=== PATIENT | female | born 1945 | race Caucasian/White ===

== ENCOUNTER 2019-12-23 09:06 | Emergency (ER) | payer MEDICARE, SELFPAY ==
[2019-12-23 09:16] VITALS: BP 122/87; PULSE 83; RESP 18; TEMP 36.4; O2SAT 100
--- NOTE | 2019-12-23 09:22 | ED.FEMALEGU ---
HPI - Female Genitourinary General Chief complaint: Urogenital-Female Stated complaint: Pos UTI Time Seen by Provider: 12/23/19 09:26 Source: patient and RN notes reviewed Mode of arrival: ambulatory Limitations: no limitations History of Present Illness HPI Narrative: 74-year-old female presents with concern for urinary tract infection. Reports suprapubic pressure for the last several days, today she noticed hematuria and dysuria. Reports history of urinary tract infections. She denies flank pain, abdominal pain, abnormal vaginal discharge or bleeding. MD elicited complaint: UTI Related Data Home Medications Medication Instructions Recorded Confirmed atorvastatin 20 mg tablet 20 mg PO DAILY 10/16/19 12/23/19 calcium carbonate 600 mg (1,500 1 tablet PO DAILY 10/16/19 12/23/19 mg)-vitamin D3 200 unit tablet cholecalciferol (vitamin D3) 50 2,000 unit PO DAILY 10/16/19 12/23/19 mcg (2,000 unit) tablet magnesium 30 mg tablet 60 mg PO DAILY tablet 10/16/19 12/23/19 multivitamin 1 tablet PO DAILY 10/16/19 12/23/19 omega-3 fatty acids 1,000 mg 1,000 mg PO DAILY 10/16/19 12/23/19 capsule Allergies Allergy/AdvReac Type Severity Reaction Status Date / Time No Known Allergies Allergy Unknown Verified 12/23/19 09:20 Review of Systems Review of Systems: Narrative: CONSTITUTIONAL: Denies malaise, chills, sweats, or fever. CARDIOVASCULAR: Denies chest pain, palpitations RESPIRATORY: Denies dyspnea. GASTROINTESTINAL: Denies abdominal pain, nausea, vomiting, diarrhea, bloody, or mucous stools. GENITOURINARY: Reports dysuria, suprapubic pressure, hematuria. MUSCULOSKELETAL: Denies back pain All systems reviewed & are unremarkable except as noted in HPI and below PMFSH Past Medical History Medical History (Updated 12/23/19 @ 09:34 by Francie Simmons NP) Allergies Eczema Hip pain Hyperlipidemia Osteoporosis Postherpetic neuralgia Surgical History Surgical History (Updated 10/16/19 @ 06:44 by Wen Matt CMA) H/O tubal ligation 1977 History of appendectomy 1961 Family History Family History (Updated 10/13/19 @ 12:40 by Wen Matt CMA) Daughter Heart valve disorder Mother Brain aneurysm Sibling Aortic dissection Social History Social History (Updated 10/16/19 @ 08:00 by Wen Matt [facility]) Smoking status: Former smoker Alcohol intake: current Comments At time of signature, agree with nursing past medical, surgical, social and family history. There is no relevant family history pertinent to the presenting complaint Exam Narrative: Exam Narrative: GENERAL: Well-appearing, well-nourished, and in no acute distress. HEAD: Normocephalic. EYES: PERRLA, conjunctivae clear. NECK: Supple. No lymphadenopathy CHEST: Clear to auscultation. No respiratory distress. HEART: Regular rate and rhythm. No murmur heard. Normal peripheral pulses. ABDOMEN: Soft, nontender upon palpation, nondistended, no palpable or pulsatile masses, no guarding. No CVA tenderness SKIN: Warm, dry, no rash. NEURO: Alert and oriented x3. PSYCH: Normal mood and affect Course Course Emergency Course: Patient is aware of diagnosis, understands and agrees to treatment plan. Anticipatory guidance given. Patient agrees to follow-up as directed and is aware of reasons to seek care at the emergency department. Portions of this record may have been created with voice recognition software Vital Signs Vital signs: Vital Signs Temperature 97.5 F L 12/23/19 09:16 Pulse Rate 83 12/23/19 09:16 Respiratory Rate 18 12/23/19 09:16 Blood Pressure 122/87 12/23/19 09:16 Pulse Oximetry 100 12/23/19 09:16 Temperature 97.5 F L 12/23/19 09:16 Pulse Rate 83 12/23/19 09:16 Respiratory Rate 18 12/23/19 09:16 Blood Pressure 122/87 12/23/19 09:16 Pulse Oximetry 100 12/23/19 09:16 Reviewed. Patient has been instructed to follow up with her primary care provider within the next week regarding
== END 2019-12-23 09:41 | disposition home or self-care (01) ==
PROVIDERS: Emergency Provider Nurse Practitioner; PCP Internal Medicine
DX: R30.0 Dysuria (principal); R31.9 Hematuria, unspecified; R10.30 Lower abdominal pain, unspecified; Z87.891 Personal history of nicotine dependence; E78.5 Hyperlipidemia, unspecified; M81.0 Age-related osteoporosis without current pathological fracture
CPT/HCPCS: 81003; 87077; 87086; 87088; 87186; 99213; G0463

== ENCOUNTER 2020-03-28 12:04 | Outpatient (CLI) | payer MEDICARE, SELFPAY ==
--- NOTE | ~2020-03-28 | XR_ITS ---
EXAMINATION: XR chest 2V DATE: 03/28/2020 12:17 INDICATION: Cough. TECHNIQUE: Frontal and lateral views of the chest were obtained. COMPARISON: None. FINDINGS: There is mild scarring at the lung apices. No pleural effusion or pneumothorax. The heart s ize is normal. IMPRESSION: 1. Mild scarring at the lung apices. Reviewed, dictated and finalized at location A.
== END 2020-03-28 12:05 | disposition home or self-care (01) ==
PROVIDERS: PCP Internal Medicine; Visit Provider Clinical Nurse Specialist
DX: R05 Cough (principal)
CPT/HCPCS: 71046

== ENCOUNTER 2020-06-08 09:18 | Emergency (ER) | payer MEDICARE, SELFPAY ==
--- NOTE | 2020-06-08 09:31 | ED.GENADULT ---
HPI - General Adult General Chief complaint: Urogenital-Female Stated complaint: Blood in urine Time Seen by Provider: 06/08/20 09:46 Source: patient Mode of arrival: ambulatory Limitations: no limitations History of Present Illness HPI narrative: 74-year-old female patient presents to the [facility] with complaints of blood in her urine that she noticed this morning. Patient states she does get UTIs frequently. Patient states she has had a little bit of discomfort to the left flank area. Denies any fevers, body aches or chills. Denies any nausea, vomiting or diarrhea. Related Data Home Medications Medication Instructions Recorded Confirmed atorvastatin 20 mg tablet 20 mg PO DAILY 10/16/19 06/08/20 calcium carbonate 600 mg (1,500 1 tablet PO DAILY 10/16/19 06/08/20 mg)-vitamin D3 200 unit tablet cholecalciferol (vitamin D3) 50 2,000 unit PO DAILY 10/16/19 06/08/20 mcg (2,000 unit) tablet multivitamin 1 tablet PO DAILY 10/16/19 06/08/20 omega-3 fatty acids 1,000 mg 1,000 mg PO DAILY 10/16/19 06/08/20 capsule teriparatide [Forteo] mcg SUBCUT 06/08/20 Allergies Allergy/AdvReac Type Severity Reaction Status Date / Time No Known Allergies Allergy Unknown Verified 06/08/20 09:36 Review of Systems Review of Systems: Narrative: CONSTITUTIONAL: Denies fever, chills, or sweats. EYES: Denies visual changes, redness, or discharge. ENT: Denies rhinorrhea, congestion, sore throat, or otalgia. CARDIOVASCULAR: Denies chest pain, palpitations, or edema. RESPIRATORY: Denies cough or dyspnea. GASTROINTESTINAL: Denies abdominal pain, nausea, vomiting, or diarrhea. GENITOURINARY: Denies dysuria, positive hematuria. SKIN: Denies rash or itching. MUSCULOSKELETAL: Denies back pain, joint pain, or myalgia. NEUROLOGIC: Denies headache, numbness, or weakness. PSYCHIATRIC: Denies anxiety or depression. [facility] Past Medical History Medical History Allergies Eczema Hip pain Hyperlipidemia Osteoporosis Postherpetic neuralgia Surgical History Surgical History H/O tubal ligation 1977 History of appendectomy 1961 Family History Family History Daughter Heart valve disorder Mother Brain aneurysm Sibling Aortic dissection Social History Social History Smoking status: Former smoker Alcohol intake: current Comments At the time of my signature I agree with nursing past medical history, surgical, social, and family history. There is no relevant family history pertinent to the presenting complaint. Exam Narrative: Exam Narrative: GENERAL: Well-appearing, well-nourished, and in no acute distress. HEAD: Normocephalic, atraumatic. EYES: PERRLA and EOMI. ENT: Nares clear, no rhinorrhea or epistaxis. Mucous membranes moist. NECK: Supple. No lymphadenopathy CHEST: Clear to auscultation. No respiratory distress. HEART: Regular rate and rhythm. No murmur heard. Normal peripheral pulses. ABDOMEN: Soft, nontender, nondistended, normal active bowel sounds. No CVA tenderness on percussion. Patient does have a little bit of tenderness to the suprapubic area on palpation. EXTREMITIES: Normal range of motion. No edema. SKIN: Warm, dry, no rash. NEURO: No focal deficits. Alert and oriented x3. Course Vital Signs Vital signs: Vital Signs Temperature 36.5 C 06/08/20 09:36 Pulse Rate 75 06/08/20 09:36 Respiratory Rate 12 06/08/20 09:36 Blood Pressure 130/63 06/08/20 09:36 Pulse Oximetry 97 06/08/20 09:36 Temperature 36.5 C 06/08/20 09:36 Pulse Rate 75 06/08/20 09:36 Respiratory Rate 12 06/08/20 09:36 Blood Pressure 130/63 06/08/20 09:36 Pulse Oximetry 97 06/08/20 09:36 Vital signs reviewed. Medical Decision Making Differential Diagnosis Differential Diagnosis: Di
[2020-06-08 09:36] VITALS: BP 130/63; PULSE 75; RESP 12; TEMP 36.5; O2SAT 97
== END 2020-06-08 10:00 | disposition home or self-care (01) ==
PROVIDERS: Emergency Provider Nurse Practitioner Family; PCP Internal Medicine
DX: N30.01 Acute cystitis with hematuria (principal); Z87.891 Personal history of nicotine dependence; E78.5 Hyperlipidemia, unspecified; M81.0 Age-related osteoporosis without current pathological fracture; B02.29 Other postherpetic nervous system involvement
CPT/HCPCS: 81003; 87077; 87086; 87088; 87186; 99213; G0463

== ENCOUNTER 2020-07-02 08:07 | Outpatient (CLI) | payer MEDICARE, SELFPAY ==
--- NOTE | ~2020-07-02 | MM_ITS ---
EXAMINATION: MM screening [facility] HISTORY: Screening mammogram TECHNIQUE: Craniocaudal and mediolateral oblique 3-D tomosynthesis images were obtained and synthetic 2-D images were generated. CAD analysis was submitted and interpreted. COMPARISON: 06/09/2019, 05/23/2018, 02/04/2017 bilateral digital screening mammogram examinations BREAST PARENCHYMAL COMPOSITION: There are scattered areas of fibroglandular density. FINDINGS: There is stable fibroglandular asymmetry. There is no evidence of suspicious mass, calcific ation, or architectural distortion to suggest malignancy in either breast. There has been no suspicio us interval change. IMPRESSION: 1. No mammographic evidence of malignancy. 2. Recommend routine screening mammography in one year. BI-RADS Category 2: Benign finding(s). Reviewed, dictated and finalized at location A.
== END 2020-07-02 08:08 | disposition home or self-care (01) ==
PROVIDERS: PCP Internal Medicine; Visit Provider Internal Medicine
DX: Z12.31 Encounter for screening mammogram for malignant neoplasm of breast (principal)
CPT/HCPCS: 77063; 77067

== ENCOUNTER 2021-04-10 09:12 | Outpatient (CLI) | payer MEDICARE, SELFPAY ==
--- NOTE | ~2021-04-10 | DEXA_ITS ---
Bone Density Report Name: Sarita Lieberman Age: 75 Sex: Female Ethnicity: White Date of : 1945 Indication: postmenopausal osteoporosis; monitoring treatment; height loss; Referring Provider: Sushil, Crystal Freire Study: Bone densitometry was performed. Exam Date: April 10, 2021 Accession number: [id number] Bone Density: Region BMD T-score Z-score Classification AP Spine (L1-L4) 0.684 -3.3 -0.9 Osteoporosis Femoral Neck (Left) 0.554 -2.7 -0.6 Osteoporosis Total Hip (Left) 0.717 -1.8 -0.1 Osteopenia World Health Organization criteria for BMD impression classify patients as: Normal (T-score at or above -1.0), Osteopenia (T-score between -1.0 and -2.5), or Osteoporosis (T-score at or below -2.5). 10-year Fracture Risk: FRAX not reported because: Some T-score for Spine Total or Hip Total or Femoral Neck at or below -2.5 Treated for osteoporosis Previous Exams: Region Exam Age BMD T-score BMD Change BMD Change Date g/cm2 vs Baseline vs Previous AP Spine(L1-L4) 04/10/2021 75 0.684 -3.3 0.032(5.0%)* 0.032(5.0%)* 09/15/2018 72 0.652 -3.6 Total Hip(Left) 04/10/2021 75 0.717 -1.8 -0.012(-1.7%) -0.012(-1.7%) 09/15/2018 72 0.729 -1.7 *Denotes significance at 95% confidence level, LSC for AP Spine = 0.022 g/cm2, LSC for Total Hip = 0.027 g/cm2 Clinical Information Provided by Patient: Is being treated for osteoporosis Has used the following medications: Forteo (i.e. parathyroid hormone), Vitamin D, Calcium Patient maximum height was 65 Menopause Age: 46 Drinks caffeinated beverages Onset of menses at age 14 Number of children 2 Impression: The patient has osteoporosis, based on the Total Spine T-score. No significant bone loss was observed. Discussion: PATIENT UNDER TREATMENT WITH NO SIGNIFICANT BMD LOSS SINCE LAST EXAM. In an untreated patient, BMD typically declines with age. A lack of decline or gain is usually a sign that treatment is efficacious and fracture risk is reduced. It is important to ask patients whether they are taking their medications and to encourage continued and appropriate compliance with their osteoporosis therapies to reduce fracture risk. It is also important to review their risk factors and encourage appropriate calcium and vitamin D intakes, exercise, fall prevention and other lifestyle measures. Follow-Up: Consider a repeat BMD and Vertebral Fracture Assessment (VFA) exam in 2 years or sooner if medically necessary, to reassess this patient's status. Reported by: JORGE LUIS on 04/10/2021 9:36:00 A
== END 2021-04-10 09:13 | disposition home or self-care (01) ==
PROVIDERS: PCP Internal Medicine; Visit Provider Internal Medicine Endocrinology, Diabetes & Metabolism
DX: M81.0 Age-related osteoporosis without current pathological fracture (principal); M85.88 Other specified disorders of bone density and structure, other site
CPT/HCPCS: 77080

== ENCOUNTER 2021-07-08 08:57 | Outpatient (CLI) | payer MEDICARE, SELFPAY ==
--- NOTE | ~2021-07-08 | MM_ITS ---
EXAMINATION: MM screening [facility] HISTORY: Screening TECHNIQUE: Craniocaudal and mediolateral oblique 3-D tomosynthesis images were obtained and synthetic 2-D images were generated. CAD analysis was submitted and interpreted. COMPARISON: Comparison to multiple prior studies sequentially, with oldest reviewed study dated 11/26. BREAST PARENCHYMAL COMPOSITION: Breast composed of scattered areas of fibroglandular density. FINDINGS: There is no evidence of suspicious mass, calcification, or architectural distortion to sugg est malignancy in either breast. There has been no suspicious interval change. IMPRESSION: 1. No mammographic evidence of malignancy. 2. Recommend routine screening mammography in one year. BI-RADS Category 1: Negative Reviewed, dictated and finalized at location A.
== END 2021-07-08 08:58 | disposition home or self-care (01) ==
PROVIDERS: PCP Internal Medicine; Visit Provider Obstetrics & Gynecology
DX: Z12.31 Encounter for screening mammogram for malignant neoplasm of breast (principal)
CPT/HCPCS: 77063; 77067

== ENCOUNTER → 2021-11-03 09:49 | Outpatient (CLI) | payer MEDICARE, SELFPAY ==
--- NOTE | ~2021-11-03 | CT_ITS ---
EXAMINATION: CT cervical spine wo con DATE: 11/03/2021 10:03 INDICATION: Spondylolisthesis, cervical region. TECHNIQUE: Computed tomography (CT) of the cervical spine was performed without intravenous contrast. Automated exposure control and iterative reconstruction technique were employed. The dose-length pro duct was 122.20 mGy-cm. COMPARISON: None FINDINGS: There is mild scarring at the lung apices. There is 4 degrees dextrocurvature of cervical s pine. There is 3 mm anterolisthesis of C4 on C5 and 2 mm retrolisthesis of C5 on C6. Vertebral body h eights are normal. There is moderately decreased disc height at C4-C5, severely decreased disc height at C5-C6, and mildly decreased disc height at C6-C7. The following disc levels are specifically disc ussed: C2-C3: There is no uncovertebral joint osteoarthritis. There is moderate right and severe left facet joint osteoarthritis. There is no neural foraminal stenosis. There is no central canal stenosis. C3-C4: There is no uncovertebral joint osteoarthritis. There is severe bilateral facet joint osteoart hritis. There is no neural foraminal stenosis. There is no central canal stenosis. C4-C5: There is moderate right and mild left uncovertebral joint osteoarthritis. There is severe bila teral facet joint osteoarthritis. There is no neural foraminal stenosis. There is mild central canal stenosis. C5-C6: There is severe bilateral uncovertebral joint osteoarthritis. There is mild bilateral facet tarik int osteoarthritis. There is mild bilateral neural foraminal stenosis. There is mild central canal st enosis. C6-C7: There is mild right and moderate left uncovertebral joint osteoarthritis. There is mild bilate ral facet joint osteoarthritis. There is mild left neural foraminal stenosis. There is mild central c anal stenosis. C7-T1: There is no uncovertebral joint osteoarthritis. There is severe bilateral facet joint osteoart hritis. There is no neural foraminal stenosis. There is no central canal stenosis. IMPRESSION: 1. Severe cervical spondylosis. Reviewed, dictated and finalized at location A. R LATCHER
== END ==
PROVIDERS: PCP Family Medicine; Visit Provider Family Medicine
DX: M43.12 Spondylolisthesis, cervical region (principal)
CPT/HCPCS: 72125

== ENCOUNTER 2022-09-18 08:22 | Outpatient (CLI) | payer MEDICARE, SELFPAY ==
--- NOTE | ~2022-09-18 | MM_ITS ---
EXAMINATION: MM screening [facility] HISTORY: Screening mammogram TECHNIQUE: Craniocaudal and mediolateral oblique 3-D tomosynthesis images were obtained and synthetic 2-D images were generated. CAD analysis was submitted and interpreted. COMPARISON: 06/30/2021, 07/02/2020, 06/09/2019 BREAST PARENCHYMAL COMPOSITION: There are scattered areas of fibroglandular density. FINDINGS: No suspicious mass, calcification, or architectural distortion are identified in either collin ast to suggest malignancy. There has been no suspicious interval change. IMPRESSION: 1. No mammographic evidence of malignancy. 2. Recommend routine screening mammography in one year. BI-RADS Category 1: Negative Reviewed, dictated and finalized at location A. THESIOLOGY MEDICAL DOCTOR
== END 2022-09-18 08:23 | disposition home or self-care (01) ==
PROVIDERS: PCP Nurse Practitioner Family; Visit Provider Family Medicine
DX: Z12.31 Encounter for screening mammogram for malignant neoplasm of breast (principal)
CPT/HCPCS: 77063; 77067

== ENCOUNTER 2023-05-17 08:18 | Emergency (ER) | payer MEDICARE, SELFPAY ==
--- NOTE | 2023-05-17 08:26 | ED.FEMALEGU ---
HPI - Female Genitourinary General Chief complaint: Urogenital-Female Stated complaint: UTI symtoms Time Seen by Provider: 05/17/23 08:27 Source: patient Mode of arrival: ambulatory Limitations: no limitations History of Present Illness HPI Narrative: Sarita is a 77-year-old female patient presenting to the clinic today with complaints of possible UTI. She reports she developed symptoms yesterday with burning, frequency, urgency, and blood in her urine with blood clots. States she is having some lower abdominal bladder pain. Denies any fever, chills, nausea, vomiting, diarrhea, or flank pain. States she gets urinary tract infections approximately 1 time per year. Related Data Home Medications Medication Instructions Recorded Confirmed multivitamin 1 tablet PO DAILY 10/16/19 05/17/23 omega-3 fatty acids-fish oil 300 1 cap PO DAILY 10/10/20 05/17/23 mg-500 mg capsule (Fish Oil) cholecalciferol (vitamin D3) 125 125 mcg PO DAILY 07/15/21 05/17/23 mcg (5,000 unit) capsule atorvastatin 40 mg tablet 40 mg PO DAILY 11/06/21 05/17/23 ezetimibe 10 mg tablet (Zetia) 10 mg PO DAILY 05/06/22 05/17/23 Allergies Allergy/AdvReac Type Severity Reaction Status Date / Time No Known Allergies Allergy Unknown Verified 05/17/23 08:30 Review of Systems Review of Systems: Pertinent positives per HPI. Patient denies any fever, chills, rash, headache, visual changes, dizziness, cough, runny nose, sore throat, shortness of breath, chest pain, palpitations, nausea, vomiting, diarrhea, constipation. [facility] Past Medical History Medical History Abscess (~05/24/22) infected sebaceous cyst right lower abdomen Allergies Anterolisthesis of cervical spine (~10/23/21) grade 2 anterolisthesis of C4 on C5, unstable with slippage on flexion and extension films on 10/23/2021 by chiropractor . Severe cervical spondylosis on CT of the cervical spine on 11/03/2021 Anxiety B12 deficiency BMI 22.0-22.9, adult BMI 23.0-23.9, adult Breast cancer screening by mammogram mammogram normal 09/18/2022. Chronic neck pain Eczema Elevated serum creatinine Encounter to establish care Family history of cerebral aneurysm mother at age 57 of a cerebral aneurysm Family history of dissection of thoracic aorta sister of a dissecting thoracic aortic aneurysm. 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 Hip pain Hyperlipidemia Osteoporosis Overactive bladder Postherpetic neuralgia Surgical History Surgical History H/O tubal ligation 1977 History of appendectomy 1961 History of hip replacement Right hip 11/14/2018 Family History Family History Daughter Heart valve disorder Mother Brain aneurysm Heart disease Sibling Aortic dissection Heart disease Social History Social History Smoking status: Former smoker Alcohol intake: current Alcohol use details: Pt drinks occasionally. Substance use: never Substance use type: does not use Comments At the time of my signature, I reviewed and agree with the nursing past medical, surgical, social, and family history. There is no relevant family history pertinent to the patient complaint. Exam Narrative: General: Well-developed, well nourished, in no apparent distress. Head: Normocephalic, atraumatic. Cardio: Regular rate and rhythm, s1 and s2 normal, no murmur appreciated. Resp: Clear to auscultation bilaterally, no rhonchi, rales, wheezing or rubs. Abdomen: Soft, pliable, bowel sounds present in all quadrants, tender to palpation over the suprapubic area, no organomegly, no CVAT tenderness. Course Course Emergency Course: Portions of this record may have been created with voice recognition software. Level
[2023-05-17 08:35] VITALS: BP 153/86; PULSE 78; RESP 16; TEMP 36.8; O2SAT 99
--- NOTE | 2023-05-17 08:56 | PC.NURSE ---
0848- went in to discharge pt, and explained medications, and pt states that she thinks bactrim is the one abx that made her really sick, and i asked what sick she had, and states that she couldnt recall but just knew that she was ill. i informed provider and he is going in to talk with her.
== END 2023-05-17 09:00 | disposition home or self-care (01) ==
PROVIDERS: Emergency Provider Nurse Practitioner Family; PCP Family Medicine
DX: N30.01 Acute cystitis with hematuria (principal); Z87.891 Personal history of nicotine dependence; E78.5 Hyperlipidemia, unspecified; M81.0 Age-related osteoporosis without current pathological fracture; Z96.641 Presence of right artificial hip joint
CPT/HCPCS: 81003; 87077; 87086; 87186; 99213; G0463

== ENCOUNTER 2024-01-31 07:07 | Outpatient (CLI) | payer MEDICARE, SELFPAY ==
--- NOTE | ~2024-01-31 | MM_ITS ---
EXAMINATION: MM screening [facility] HISTORY: Screening mammogram TECHNIQUE: Craniocaudal and mediolateral oblique 3-D tomosynthesis images were obtained and synthetic 2-D images were generated. CAD analysis was submitted and interpreted. COMPARISON: 09/18/2022, 07/08/2021 bilateral screening mammogram examinations BREAST PARENCHYMAL COMPOSITION: There are scattered areas of fibroglandular density. FINDINGS: There is no evidence of suspicious mass, calcification, or architectural distortion to sugg est malignancy in either breast. There has been no suspicious interval change. IMPRESSION: 1. No mammographic evidence of malignancy. 2. Recommend routine screening mammography in one year. BI-RADS Category 1: Negative Reviewed, dictated and finalized at location A.
== END 2024-01-31 07:08 | disposition home or self-care (01) ==
LOC: ANHIMG 07:13
PROVIDERS: PCP Family Medicine; Visit Provider Obstetrics & Gynecology
DX: Z12.31 Encounter for screening mammogram for malignant neoplasm of breast (principal)
CPT/HCPCS: 77063; 77067

== ENCOUNTER 2024-02-03 05:52 | Day surgery (SDC) | payer MEDICARE, SELFPAY ==
[2023-11-16 10:45] VITALS: BMI 22.6
--- NOTE | 2024-02-02 11:24 | WPDANESEPPF ---
Anes - Initial Pre Proc Eval Procedure: Operation Date: 02/03/24 07:30 Proposed Procedures p Screening Colonoscopy - Yair Kebede MD Date/Time: 02/02/24 11:24 Surgeon: Yair Kebede MD Pre Op Diagnosis: Neoplasm Screening Patient Data Age: 78 Gender: F Height: 1.63 m Weight: 61.5 kg Allergies Allergy/AdvReac Type Severity Reaction Status Date / Time No Known Allergies Allergy Unknown Verified 02/03/24 06:30 Home Medications Medication Instructions Recorded Confirmed Type multivitamin 1 tablet PO DAILY 10/16/19 12/23/23 History omega-3 fatty acids-fish oil 300 1 cap PO DAILY 10/10/20 12/23/23 History mg-500 mg capsule (Fish Oil) atorvastatin 40 mg tablet 40 mg PO DAILY 11/06/21 02/03/24 History ezetimibe 10 mg tablet (Zetia) 10 mg PO DAILY 05/06/22 12/23/23 History cholecalciferol (vitamin D3) 25 25 mcg PO DAILY 11/15/23 12/23/23 History mcg (1,000 unit) capsule trimethoprim 100 mg tablet 100 mg PO QHS 11/15/23 12/23/23 History sodium,potassium,mag sulfates 17.5 See Rx Instructions PO .COMPLEX 11/16/23 02/03/24 Rx gram-3.13 gram-1.6 gram oral soln #354 mL (Suprep Bowel Prep Kit) Patient hx anesthesia problems: none Family hx anesthesia problems: none Results Review: All pre-operative results and documents have been reviewed as part of the pre-operative evaluation. [facility] Past Medical History Medical History (Updated 01/31/24 @ 19:16 by Nestor Estrella MD) Abscess (~05/24/22) infected sebaceous cyst right lower abdomen Allergies Anterolisthesis of cervical spine (~10/23/21) grade 2 anterolisthesis of C4 on C5, unstable with slippage on flexion and extension films on 10/23/2021 by chiropractor . Severe cervical spondylosis on CT of the cervical spine on 11/03/2021 Anxiety B12 deficiency BMI 22.0-22.9, adult BMI 23.0-23.9, adult Breast cancer screening by mammogram mammogram normal 09/18/2022. Normal mammogram 01/31/2024. Chronic neck pain Colon cancer screening Dysuria Eczema Elevated liver enzymes Elevated serum creatinine Encounter to establish care Family history of cerebral aneurysm mother at age 57 of a cerebral aneurysm Family history of dissection of thoracic aorta sister of a dissecting thoracic aortic aneurysm. 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 Hip pain Hyperlipidemia Osteoporosis Overactive bladder Postherpetic neuralgia UTI (urinary tract infection) Surgical History Surgical History H/O tubal ligation 1977 History of appendectomy 1961 History of hip replacement Right hip 11/14/2018 Family History Family History Daughter Heart valve disorder Mother Brain aneurysm Heart disease Sibling Aortic dissection Heart disease Social History Social History Smoking status: Never smoker Alcohol intake: current Drinks per week: 2 Alcohol use details: Pt drinks occasionally. Substance use: never Substance use type: does not use Living arrangements: with family Anes - Eval Final PreProcedure Day of Procedure 02/02/24 11:24 Patient weight: normal Heart: regular rate and rhythm Lungs: clear to auscultation and normal air movement Airway: Mallampati scale class II Neurological: alert and oriented Last oral intake: >/= 8 hours ASA classification: II Emergent: no Anesthetic plan: proceed Anesthesia type and monitoring: general GIVS and standard monitoring Results Review: All pre-operative results and documents have been reviewed as part of the pre-operative evaluation. Informed Consent: The patient's anesthetic plan and its attendant risks and benefits were discussed with the patient/family/POA. Questions were solicited and answers provided to the satisfaction of the patient/family/POA.
[2024-02-03 06:46] VITALS: BP 130/83; PULSE 82; RESP 16; TEMP 36.9; O2SAT 100; BMI 22.6
[2024-02-03] MEDS: LACTATED RINGERS 1,000 ML 150 ML IV CONT (06:56)
--- NOTE | 2024-02-03 07:17 | PM.HPGS ---
History of Present Illness History of Present Illness Consent: Risks, benefits, and alternatives have been discussed and questions answered. Patient agrees to proceed with procedure. Chief complaint: Neoplasm Screening Narrative: Sarita Lieberman is a 78 year old female presents for screening colonoscopy. Patient's current weight appetite and bowel movements are normal. Patient is abdominal pain. She has had no bleeding. Family history is noncontributory. Review of Systems Review of Systems: All systems reviewed & are unremarkable except as noted in HPI and below PMFSH Past Medical History Medical History (Updated 01/31/24 @ 19:16 by Nestor Estrella MD) Abscess (~05/24/22) infected sebaceous cyst right lower abdomen Allergies Anterolisthesis of cervical spine (~10/23/21) grade 2 anterolisthesis of C4 on C5, unstable with slippage on flexion and extension films on 10/23/2021 by chiropractor . Severe cervical spondylosis on CT of the cervical spine on 11/03/2021 Anxiety B12 deficiency BMI 22.0-22.9, adult BMI 23.0-23.9, adult Breast cancer screening by mammogram mammogram normal 09/18/2022. Normal mammogram 01/31/2024. Chronic neck pain Colon cancer screening Dysuria Eczema Elevated liver enzymes Elevated serum creatinine Encounter to establish care Family history of cerebral aneurysm mother at age 57 of a cerebral aneurysm Family history of dissection of thoracic aorta sister of a dissecting thoracic aortic aneurysm. 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 Hip pain Hyperlipidemia Osteoporosis Overactive bladder Postherpetic neuralgia UTI (urinary tract infection) Surgical History Surgical History H/O tubal ligation 1977 History of appendectomy 1961 History of hip replacement Right hip 11/14/2018 Family History Family History Daughter Heart valve disorder Mother Brain aneurysm Heart disease Sibling Aortic dissection Heart disease Social History Social History Smoking status: Never smoker Alcohol intake: current Drinks per week: 2 Alcohol use details: Pt drinks occasionally. Substance use: never Substance use type: does not use Living arrangements: with family Meds Home Medications and Allergies Home Medications Medication Instructions Recorded Confirmed Type multivitamin 1 tablet PO DAILY 10/16/19 12/23/23 History omega-3 fatty acids-fish oil 300 1 cap PO DAILY 10/10/20 12/23/23 History mg-500 mg capsule (Fish Oil) atorvastatin 40 mg tablet 40 mg PO DAILY 11/06/21 02/03/24 History ezetimibe 10 mg tablet (Zetia) 10 mg PO DAILY 05/06/22 12/23/23 History cholecalciferol (vitamin D3) 25 25 mcg PO DAILY 11/15/23 12/23/23 History mcg (1,000 unit) capsule trimethoprim 100 mg tablet 100 mg PO QHS 11/15/23 12/23/23 History sodium,potassium,mag sulfates 17.5 See Rx Instructions PO .COMPLEX 11/16/23 02/03/24 Rx gram-3.13 gram-1.6 gram oral soln #354 mL (Suprep Bowel Prep Kit) Allergies Allergy/AdvReac Type Severity Reaction Status Date / Time No Known Allergies Allergy Unknown Verified 02/03/24 06:30 Vital Signs Vital Signs - 24 hr 02/03/24 06:46 Temperature 98.4 F Pulse Rate 82 Respiratory Rate 16 Blood Pressure 130/83 Pulse Oximetry 100 Oxygen Delivery Room Air Exam Narrative: Physical exam reveals patient to be alert. Vital signs stable. HEENT exam is unremarkable. Patient is anicteric. Lungs are clear to auscultation and percussion. Heart is without murmur or extra sounds. Abdomen bowel sounds are present soft nontender with we. Digital external rectal exam is normal. Assessment and Plan Assessment and plan (1) Colon cancer screening: Code(s): Z12.11 - Encounter for screening for malignant neoplasm of colon Status
[2024-02-03 07:45] VITALS: BP 111/62; PULSE 83; RESP 18; O2SAT 98
[2024-02-03 07:55] VITALS: BP 114/77; PULSE 71; RESP 14; O2SAT 99
[2024-02-03 08:05] VITALS: BP 117/96; PULSE 66; RESP 16; O2SAT 100
--- NOTE | 2024-02-03 11:25 | WPDANESPN ---
Anes - Prog Note Post-Op Date/Time: 02/03/24 11:25 Cardiovascular status: normal Respiratory status: normal Airway patency: baseline Mental status: baseline Post-Op hydration status: normal Vital Signs: Last Vital Signs Temp 36.9 C 02/03/24 06:46 Pulse 66 02/03/24 08:05 Resp 16 02/03/24 08:05 BP 117/96 H 02/03/24 08:05 Pulse Ox 100 02/03/24 08:05 O2 Del Method Room Air 02/03/24 08:05 Pain Score (VAS): 0 I/O: Intake & Output 02/02/24 02/03/24 02/03/24 23:59 07:59 15:59 Intake Total 300 300 Balance 300 300 Post-procedural complaints: none Patient Feedback: Patient satisfied with anesthetic care. Other Findings: Patient vital signs back to baseline. Patient denies nausea and vomiting. Patient's pain under control. Patient OK for discharge.
== END 2024-02-03 08:14 | disposition home or self-care (01) ==
PROVIDERS: PCP Family Medicine; Visit Provider Internal Medicine Gastroenterology
PROC: 0DJD8ZZ Inspection of Lower Intestinal Tract, Via Natural or Artificial Opening Endoscopic (ICD-10-PCS; CPT 45378; principal; 2024-02-03 07:30)
DX: Z12.11 Encounter for screening for malignant neoplasm of colon (principal); K57.30 Diverticulosis of large intestine without perforation or abscess without bleeding; K64.8 Other hemorrhoids
CPT/HCPCS: 45378

== ENCOUNTER 2025-03-28 13:03 | Emergency (ER) | payer MEDICARE, SELFPAY ==
--- NOTE | ~2025-03-28 | CT_ITS ---
CLINICAL INDICATION: Left flank pain COMPARISON: None. TECHNIQUE: Multiple contiguous axial images of the abdomen and pelvis were performed following the ad ministration of with 100 mL Omnipaque-350 intravenous contrast The dose-length product (DLP) was 293.81 mGy-cm. Automated exposure control and iterative reconstruction technique were employed. FINDINGS/OBSERVATIONS: Visualized lower thorax: The bilateral lung bases are clear. The heart is of normal size, without pericardial effusion. Liver: The liver demonstrates homogeneous enhancement and is enlarged measuring 19 cm in longitudinal dimens ion. Gallbladder and biliary system: The gallbladder is distended, with layering sludge.. Pancreas: The pancreas enhances homogeneously without ductal dilatation. Spleen: The spleen enhances homogeneously and is not enlarged. Kidneys: Global enlargement of the left kidney with surrounding inflammatory change. Left-sided hydronephrosis is also suspected. No obstructing stone is identified. The right kidney is unremarkable, as is the right ureter. Adrenal glands: Unremarkable. Gastrointestinal tract: Colonic diverticulosis without surrounding inflammatory change. Fecal stasis within the colon. Appendix: The appendix is not definitively visualized. However, no pericecal inflammatory change is identified suggest the presence of acute appendicitis. Vasculature: Unremarkable. Lymph nodes: Limited evaluation without intravenous contrast. Pelvic structures: The bladder is distended, and otherwise unremarkable. The uterus is not visualized, presumably surgically absent. Body wall and musculoskeletal: Small fat-containing umbilical hernia. Age-appropriate degenerative disease within the lumbosacral spine. IMPRESSION: Global enlargement of the left kidney with lower and midpole hydronephrosis. Limited evaluation beyond this characterization for which contrast enhanced imaging is suggested (if the patient is clinically able). Reviewed, dictated and finalized at location A. IMPRESSION: Global enlargement of the left kidney with lower and midpole hydronephrosis. Limited evaluation beyond this characterization for which contrast enhanced vladimir ging is suggested (if the patient is clinically able).
[2025-03-28 13:16] VITALS: BP 111/64; PULSE 113; RESP 20; TEMP 36.8; O2SAT 94
[2025-03-28 14:17] LABS: Add Urine Microscopic? YES; Appearance Urine Turbid (Clear); Bacteria Urine 4+ /hpf; Bilirubin Urine Negative (Negative); Blood Urine 2+ (Negative); Color Urine Yellow (Yellow); Glucose Urine UA Negative (Negative); Ketones Urine Trace mg/dL (Negative); Leukocyte Esterase Ur 3+ LEU/UL (Negative); Nitrate Urine Positive (Negative); Protein Urine 2+ mg/dL (Negative); Specific Grav Ur 1.019 (1.001-1.035); Squamous Epithelial Cell Urine Few /hpf (Few); Urobilinogen Urine 0.2 mg/dL (<2.0); WBC Urine >100 /hpf (0-3); pH Urine 5.5 (5.0-9.0)
--- OUTSIDE RECORDS SUMMARY | 2025-03-28 14:30 | XMS_ITS | Encounter Summary ---
Author Organization [facility] Healthcare Address [address] [place] [address] Care Team Providers Care Tie Tape Machine Operator Name Role Phone Nestor Estrella MD Primary Care Provider [phone] Reason for Referral * Diagnostic Imaging (Routine) - Closed Specialty Diagnoses / Procedures Referred By Conttavon cali Referred To Contact Diagnoses Family history of aneurysm Procedures US Abdominal Aortic Aneurysm Screening Stephan Bai MD [address] [address] Phone: tel: fax: [facility] Medical [facility] Referral ID Status Reason Start Date Expiration Date Visits Re quested Visits Authorized [id number] Closed 03/19/2025 04/18/2026 1 1 Reason for Visit * Diagnostic Imaging (Routine) - Closed Specialty Diagnoses / Procedures Referred By Alisha cali Referred To Contact Diagnoses Family history of aneurysm Procedures US Abdominal Aortic Aneurysm Screening Stephan Bai MD [address] [facility] [address] [address] Phone: tel: fax: [facility] Referral ID Status Reason Start Date Expiration Date Visits Re quested Visits Authorized [id number] Closed 03/19/2025 04/18/2026 1 1 Encounter Details Date Type Department Care Team (Latest Contact Info) Description 03/26/2025 8:20 AM CDT - 03/26/2025 11:59 PM CDT Hospital Encounter [facility] - Imaging [address] [place] [address] Family history of aneurysm Discharge Disposition: Discharge to home or self care Social History Tobacco Use Types Packs/Day Years Used Date Smoking Tobacco: Former Cigarettes Q uit: 1987 Smokeless Tobacco: Never Comments:Smoking History Pac ks/day: 1 Packs Alcohol Use Standard Drinks/Week Comments Yes 0 (1 standard drink = 0.6 oz pur e alcohol) Comments Unknown Sex and Gender Information Value Date Recorded Sex Assigned at Not on file Legal Sex Female 2:47 AM [employer] Gender Identity Female 06/09/2021 2:32 PM CDT Sexual Orientation Straight 06/09/2021 2: 32 PM CDT documented as of this encounter Medications at Time of Discharge aspirin 81 mg enteric coated tablet Take 1 tablet (81 mg total) by mouth daily calcium carbonate-vitami n D3 1,500 mg (600mg elemental) -800 unit per tablet Take 1 tablet by mouth daily cholecalciferol (VITAMIN D-3) 2,000 unit capsule Take 1 capsule (2,000 Units total) by mouth daily estradioL (ESTRACE) 0.01 % (0.1 mg/gram) vaginal cream INSERT 1 GRAM (FINGERTIP AMOUNT) VAGINALLY 2 NIGHTS PER WEEK 11/29/2023 ezetimibe (ZETIA) 10 mg tablet TAKE 1 TABLET BY MOUTH DAILY 100 tablet 3 11/20/2024 ibuprofen (ADVIL,MOTRIN) 800 mg tablet Take by mouth every 8 (eight) hours as needed 12/13/2023 magnesium oxide 500 mg capsule Take 1 Caplet by mouth daily MULTIVIT-MINERAL S/FERROUS FUM (MULTI VITAMIN ORAL) Take 2 tablet/chew tab by mouth daily omega-3 fatty acids 1,000 mg capsule Take 1 tablet by mouth daily. rosuvastatin (CRESTOR) 40 mg tablet Take 1 tablet (40 mg total) by mouth daily 30 tablet 11 01/30/2025 trimethoprim (TRIMPEX) 100 mg tablet Take 1 tablet (100 mg total) by mouth nightly 10/26/2023 ubidecarenone (coenzyme Q10) 100 mg tablet Take by mouth cash applications coordinator before breakfast documented as of this encounter Discharge Disposition Disposition Code Departure Means Destination Discharge to home or self care documented in this encounter Plan of Treatment Not on file documented as of this encounter Procedures Procedure Name Priority Date/Time Associated Diagnosis Comments US ABDOMINAL AORTIC ANEURYSM SCREENING Schedule Routine, Read Routine (OP Routine) 03/26/2025 8:37 AM CDT Family history of aneurysm documented in this encounter Results * US Abdominal Aortic Aneurysm Screening (03/26/2025 8:37 AM CDT) Anatomical Region Laterality Modality Abdomen Ultrasound 03/26/2025 8:44 AM CDT Impressions 03/26/2025 8:44 AM CDT Abdominal aortic atherosclerosis without evidence of aneurysm. Electronically signed by: Andrew Velez M.D. Narrative 03/26/2025 8:44 AM CDT EXAM: US ABDOMINAL AORTIC ANEURYSM SCREENING CLINICAL HISTORY: Screening for abdominal aortic aneurysm. COMPARISON: None available. FINDINGS: There is abdominal aortic atherosclerosis. The proximal abdominal aorta measures 2.0 x 1.9 cm. The mid abdominal aorta measures 1.6 x 1.5 cm. The distal abdominal aorta measures 1.6 x 1.4 cm. Both common iliac arteries are of normal caliber. No periaortic mass or fluid collection is identified. Procedure Note Andrew Velez MD - 03/26/2025 EXAM: US ABDOMINAL AORTIC ANEURYSM SCREENING CLINICAL HISTORY: Screening for abdominal aortic aneurysm. COMPARISON: None available. FINDINGS: There is abdominal aortic atherosclerosis. The proximal abdominal aorta measures 2.0 x 1.9 cm. The mid abdominal aorta measures 1.6 x 1.5 cm. The distal abdominal aorta measures 1.6 x 1.4 cm. Both common iliac arteries are of normal caliber. No periaortic mass or fluid collection is identified. IMPRESSION: Abdominal aortic atherosclerosis without evidence of aneurysm. Electronically signed by: Andrew Velez M.D. Stephan Bai MD IMG PROCEDURES Final Result documented in this encounter Visit Diagnoses Diagnosis Family history of aneurysm Family history of other condition documented in this encounter Care Teams Tie Tape Machine Operator Relationship Specialty Start Date End Date Nestor Estrella MD [address] [address] PCP - General Family Medicine 06/18/21 documented as of this encounter
--- OUTSIDE RECORDS SUMMARY | 2025-03-28 14:30 | XMS_ITS | Clinical Summary ---
[facility] Address [address] [place] [id number] Care Team Providers Care Speed Belt Sander Tender Name Role Phone Nestor Estrella MD Primary Care Provider [phone] Allergies No known active allergies Medications calcium carbonate-vitam in D3 1,500 mg (600mg elemental) -800 unit per tablet Take 1 tablet by mouth daily Active MULTIVIT-MINERA LS/FERROUS FUM (MULTI VITAMIN ORAL) Take 2 tablet/chew tab by mouth daily Active omega-3 fatty acids 1,000 mg capsule Take 1 tablet by mouth daily. Active cholecalciferol (VITAMIN D-3) 2,000 unit capsule Take 1 capsule (2,000 Units total) by mouth daily Active magnesium oxide 500 mg capsule Take 1 Caplet by mouth daily Active estradioL (ESTRACE) 0.01 % (0.1 mg/gram) vaginal cream INSERT 1 GRAM (FINGERTIP AMOUNT) VAGINALLY 2 NIGHTS PER WEEK 4 Active trimethoprim (TRIMPEX) 100 mg tablet Take 1 tablet (100 mg total) by mouth nightly 4 Active ibuprofen (ADVIL,MOTRIN) 800 mg tablet Take by mouth every 8 (eight) hours as needed 4 Active aspirin 81 mg enteric coated tablet Take 1 tablet (81 mg total) by mouth daily Active ubidecarenone (coenzyme Q10) 100 mg tablet Take by mouth car clerk pullman before breakfast Active ezetimibe (ZETIA) 10 mg tablet TAKE 1 TABLET BY MOUTH DAILY 100 tablet 3 5 Active rosuvastatin (CRESTOR) 40 mg tablet Take 1 tablet (40 mg total) by mouth daily 30 tablet 11 5 01/31/20 26 Active Active Problems Problem Noted Date Diagnosed Date COVID-19 virus infection 12/09/2022 Coronary artery calcification seen on CT scan Assessment & Plan (03/19/2025 11:37 AM CDT): Doing well without angina. The patient is aware of the need for Primary prevention through aggressive CV risk factor modifications to include: blood pressure control, LDL control, and daily exercise (per guidelines), etc. Assessment & Plan (01/14/2024 12:21 PM CDT): Doing well without angina. She did have a single short lived episode months ago without recurrence. Low threshold for repeating stress test, but she would like to defer for now. The patient is aware of the need for Primary prevention through aggressive CV risk factor modifications to include: blood pressure control, LDL control, and daily exercise (per guidelines), etc. Assessment & Plan (12/09/2022 10:19 AM ELECTRONICS ENGINEERING TECHNICIAN): Although she has coronary calcification, indicating coronary atherosclerosis, she is not had any symptomatic disease. She remains active without angina. The patient is aware of the need for Primary prevention through aggressive CV risk factor modifications to include: blood pressure control, LDL control and daily exercise (per guidelines), etc. Hyperlipidemia LDL goal <70 2020 Assessment & Plan (03/19/2025 11:39 AM CDT): The LDL is well controlled on current pharmacotherapy which will be continued. Assessment & Plan (01/14/2024 12:20 PM CDT): The LDL is borderline controlled on current pharmacotherapy which will be continued. Will recheck FLP in 6 mos, may need to switch to Crestor or PCSK9 inhibitor. Assessment & Plan (12/09/2022 10:19 AM ELECTRONICS ENGINEERING TECHNICIAN): Unfortunately, she can muscle cramps on high-dose Lipitor but they have resolved with lower dose Lipitor with the addition of Zetia. Her last LDL was at or near goal so she will continue current medications. Atypical chest pain 2020 Pain of left arm 2020 Sebaceous cyst 12/02/2016 Melanocytic nevus of trunk 12/01/2016 [place] 12/01/2016 Family history of aneurysm 12/20/2012 Overview (01/15/2017): Family history of aneurysm Assessment & Plan (03/19/2025 11:38 AM CDT): No Sx at present. Will check abdominal USN to R/O AAA. Assessment & Plan (01/14/2024 12:19 PM CDT): No Sx at present. Assessment & Plan (12/09/2022 10:18 AM ELECTRONICS ENGINEERING TECHNICIAN): No symptoms of vascular aneurysm. Prior screening unremarkable. Hyperlipidemia 12/02/2012 Overview (01/15/2017): HYPERLIPIDEMIA NEC/NOS Encounters Date Type Department Care Team Description 03/26/2025 8:20 AM CDT - 03/26/2025 11:59 PM CDT Hospital Encounter [facility] - Imaging [address] [place] [id number] Family history of aneurysm Discharge Disposition: Discharge to home or self care 03/26/2025 Telephone [facility] [address] [place] [address] Stephan Bai MD Heart Concern 03/19/2025 11:00 AM CDT Office Visit [facility] [address] [place] [address] Stephan Bai MD Coronary artery calcification seen on CT scan (Primary Dx); Hyperlipidemia LDL goal <70; Family history of aneurysm 01/16/2025 Results Follow-Up [facility] Cardiology [address] [place] [address] Annabelle Jaramillo RN Lipid panel, AST 01/01/2025 Orders Only [facility] Cardiology [address] [place] [address] Stephan Bai MD from Last 3 Months Surgical History Surgery Date Site/Laterality Comments APPENDECTOMY 10/11/1961 - 10/10/1962 TOTAL HIP ARTHROPLASTY 11/14/2019 Right JOINT REPLACEMENT 10/11/2019 - 10/10/2020 Medical History Medical History Date Comments Hyperlipidemia Hyperlipidemia Osteoporosis Family History Medical History Relation Name Comments Early Daughter Dalia Stroke Daughter Dalia Brain Aneurysm Mother Aortic dissection Sister Terryl Heart disease Sister Terryl Relation Name Status Comments Daughter Dalia Father Mother Sister Terryl Social History Tobacco Use Types Packs/Day Years Used Date Smoking Tobacco: Former Cigarettes Q uit: 1987 Smokeless Tobacco: Never Comments:Smoking History Pac ks/day: 1 Packs Alcohol Use Standard Drinks/Week Comments Yes 0 (1 standard drink = 0.6 oz pur e alcohol) Comments Unknown Sex and Gender Information Value Date Recorded Sex Assigned at Not on file Legal Sex Female 2:47 AM ELECTRONICS ENGINEERING TECHNICIAN Gender Identity Female 06/09/2021 2:32 PM CDT Sexual Orientation Straight 06/09/2021 2: 32 PM CDT Obstetrics History Last Filed Vital Signs Vital Sign Reading Time Taken Comments Blood Pressure 118/78 03/19/2025 11:16 AM CDT Pulse 78 03/19/2025 11:16 AM CDT Temperature - - Respiratory Rate 16 06/10/2021 12:26 PM CDT Oxygen Saturation 96% 03/19/2025 11:16 AM CDT Inhaled Oxygen Concentration - - Weight 63.8 kg (140 lb 9.6 oz) 03/19/2025 11:16 AM CDT Height 160 cm (5' 3) 03/19/2025 11:16 AM CDT Body Mass Index 24.91 03/19/2025 11:16 AM CDT Plan of Treatment Health Maintenance Due Date Last Done Comments Depression Screening 1945 Fall Risk Assessment 1945 Hepatitis C Screening 1945 DTaP/Tdap/Td Vaccine (1 - Tdap) 1957 Hepatitis B Screening 1964 Zoster Vaccine (1 of 2) 1996 Well Visit 65+ 2011 Pneumococcal vaccine 65+ (2 of 2 - PPSV23) 07/31/2020 07/31/2019 Osteoporosis Screening-Bone Density Scan 05/07/2024 05/07/2022, 04/11/2021 Influenza Vaccine (Season Ended) 2025 Procedures Procedure Name Priority Date/Time Associated Diagnosis Comments US ABDOMINAL AORTIC ANEURYSM SCREENING Schedule Routine, Read Routine (OP Routine) 03/26/2025 8:37 AM CDT Family history of aneurysm AST Routine 03/12/2025 8:56 AM CDT Encounter for long-term (current) use of medications LIPID PANEL Routine 03/12/2025 8:56 AM CDT Hyperlipidemia, unspecified hyperlipidemia type AST Routine 01/01/2025 9:17 AM CDT LIPID PANEL Routine 01/01/2025 9:17 AM CDT from Last 3 Months Results * US Abdominal Aortic Aneurysm Screening [...] by: Andrew Velez M.D. Stephan Bai MD IM US PROCEDURES Final Result * (ABNORMAL) AST (03/12/2025 8:56 AM CDT) Pathologist [facility] AST 39(H) 10 - 35 U/L [facility] Blood 03/12/2025 8:56 AM CDT 03/12/2025 8:57 AM CDT Narrative [facility] - 03/12/2025 5:06 PM CDT FASTING:YES FASTING: YES Stephan Bai MD LAB BLOOD ORDERABLES Fin al Result [facility] [address] [place] [address] * Lipid panel (03/12/2025 8:56 AM CDT) Cholesterol 143 <200 mg/dL [facility] HDL 75 > OR = 50 mg/dL [facility] Triglycerides 59 <150 mg/dL [facility] LDL 54 mg/dL (calc) [facility] Comment: Reference range: <100 Desirable range <100 mg/dL for primary prevention; <70 mg/dL for patients with CHD or diabetic patients with > or = 2 CHD risk factors. LDL-C is now calculated using the Chester-Sahni calculation, which is a validated novel method providing better accuracy than the Friedewald equation in the estimation of LDL-C. Chester SS et al. SERGIO. 2013;310(19): 7911-3288 (http://education.[employer]/faq/CHI343) Chol/HDL ratio 1.9 <5.0 (calc) [facility] Non-HDL, (LDL+VLDL) 68 <130 mg/dL (calc) [facility] Comment: For patients with diabetes plus 1 major ASCVD risk factor, treating to a non-HDL-C goal of <100 mg/dL (LDL-C of <70 mg/dL) is considered a therapeutic option. Blood 03/12/2025 8:56 AM CDT 03/12/2025 8:57 AM CDT Narrative [facility] - 03/12/2025 5:06 PM CDT FASTING:YES FASTING: YES Stephan Bai MD LAB BLOOD ORDERABLES Fin al Result Performing Organization Address City/[facility]/ZIP Co de Phone Number [facility] [address] [place] [address] * (ABNORMAL) AST (01/01/2025 9:17 AM CDT) AST 38(H) 10 - 35 U/L [facility] 01/01/2025 9:17 AM CDT 01/01/2025 9:18 AM CDT Narrative [facility] - 01/02/2025 5:28 AM CDT FASTING:YES FASTING: YES Stephan Bai MD LAB BLOOD ORDERABLES Fin al Result [facility] [address] [place] [address] * Lipid panel (01/01/2025 9:17 AM CDT) Cholesterol 174 <200 mg/dL [facility] HDL 78 > OR = 50 mg/dL [facility] Triglycerides 66 <150 mg/dL [facility] LDL 81 mg/dL (calc) [facility] Comment: Reference range: <100 Desirable range <100 mg/dL for primary prevention; <70 mg/dL for patients with CHD or diabetic patients with > or = 2 CHD risk factors. LDL-C is now calculated using the Emeli calculation, which is a validated novel method providing better accuracy than the Friedewald equation in the estimation of LDL-C. Chester FIGUEROA et al. SERGIO. 2013;310(19): 9694-3444 (http://education.[employer]/faq/OOL402) Chol/HDL ratio 2.2 <5.0 (calc) [facility] Non-HDL, (LDL+VLDL) 96 <130 mg/dL (calc) [facility] Comment: For patients with diabetes plus 1 major ASCVD risk factor, treating to a non-HDL-C goal of <100 mg/dL (LDL-C of <70 mg/dL) is considered a therapeutic option. 01/01/2025 9:17 AM CDT 01/01/2025 9:18 AM CDT Narrative [facility] - 01/02/2025 5:28 AM CDT FASTING:YES FASTING: YES Stephan Bai MD LAB BLOOD ORDERABLES Fin al Result [facility] [address] [place] [address] from Last 3 Months Insurance [facility] MED[facility] ADVANTAGE [facility] MDCR HMO REF Care Teams Speed Belt Sander Tender Relationship Specialty Start Date End Date Nestor Estrella MD [address] [place] [address] PCP - General Family Medicine 06/18/21
--- OUTSIDE RECORDS SUMMARY | 2025-03-28 14:30 | XMS_ITS | Data Portability ---
Author Organization [facility], Main Office Address [address] [place] [address] Care Team Providers Care Panel Lay Up Worker Name Role Phone LAWRENCE LORENZ Primary Care Provider LAWRENCE LORENZ Referring Provider [phone] Assessment No assessment recorded. Plan of Treatment Reminders Order Date Submit Date Provider Last Modified By Organization Details Last Modified Time Details Appointments None record ed. Lab None record ed. Referral None record ed. Procedures None record ed. Surgeries None record ed. Imaging None record ed. Medication Orders None record ed. Patient TargetsNo targets recorded. Patient InstructionsNo instructions recorded. Reason for Referral None Reported. Results Created Date Observation Date Name Description Value Unit Range Abnormal Flag Note LastModifiedBy Organization Detail LastModifiedTime 12/08/19 22 12/09/2021 VITAM IN D,25- OH,TO TRA,I A vitamin D,25-oh,tota l,ia 103 NG/mL 30-100 high Vitam in D Statu s 25-OH Vitam in D: Defic iency : <20 ng/mL Insuf ficie ncy: 20 - 29 ng/mL Optim al: > or = 30 ng/mL For 25-OH Vitam in D testi ng on patie nts on D2-hinojosa pplem entat ion and patie nts for whom quant itati on of D2 and D3 fract ions is requi red, the Quest Assur eD(TM ) 25-OH VIT D, (D2,D 3), LC/MS /MS is recom chidi d: order code 95710 (radha ents >2yrs ). See Note 1 Note 1 For addit ional infor dc dozier refer to http: //edu catio n.Que stDia gnost ics.c om/fa q/FAQ 199 (This link is being provi ded for infor matio nal/ educa kendall l purpo ses only. ) Not Available [address], [address], 12/09/2021 10:40:01 12/08/19 22 12/09/2021 TSH TSH 3.05 mIU/L 0.40-4 .50 normal Not Available [address], [address], 12/09/2021 10:40:00 12/08/19 22 12/09/2021 T4, FREE T4, free 1.1 NG/dL 0.8-1. 8 normal Not Available [address], [address], 12/09/2021 10:39:59 12/08/19 22 12/09/2021 COMPR EHENS [place] METAB OLIC PANEL eGFR non-afr. faroese 64 mL/mi n/1.7 3m2 > or = 60 normal Not Available [address], [address], 12/09/2021 10:39:59 12/08/19 22 12/09/2021 COMPR EHENS [place] METAB OLIC PANEL glucose 93 mg/dL 65-99 normal Fasti ng refer ence inter ag Not Available [address], [address], 12/09/2021 10:39:59 12/08/19 22 12/09/2021 COMPR EHENS [place] METAB OLIC PANEL urea nitrogen (BUN) 14 mg/dL 7-25 normal Not Available [address], [address], 12/09/2021 10:39:59 12/08/19 22 12/09/2021 COMPR EHENS [place] METAB OLIC PANEL creatinine 0.88 mg/dL 0.60-0 .93 normal For patie nts >49 years of age, the refer ence limit for Creat inine is appro ximat jannette 13% highe r for peopl e ident ified as Afric an-Am marta n. Not Available [address] [address] [place], [address], 12/09/2021 10:39:59 12/08/19 22 12/09/2021 COMPR EHENS [place] METAB OLIC PANEL eGFR 74 mL/mi n/1.7 3m2 > or = 60 normal Not Available [facility] [address], [address], 12/09/2021 10:39:59 12/08/19 22 12/09/2021 COMPR EHENS [place] METAB OLIC PANEL BUN/creatini ne ratio not applic able (calc ) 6-22 Not Available [address], [address], 12/09/2021 10:39:59 12/08/19 22 12/09/2021 COMPR EHENS [place] METAB OLIC PANEL sodium 137 mmol/ L 135-14 6 normal Not Available [address], [address], 12/09/2021 10:39:59 12/08/19 22 12/09/2021 COMPR EHENS [place] METAB OLIC PANEL potassium 3.7 mmol/ L 3.5-5. 3 normal Not Available [address], [address], 12/09/2021 10:39:59 12/08/19 22 12/09/2021 COMPR EHENS [place] METAB OLIC PANEL chloride 100 mmol/ L 98-110 normal Not Available [address], [address], 12/09/2021 10:39:59 12/08/19 22 12/09/2021 COMPR EHENS [place] METAB OLIC PANEL carbon dioxide 25 mmol/ L 20-32 normal Not Available [address], [address], 12/09/2021 10:39:59 12/08/19 22 12/09/2021 COMPR EHENS [place] METAB OLIC PANEL calcium 10.4 mg/dL 8.6-10 .4 normal Not Available [address], [address], 12/09/2021 10:39:59 12/08/19 22 12/09/2021 COMPR EHENS [place] METAB OLIC PANEL protein, total 7.4 g/dL 6.1-8. 1 normal Not Available [address], [place], [address], 12/09/2021 10:39:59 12/08/19 22 12/09/2021 COMPR EHENS [place] METAB OLIC PANEL albumin 5.0 g/dL 3.6-5. 1 normal Not Available [address], [address], 12/09/2021 10:39:59 12/08/19 22 12/09/2021 COMPR EHENS [place] METAB OLIC PANEL globulin 2.4 g/dL_ (calc ) 1.9-3. 7 normal Not Available [address], [address], 12/09/2021 10:39:59 12/08/19 22 12/09/2021 COMPR EHENS [place] METAB OLIC PANEL albumin/glob ulin ratio 2.1 (calc ) 1.0-2. 5 normal Not Available [address], [address], 12/09/2021 10:39:59 12/08/19 22 12/09/2021 COMPR EHENS [place] METAB OLIC PANEL bilirubin, total 0.6 mg/dL 0.2-1. 2 normal Not Available [address], [place], [address], 12/09/2021 10:39:59 12/08/19 22 12/09/2021 COMPR EHENS [place] METAB OLIC PANEL alkaline phosphatase 67 U/L 37-153 normal Not Available [facility] [address] [address] [place], [address], 12/09/2021 10:39:59 12/08/19 22 12/09/2021 COMPR EHENS [place] METAB OLIC PANEL AST 35 U/L 10-35 normal Not Available [address], [address], 12/09/2021 10:39:59 12/08/19 22 12/09/2021 COMPR EHENS [place] METAB OLIC PANEL ALT 23 U/L 6-29 normal Not Available [address] [address] [place], [address], 12/09/2021 10:39:59 12/08/19 22 12/09/2021 PHOSP HATE ( PHOSP HORUS ) phosphate ( phosphorus) 3.5 mg/dL 2.1-4. 3 normal Not Available [address], [address], 12/09/2021 10:39:57 06/01/20 22 06/02/2022 VITAM IN D,25- OH,TO TRA,I A vitamin D,25-oh,tota l,ia 61 NG/mL 30-100 normal Vitam in D Statu s 25-OH Vitam in D: Defic iency : <20 ng/mL Insuf ficie ncy: 20 - 29 ng/mL Optim al: > or = 30 ng/mL For 25-OH Vitam in D testi ng on patie nts on D2-hinojosa pplem entat ion and patie nts for whom quant itati on of D2 and D3 fract ions is requi red, the Quest Assur eD(TM ) 25-OH VIT D, (D2,D 3), LC/MS /MS is recom chidi d: order code 59504 (radha ents >2yrs ). See Note 1 Note 1 For addit ional infor dc dozier refer to http: //nain conti ics.c om/fa q/FAQ 199 (This link is being provi ded for infor monique wilson/ rvai khan purpo ses only. ) Not Available [address], [address], 06/02/2022 05:44:35 06/01/20 22 06/02/2022 TSH TSH 2.87 mIU/L 0.40-4 .50 normal Not Available [address], [address], 06/02/2022 05:44:35 06/01/2006/02/2022 T4, FREE T4, free 1.0 NG/dL 0.8-1. 8 normal Not Available [address], [address], 06/02/2022 05:44:35 06/01/20 22 06/02/2022 COMPR EHENS [place] METAB OLIC PANEL creatinine 1.16 mg/dL 0.60-1 .00 high Not Available [address], [address], 06/02/2022 05:44:34 06/01/20 22 06/02/2022 COMPR EHENS [place] METAB OLIC PANEL glucose 71 mg/dL 65-99 normal Fasti ng refer ence inter ag Not Available [address], [address], 06/02/2022 05:44:34 06/01/20 22 06/02/2022 COMPR EHENS [place] METAB OLIC PANEL urea nitrogen (BUN) 15 mg/dL 7-25 normal Not Available [address], [address], 06/02/2022 05:44:34 06/01/20 22 06/02/2022 COMPR EHENS [place] METAB OLIC PANEL eGFR 49 mL/mi n/1.7 3m2 > or = 60 low The eGFR is based on the CKD-E PI 2020 equat ion. To calcu late the new eGFR from a previ ous Creat inine or Cysta tin C resul t, go to https ://rigoberto frank.angie kimbrough.kelvin gottlieb/abigail wesleyal s/ kdoqi /gfr% 5Fcal culat or Not Available [address] [place], [address], 06/02/2022 05:44:34 06/01/20 22 06/02/2022 COMPR EHENS [place] METAB OLIC PANEL BUN/creatini ne ratio 13 (calc ) 6-22 normal Not Available [address], [address], 06/02/2022 05:44:34 06/01/20 22 06/02/2022 COMPR EHENS [place] METAB OLIC PANEL sodium 139 mmol/ L 135-14 6 normal Not Available [address], [address], 06/02/2022 05:44:34 06/01/20 22 06/02/2022 COMPR EHENS [place] METAB OLIC PANEL potassium 4.1 mmol/ L 3.5-5. 3 normal Not Available [address], [address], 06/02/2022 05:44:34 06/01/20 22 06/02/2022 COMPR EHENS [place] METAB OLIC PANEL chloride 103 mmol/ L 98-110 normal Not Available [address], [address], 06/02/2022 05:44:34 06/01/20 22 06/02/2022 COMPR EHENS [place] METAB OLIC PANEL carbon dioxide 24 mmol/ L 20-32 normal Not Available [facility] [address] [address], [place], [address], 06/02/2022 05:44:34 06/01/20 22 06/02/2022 COMPR EHENS [place] METAB OLIC PANEL globulin 2.4 g/dL_ (calc ) 1.9-3. 7 normal Not Available [address], [address], 06/02/2022 05:44:34 06/01/20 22 06/02/2022 COMPR EHENS [place] METAB OLIC PANEL calcium 9.9 mg/dL 8.6-10 .4 normal Not Available [address], [address], 06/02/2022 05:44:34 06/01/20 22 06/02/2022 COMPR EHENS [place] METAB OLIC PANEL protein, total 7.2 g/dL 6.1-8. 1 normal Not Available [address], [address], 06/02/2022 05:44:34 06/01/20 22 06/02/2022 COMPR EHENS [place] METAB OLIC PANEL albumin 4.8 g/dL 3.6-5. 1 normal Not Available [address], [address], 06/02/2022 05:44:34 06/01/20 22 06/02/2022 COMPR EHENS [place] METAB OLIC PANEL albumin/glob ulin ratio 2.0 (calc ) 1.0-2. 5 normal Not Available [address], [address], 06/02/2022 05:44:34 06/01/20 22 06/02/2022 COMPR EHENS [place] METAB OLIC PANEL bilirubin, total 0.4 mg/dL 0.2-1. 2 normal Not Available [address], [address], 06/02/2022 05:44:34 06/01/20 22 06/02/2022 COMPR EHENS [place] METAB OLIC PANEL alkaline phosphatase 50 U/L 37-153 normal Not Available [facility] [address], [address], 06/02/2022 05:44:34 06/01/20 22 06/02/2022 COMPR EHENS [place] METAB OLIC PANEL AST 38 U/L 10-35 high Not Available [address], [address], 06/02/2022 05:44:34 06/01/2006/02/2022 COMPR EHENS [place] METAB OLIC PANEL ALT 21 U/L 6-29 normal Not Available [address], [address], 06/02/2022 05:44:34 06/01/2006/02/2022 PTH, INTAC T AND CALCI UM parathyroid hormone, intact 45 pg/mL 16-77 normal Inter preti ve Guide Intac t PTH Calci um ----- ----- ----- --- ----- ----- ----- -- Anayeli l Parat hyroi d Anayeli l Anayeli l Hypop angelica yroid ism Low or Low Anayeli l Low Hyper parat hyroi dism Prima ry Anayeli l or High High Secon dasha High Anayeli l or Low Terti tarik High High Non-P angelica yroid Hyper calce garcía Low or Low Anayeli l High Not Available [employer] [address], [address], 06/02/2022 05:44:33 06/01/2006/02/2022 PTH, INTAC T AND CALCI UM calcium 9.9 mg/dL 8.6-10 .4 normal Not Available [employer] [address], [address], 06/02/2022 05:44:33 07/23/20 22 07/25/2022 CULTU RE, URINE , ROUTI NE culture, urine, routine see note abnormal CULTU RE, URINE , ROUTI NE Micro Numbe r: [id number] Test Statu s: Final Speci men Sourc e: Urine Speci men Quali ty: Adequ ate Resul t: 10,00 0-49, 000 CFU/m L of Esche fidel a coli COMME NT: Addit ional non-p redom inati ng organ ism(s ) isola osorio. These organ isms, commo nly found on exter nal and inter nal genit jose, are consi dered colon izers . No furth er testi ng perfo rmed. E.col i ----- ----- ----- - INT AMRITA AMOX/ CLAVU LANAT E S <=2 AMPIC ILLIN S 4 AMP/S ULBAC HULL S <=2 CEFAZ DAVID NR <=4 2 CEFEP MEGHA S <=1 CEFTA ZIDIM E S <=1 CEFTR IAXON E S <=1 CIPRO FLOXA DARRIAN S <=0.2 5 GENTA MICIN S <=1 IMIPE NEM S <=0.2 5 LEVOF LOXAC IN S <=0.1 2 NITRO FURAN TOIN S <=16 PIP/T AZOBA CTAM S <=4 TOBRA MYCIN S <=1 TRIME THOPR IM/HINOJOSA LFA S <=20 S=Sandi cepti ble I=Int ermed iate R=Res istan t * = Not Teste d NR = Not Repor osorio NN = See Thera py Comme nts THERA PY COMME NTS Note 1: For infec tions other than uncom plica osorio UTI cause d by E. coli, K. pneum oniae or P. mirab ilis: Cefaz david is resis tant if AMRITA > or = 8 mcg/m L. (Dist ingui shing susce ptibl e versu s inter media te for isola adriana with AMRITA < or = 4 mcg/m L requi res addit ional testi ng.) Note 2: For uncom plica osorio UTI cause d by E. coli, K. pneum oniae or P. mirab ilis: Cefaz david is susce ptibl e if AMRITA <32 mcg/m L and predi cts susce ptibl e to the oral agent s cefac luis manuel, cefdi grace, cefpo doxim e, cefpr ozil, cefur oxime , cepha lexin and lorac arbef . Not Available [address] [place], [address], 07/25/2022 08:47:59 07/23/2007/24/2022 REFLE XIVE URINE CULTU RE reflexive urine culture CULTU RE INDIC ATED - RESUL TS TO FOLLO W Not Available [address], [address], 07/24/2022 17:13:42 07/23/2007/24/2022 URINA LYSIS , COMPL ETE W/REF ISMA TO CULTU RE bilirubin negati ve negati ve normal Not Available [address] [address] [place], [address], 07/24/2022 17:13:41 07/23/2007/24/2022 URINA LYSIS , COMPL ETE W/REF ISAM TO CULTU RE color yellow yellow normal Not Available [address], [address], 07/24/2022 17:13:41 07/23/2007/24/2022 URINA LYSIS , COMPL ETE W/REF ISMA TO CULTU RE appearance clear clear normal Not Available [address] [address] [place], [address], 07/24/2022 17:13:41 07/23/2007/24/2022 URINA LYSIS , COMPL ETE W/REF ISMA TO CULTU RE specific gravity 1.003 1.001- 1.035 normal Not Available [address], [address], 07/24/2022 17:13:41 07/23/20 22 07/24/2022 URINA LYSIS , COMPL ETE W/REF ISMA TO CULTU RE pH 6.0 5.0-8. 0 normal Not Available [address], [address], 07/24/2022 17:13:41 07/23/2007/24/2022 URINA LYSIS , COMPL ETE W/REF ISMA TO CULTU RE glucose negati ve negati ve normal Not Available [address], [address], 07/24/2022 17:13:41 07/23/2007/24/2022 URINA LYSIS , COMPL ETE W/REF ISMA TO CULTU RE ketones negati ve negati ve normal Not Available [address], [address], 07/24/2022 17:13:41 07/23/2007/24/2022 URINA LYSIS , COMPL ETE W/REF ISMA TO CULTU RE occult blood 2+ negati ve abnormal Not Available [address], [address], 07/24/2022 17:13:41 07/23/2007/24/2022 URINA LYSIS , COMPL ETE W/REF ISMA TO CULTU RE protein negati ve negati ve normal Not Available [address], [address], 07/24/2022 17:13:41 07/23/2007/24/2022 URINA LYSIS , COMPL ETE W/REF ISMA TO CULTU RE nitrite negati ve negati ve normal Not Available [address], [address], 07/24/2022 17:13:41 07/23/2007/24/2022 URINA LYSIS , COMPL ETE W/REF ISMA TO CULTU RE leukocyte esterase 2+ negati ve abnormal Not Available [address], [address], 07/24/2022 17:13:41 07/23/2007/24/2022 URINA LYSIS , COMPL ETE W/REF ISMA TO CULTU RE WBC 10-20 /hpf < or = 5 abnormal Not Available [address], [address], 07/24/2022 17:13:41 07/23/2007/24/2022 URINA LYSIS , COMPL ETE W/REF ISMA TO CULTU RE RBC 0-2 /hpf < or = 2 normal Not Available [address], [address], 07/24/2022 17:13:41 07/23/2007/24/2022 URINA LYSIS , COMPL ETE W/REF ISMA TO CULTU RE squamous epithelial cells none seen /hpf < or = 5 normal Not Available [address], [address], 07/24/2022 17:13:41 07/23/2007/24/2022 URINA LYSIS , COMPL ETE W/REF ISMA TO CULTU RE bacteria none seen /hpf none seen normal Not Available [address], [address], 07/24/2022 17:13:41 07/23/2007/24/2022 URINA LYSIS , COMPL ETE W/REF ISMA TO CULTU RE hyaline cast none seen /lpf none seen normal Not Available [address], [address], 07/24/2022 17:13:41 04/05/20 23 04/06/2023 PTH, INTAC T AND CALCI UM parathyroid hormone, intact 62 pg/mL 16-77 normal Inter preti ve Guide Intac t PTH Calci um ----- ----- ----- --- ----- ----- ----- -- Anayeli l Parat hyroi d Anayeli l Anayeli l Hypop angelica yroid ism Low or Low Anayeli l Low Hyper parat hyroi dism Prima ry Anayeli l or High High Secon dasha High Anayeli l or Low Terti tarik High High Non-P angelica yroid Hyper calce garcía Low or Low Anayeli l High Not Available [address], [address], 04/06/2023 07:45:43 04/05/20 23 04/06/2023 PTH, INTAC T AND CALCI UM calcium 9.5 mg/dL 8.6-10 .4 normal Not Available [address], [address], 04/06/2023 07:45:43 04/05/20 23 04/06/2023 COMPR EHENS [place] METAB OLIC PANEL glucose 90 mg/dL 65-99 normal Fasti ng refer ence inter ag Not Available [address], [address], 04/06/2023 07:45:44 04/05/20 23 04/06/2023 COMPR EHENS [place] METAB OLIC PANEL urea nitrogen (BUN) 16 mg/dL 7-25 normal Not Available [address], [address], 04/06/2023 07:45:44 04/05/20 23 04/06/2023 COMPR EHENS [place] METAB OLIC PANEL creatinine 0.89 mg/dL 0.60-1 .00 normal Not Available [address], [address], 04/06/2023 07:45:44 04/05/20 23 04/06/2023 COMPR EHENS [place] METAB OLIC PANEL eGFR 67 mL/mi n/1.7 3m2 > or = 60 normal The eGFR is based on the CKD-E PI 2020 equat ion. To calcu late the new eGFR from a previ ous Creat inine or Cysta vickie C resul t, go to https ://rigoberto kimbrough.kelvin gottlieb/abigail swain s/ kdoqi /gfr% 5Fcal culat or Not Available [address], [address], 04/06/2023 07:45:44 04/05/20 23 04/06/2023 COMPR EHENS [place] METAB OLIC PANEL BUN/creatini ne ratio NOT APPLIC ABLE (calc ) 6-22 Not Available [address], [address], 04/06/2023 07:45:44 04/05/20 23 04/06/2023 COMPR EHENS [place] METAB OLIC PANEL sodium 140 mmol/ L 135-14 6 normal Not Available [address] [address] [place], [address], 04/06/2023 07:45:44 04/05/20 23 04/06/2023 COMPR EHENS [place] METAB OLIC PANEL potassium 4.2 mmol/ L 3.5-5. 3 normal Not Available [address], [address], 04/06/2023 07:45:44 04/05/20 23 04/06/2023 COMPR EHENS [place] METAB OLIC PANEL chloride 107 mmol/ L 98-110 normal Not Available [address], [address], 04/06/2023 07:45:44 04/05/20 23 04/06/2023 COMPR EHENS [place] METAB OLIC PANEL carbon dioxide 26 mmol/ L 20-32 normal Not Available [address], [address], 04/06/2023 07:45:44 04/05/20 23 04/06/2023 COMPR EHENS [place] METAB OLIC PANEL calcium 9.5 mg/dL 8.6-10 .4 normal Not Available [address], [address], 04/06/2023 07:45:44 04/05/20 23 04/06/2023 COMPR EHENS [place] METAB OLIC PANEL protein, total 6.9 g/dL 6.1-8. 1 normal Not Available [address], [address], 04/06/2023 07:45:44 04/05/20 23 04/06/2023 COMPR EHENS [place] METAB OLIC PANEL albumin 4.5 g/dL 3.6-5. 1 normal Not Available [address], [address], 04/06/2023 07:45:44 04/05/20 23 04/06/2023 COMPR EHENS [place] METAB OLIC PANEL globulin 2.4 g/dL_ (calc ) 1.9-3. 7 normal Not Available [address], [address], 04/06/2023 07:45:44 04/05/20 23 04/06/2023 COMPR EHENS [place] METAB OLIC PANEL albumin/glob ulin ratio 1.9 (calc ) 1.0-2. 5 normal Not Available [address], [address], 04/06/2023 07:45:44 04/05/20 23 04/06/2023 COMPR EHENS [place] METAB OLIC PANEL bilirubin, total 0.5 mg/dL 0.2-1. 2 normal Not Available [address], [address], 04/06/2023 07:45:44 04/05/20 23 04/06/2023 COMPR EHENS [place] METAB OLIC PANEL alkaline phosphatase 47 U/L 37-153 normal Not Available [facility] [address] [address] [place], [address], 04/06/2023 07:45:44 04/05/20 23 04/06/2023 COMPR EHENS [place] METAB OLIC PANEL AST 34 U/L 10-35 normal Not Available [address], [address], 04/06/2023 07:45:44 04/05/20 23 04/06/2023 COMPR EHENS [place] METAB OLIC PANEL ALT 25 U/L 6-29 normal Not Available [address], [address], 04/06/2023 07:45:44 04/05/20 23 04/06/2023 T4, FREE T4, free 0.9 NG/dL 0.8-1. 8 normal Not Available [address], [address], 04/06/2023 07:45:44 04/05/20 23 04/06/2023 TSH TSH 2.24 mIU/L 0.40-4 .50 normal Not Available [address], [address], 04/06/2023 07:45:44 04/05/20 23 04/06/2023 VITAM IN D,25- OH,TO TRA,I A vitamin D,25-oh,tota l,ia 47 NG/mL 30-100 normal Vitam in D Statu s 25-OH Vitam in D: Defic iency : <20 ng/mL Insuf ficie ncy: 20 - 29 ng/mL Optim al: > or = 30 ng/mL For 25-OH Vitam in D testi ng on patie nts on D2-hinojosa pplem entat ion and patie nts for whom quant itati on of D2 and D3 fract ions is requi red, the Quest Assur eD(TM ) 25-OH VIT D, (D2,D 3), LC/MS /MS is recom chidi d: order code 42144 (radha ents >2yrs ). See Note 1 Note 1 For addit ional infor dc dozier refer to http: //nain Simmons stDia gnost ics.c om/fa q/FAQ 199 (This link is being provi ded for infor monique wilson/ educa kendall l purpo ses only. ) Not Available [facility] [address] [place], [address], 04/06/2023 07:45:45 04/11/20 21 04/10/2021 DEXA, axial skele ton No observ ation record ed. [id number] [facility] ([facility]) [address] [place] [address] [place] [address], [id number], 12/09/2022 06:09:49 07/08/20 21 07/08/2021 MAMMO , scree leila, digit al, bilat eral No observ ation record ed. [id number], [address], 12/09/2022 06:09:49 05/07/20 22 05/07/2022 bone densi ty No observ ation record ed. [id number] [facility] [address] [place], [address], 12/09/2022 06:09:49 05/07/20 22 05/07/2022 DEXA, axial skele ton [facility] [place] [address] [place] [address] [phone] Patien t Name: NURA LIEBERMAN Access ion #: [id number] Sex: F : 1945 10 Locati on: RAD Attend ing Physic itz: GEN COWAN Orderi ng Physic itz: GEN COWAN Exam Date: 022 8:10 AM Exam Name: XR DEXA-H IPS PELVIS SPINE Admitt ing Diagno sis(es ): RADIOL OGY REPORT - FINAL EXAM: XR DEXA-H IPS PELVIS SPINE HISTOR Y: AGE RELATE D OSTEOP OROSIS COMPAR YELENA: None. TECHNI QUE: TECHNI QUE: Dual energy x-ray of absorp tion examin ation of the left hip and lumbar spine in AP projec tion was perfor med. FINDIN GS: Lumbar Spine (L1-L4 ): The mean bone minera l densit y is 0.830 g/cm2 hydrox yapati te, correl ating with a T-scor e of -2.9. Left hip the mean bone minera l densit y is 0.777 g/cm2 calciu m hydrox yapati te, correl ating with a T-scor e of -1.8 Page 1 of 2 [facility] Patien t Name: NURA LIEBERMAN Access ion #: [id number] Sex: F : 1945 10 Exam Date: 8:10 AM Exam Name: XR DEXA-H IPS PELVIS SPINE Admitt ing Diagno sis(es ): IMPRES KIRA: 1. The patien t's lumbar spine T-scor e is consis tent with osteop orosis . 2. The patien t's left hip T-scor e is consis tent with osteop enia. Accord ing to the World Health Organi zation , T-scor e values greate r than -1.0 are normal , values betwee n -1.0 and -2.5 are catego rized as osteop enia, T-scor e of -2.5 or more are catego rized as osteop orosis . Create d and electr onical ly signed by: Aftab ch MD Signed Date: 8:28 AM (CT) Dictat ed by: Aftab ch MD DD: 8:28 AM (CT) DT: 8:28 AM (CT) Page 2 of 2 [id number] [facility] (Imaging) [address] [place], [address], 12/09/2022 06:09:49 Result Notes Documentation Provider Name and Address Organization Details Recorded Time Dexa, Axial Skeleton : [facility] [address] [place] [address] Patient Name: SARITA LIEBERMAN Sex: F : 1945 Location: [facility] Attending Physician: GEN COWAN Ordering Physician: GEN COWAN Exam Date: 05/07/2022 8:10 AM Exam Name: XR DEXA-HIPS PELVIS SPINE Admitting Diagnosis(es): RADIOLOGY REPORT - FINAL EXAM: XR DEXA-HIPS PELVIS SPINE HISTORY: AGE RELATED OSTEOPOROSIS COMPARISON: None. TECHNIQUE: TECHNIQUE: Dual energy x-ray of absorption examination of the left hip and lumbar spine in AP projection was performed. FINDINGS: Lumbar Spine (L1-L4): The mean bone mineral density is 0.830 g/cm2 hydroxyapatite, correlating with a T-score of -2.9. Left hip the mean bone mineral density is 0.777 g/cm2 calcium hydroxyapatite, correlating with a T-score of -1.8 Page 1 of 2 [facility] Patient Name: SARITA LIEBERMAN Sex: F : 1945 Exam Date: 05/07/2022 8:10 AM Exam Name: XR DEXA-HIPS PELVIS SPINE Admitting Diagnosis(es): IMPRESSION: 1. The patient's lumbar spine T-score is consistent with osteoporosis. 2. The patient's left hip T-score is consistent with osteopenia. According to the World Health Organization, T-score values greater than -1.0 are normal, values between -1.0 and -2.5 are categorized as osteopenia, T-score of -2.5 or more are categorized as osteoporosis. Created and electronically signed by: Aftab Hansen MD Signed Date: 05/07/2022 8:28 AM (CT) Dictated by: Aftab Hansen MD (CT) (CT) Page 2 of 2 Not Available [facility] 12/09/2022 06:09:51 Problems Name Problem SNOMED Code Status Onset Date Resolution Date Notes Provider Name and Address Organization Details Recorded Time Postmenopausa l osteoporosis [id number] Active 2021 Not Available [facility] 3 06:02:38 Dysuria 20352536 Active 2021 Not Available [facility] 3 06:02:38 Hyperlipidemi a 44237480 Active 2019 Not Available [facility] 3 06:02:38 Osteoporosis 10061106 Active 2019 Not Available [facility] 3 06:02:38 Problem Notes None recorded. Procedures Surgical History Date Name Laterality Status Provider Name and Address Organization Details Recorded Time 07/08/20 21 Most Recent Mammogram completed Not Available [facility] 12/09/2022 05:56:28 11/14/19 20 total replacement of hip completed Not Available [facility] 12/09/2022 05:56:33 06/08/20 18 Date of Last Pap Smear completed Not Available [facility] 12/09/2022 05:56:28 Appendectomy completed Not Available [facility] 12/09/2022 05:56:33 Imaging Results None recorded. Procedure Notes None recorded. Medical Equipment None Reported. Medications Name Sig Start Date Stop Date Status Note LastModified by Organization Details LastModified Time amoxicill in 500 mg capsule TK FOUR CS PO 1 HOUR B DAPP 04/24 completed Not Available Not Available Not Available atorvasta tin 40 mg tablet Take 1 tablet every day by oral route as directed for 100 days. active Not Available Not Available No t Available atorvasta tin 80 mg tablet 12/10 completed Not Available Not Available Not Available doxycycli ne hyclate 100 mg capsule active Not Available Not Available Not Available atorvasta tin 20 mg tablet 07/14 completed Not Available Not Available Not Available clindamyc in HCl 300 mg capsule TAKE 1 CAPSULE BY MOUTH EVERY 6 HOURS 07/23 completed Not Available Not Available Not Available ibuprofen 800 mg tablet 06/08 completed Not Available Not Available Not Available ofloxacin 0.3 % eye drops 04/24 completed Not Available Not Available Not Available alendrona te 70 mg tablet 12/13 completed Not Available Not Available Not Available lovastati n 40 mg tablet 06/26 completed Not Available Not Available Not Available ciproflox acin 250 mg tablet TK 1 T PO Q 12 H FOR 5 DAYS active Not Available Not Available No t Available ciproflox acin 500 mg tablet 06/26 completed Not Available Not Available Not Available sulfameth oxazole 800 mg-trimet hoprim 160 mg tablet TAKE 1 TABLET BY MOUTH EVERY 12 HOURS 07/23 completed Not Available Not Available Not Available tramadol 50 mg tablet TK 1 T PO Q 12 H PRN 06/26 completed Not Available Not Available Not Available ketorolac 0.5 % eye drops 04/24 completed Not Available Not Available Not Available amoxicill in 875 mg tablet TAKE 1 TABLET BY MOUTH TWICE DAILY UNTIL ALL TABS ARE TAKEN 07/14 completed Not Available Not Available Not Available prednisol one acetate 1 % eye drops,sandi pension 04/24 completed Not Available Not Available Not Available clindamyc in 1 % topical gel active Not Available Not Available Not Available dexametha sone 1 mg tablet Take 1 tablet as needed by oral route at bedtime for 1 day. active take dexa tablet at 10 pm night before 8 am cortisol level drawn Not Available Not Available Not Available benzonata te 100 mg capsule TK 1 C PO TID PRF COUGH 04/25 completed Not Available Not Available Not Available neomycin- polymyxin -dexameth 3.5 mg/mL-10, 000 unit/mL-0 .1% eye drops 06/08 completed Not Available Not Available Not Available buspirone 7.5 mg tablet TAKE 1 TABLET BY MOUTH TWICE A DAY 12/10 completed Not Available Not Available Not Available estradiol 0.5 mg tablet one tablet daily active Not Available Not Available No t Available ibuprofen 600 mg tablet active Not Available Not Available Not Available lovastati n 20 mg tablet 06/26 completed Not Available Not Available Not Available Vitamin D2 1,250 mcg (50,000 unit) capsule 06/26 completed Not Available Not Available Not Available celecoxib 100 mg capsule 04/25 completed Not Available Not Available Not Available fluticaso ne propionat e 50 mcg/actua tion nasal spray,sandi pension 04/25 completed Not Available Not Available Not Available amoxicill in 500 mg-potass ium clavulana te 125 mg tablet TAKE 1 TABLET BY MOUTH EVERY 12 HOURS BEFORE MEALS FOR 7 DAYS. 04/30 completed Not Available Not Available Not Available buspirone 15 mg tablet 12/10 completed Not Available Not Available Not Available oxycodone 5 mg tablet TAKE 1/2 TABLET PO Q 4HR PRN active Not Available Not Available No t Available ezetimibe 10 mg tablet Take 1 tablet every day by oral route as directed for 100 days. active Not Available Not Available No t Available DOK Plus 8.6 mg-50 mg tablet 12/13 completed Not Available Not Available Not Available Prempro 0.3 mg-1.5 mg tablet Take 1 tablet every day by oral route in the morning for 30 days. active Not Available Not Available No t Available nitrofura ntoin monohydra te/macroc rystals 100 mg capsule 04/30 completed Not Available Not Available Not Available chlorhexi dine gluconate 0.12 % mouthwash active Not Available Not Available No t Available hydrocodo ne 5 mg-acetam inophen 300 mg tablet active Not Available Not Available Not Available ProAir HFA 90 mcg/actua tion aerosol inhaler active Not Available Not Available Not Available tramadol ER 100 mg tablet,ex tended release 24 hr active Not Available Not Available Not Available Forteo 20 mcg/dose (560 mcg/2.24 mL) subcutane ous pen injector INJECT 20 MCG UNDER THE SKIN EVERY DAY IN THE MORNING FOR 90 DAYS 07/23 completed Not Available Not Available Not Available Prevnar 13 (PF) 0.5 mL intramusc ular syringe active Not Available Not Available Not Available Myrbetriq 25 mg tablet,ex tended release TAKE 1 TABLET BY MOUTH EVERY DAY 04/30 completed Not Available Not Available Not Available Eliquis 2.5 mg tablet 04/25 completed Not Available Not Available Not Available Tymlos 80 mcg/dose (3,120 mcg/1.56 mL) subcutane ous pen injector Inject 80 microgra ms every day by subcutan eous route in the evening for 30 days. 07/11 completed Not Available Not Available Not Available Vitals Date Recorded Body mass index (BMI) Body height Oxygen saturation Oxygen saturation in Arterial blood by Pulse oximetry Heart rate Body temperature Body weight Systolic blood pressure Diastolic blood pressure Provider Name and Address Organization Details Last Updated DateTime 2 24.4 kg/m2 160.02 cm 99 % 99 % 91 /min 97.7 [degF] 11789.7 5 g 120 mm[Hg] 80 mm[Hg] Not Available [facility] 3 05:57:14 Date Recorded Body mass index (BMI) Body height Oxygen saturation Oxygen saturation in Arterial blood by Pulse oximetry Heart rate Body temperature Body weight Systolic blood pressure Diastolic blood pressure Provider Name and Address Organization Details Last Updated DateTime 1 24.1 kg/m2 160.02 cm 94 % 94 % 83 /min 98.5 [degF] 05068.5 6 g 116 mm[Hg] 70 mm[Hg] Not Available [facility] 3 05:57:14 Date Recorded Body height Body mass index (BMI) Body weight Body temperature Heart rate Systolic blood pressure Diastolic blood pressure Provider Name and Address Organization Details Last Updated DateTime 3 160.02 cm 33 kg/m2 21699.6 2 g 97.8 [degF] 70 /min 100 mm[Hg] 67 mm[Hg] ANTHONY Reynaga [place] - [place] [employer] [facility] 3 11:09:03 Date Recorded Body mass index (BMI) Body height Body temperature Body weight Systolic blood pressure Diastolic blood pressure Provider Name and Address Organization Details Last Updated DateTime 1 24.1 kg/m2 160.02 cm 97.6 [degF] 49053.5 6 g 114 mm[Hg] 62 mm[Hg] Not Available [facility] 3 05:57:14 Date Recorded Body mass index (BMI) Body height Oxygen saturation Oxygen saturation in Arterial blood by Pulse oximetry Heart rate Body temperature Body weight Systolic blood pressure Diastolic blood pressure Provider Name and Address Organization Details Last Updated DateTime 2 24.8 kg/m2 160.02 cm 95 % 95 % 79 /min 97.6 [degF] 20656.2 1 g 105 mm[Hg] 78 mm[Hg] Not Available [facility] 3 05:57:14 Social History Question Answer Notes LastModified by [employer] Details LastModified Time Tobacco Smoking Status Former Smoker Not Available [facility] 12/09/2022 05:53:55 What Is Your Level Of Caffeine Consumption? Moderate [id number] Information not available 12/09/2022 In The 14 Days Before Symptom Onset, Have You Had Close Contact With A Laboratory-confirm ed COVID-19 While That Case Was Ill? No [id number] Information not available 12/09/2022 In The 14 Days Before Symptom Onset, Have You Had Close Contact With A Person Who Is Under Investigation For COVID-19 While That Person Was Ill? No [id number] Information not available 12/09/2022 Which Illicit Or Recreational Drugs Have You Used? None [id number] Information not available 12/09/2022 What Is Your Relationship Status? [id number] Information not available 12/09/2022 Do You Use Your Seat Belt Or Car Seat Routinely? Yes [id number] Information not available 12/09/2022 Have You Recently Traveled Abroad? No [id number] Information not available 12/09/2022 Sex: Female Functional Status Question Answer Note LastModified by [employer] Details LastModified Time Do you use any illicit or recreational drugs? No [id number] Information not available 12/09/2022 What is your level of alcohol consumption? Occasional [id number] Information not available 12/09/2022 What is your occupation? retired [id number] Information not available 12/09/2022 Do you or have you ever used e-cigarettes or vape? Never used electronic cigarettes [id number] Information not available 12/09/2022 What is your exercise level? Occasional [id number] Information not available 12/09/2022 Mental Status None recorded. Family History Relationship Description Onset Age of this Age Resolved Age Notes LastModified by Organization Details LastModified Time Mother Heart disease [id number] Not available 12/09/2022 05:56:34 Mother Aortic aneurysm [id number] Not available 12/09/2022 05:56:34 Sister Heart disease [id number] Not available 12/09/2022 05:56:34 Daughter Heart disease [id number] Not available 12/09/2022 05:56:34 Medical History Condition Response HIGH CHOLESTEROL / HYPERLIPIDEMIA Y OSTEOPOROSIS Y ARTHRITIS Y Gynecological History Statement/Question Response Abnormal Pap N Date of Last Pap Smear 06/08/2018 Current Control Method Menopause Age at Menarche 14 Most Recent Mammogram 07/08/2021 Obstetrics History GPAL:G 2 P 2 0 0 2 Type Value Full Term 2 Living 2 Total 2 Past Encounters Encounter ID Performer Location Encounter Start Date Encounter Closed Date Diagnosis/Indication Diagnosis SNOMED-CT Code Diagnosis ICD10 Code Diagnosis Note [id number] Gen Cowan MD [facility]_ DEFAULT_1 _1 , 04/24/2021 00:00:00 04/24/2021 10:59:41 [id number] [facility]_ DEFAULT_1 _1 , 07/14/2021 00:00:00 07/14/2021 11:45:00 [id number] Gen Cowan MD [facility]_ DEFAULT_1 _1 , 12/11/2021 00:00:00 12/11/2021 10:06:04 [id number] [facility] [address] [place] [address] 07/23/2022 00:00:00 07/23/2022 16:01:10 [id number] Gen Cowan MD [facility] [address] [place] [address] 05/03/2023 10:58:19 05/03/2023 11:39:07 Postmenopausal osteoporosis 024547207 M81.0 Patient bone density from 05/01 revealed marked improvemen t from her initial BMD- she completed full 2 year treatment with forteo and tolerated well. Her calcium/re nal and vitamin D levels in ideal range from March labwork. Continue on calcium 1200 mg daily along with vitamin D 3 800 IU daily along with collagen therapy for bones. She would like to hold off further pharmacoth erapy for now as prolia was recommende d at last visit- recommende d she repeat her bone density in summer 2023 to assess for stability and improvemen t of her scores and if any evidence of relapse to consider either prolia or evenity. Spent up to 16 minutes preparing to see the patient (eg, review of tests), obtaining and/or reviewing separately obtained history, performing a medically appropriat e examinatio n and evaluation , counseling and educating the patient, ordering medication s, tests, along with documentin g clinical informatio n in the electronic health record, independen tly interpreti ng results and communicat ing results to the patient. Patient can be followed by PCP - she/he is aware of my resignatio n and last day of July 23. If needed his/her PCP can refer patient to another endocrinol ogist in the area. All questions /concerns answered and refills necessary at visit today. Health Concerns Section Related Observation LastModified by Organization Detai ls LastModified Time None Recorded Concern Status LastModified by Organization Details LastModified Time None Recorded Advance Directives Directive None Recorded Payers Insurance Date Sequence Insurance Name Policy Number Policy Rick Covered Member ID Rick Member ID Guarantor Name 04/30/2023 1 [facility] (MEDICARE REPLACEMENT/A DVANTAGE - HMO) [id number] Sarita Lieberman [id number] Sarita Lieberman Notes Date Note Type Note Provider Name and Address Organization Details Recorded Time 05/03/2023 text/html 77 yo female com es in for follow up in management of postmenopausal osteoporosis. last seen in 08/01 at that time BMD showed improvement. She completed 2 year course of forteo/ended April 2022. 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 labs from 04/02:vit D 47 ng/mLTSH of 2.24 uIU/mlFT4 of 0.9 ng/dLglucose 90 mg/dLcr normalLFT normalcalcium 9.5 mg/dLPTH 62 pg/ML Gen Cowan MD [address] [facility], [facility] [address], [place], [address], [place] [facility] 05/03/2023 11:56:48 OBGyn Episode No OBEpisode recorded.
--- OUTSIDE RECORDS SUMMARY | 2025-03-28 14:30 | XMS_ITS | Continuity of Care Document ---
Author Organization [facility] Address [address] [place] [address] Phone Care Team Providers Care Filler In Name Role Phone Dale BROWN, Toy Unavailable Unavailable Procedures Procedure Date MRI OF NECK, SPINE W/O CONTRAST 022 Advance Directives Directive Yes / No Effective Date File Name No Information Encounters Encounter Description Practice Location Reason(s) For Visit Diagnoses Date Provider Providers Copied on Encounter [facility], [address], [place], [place], [id number], [place] tel:[phone] [facility] No Information Dale Yeager. [address] , [place], [place], [id number], [place]. tel:[phone] Referring Provider: Scotty Harmon DO, [address], [place], [address]. tel:[phone] Family History Family Member Type Diagnosis Age At Onset No Information Payers Payer name Insurance type Covered constitution party ID Authorjacka tikathleen(s) [facility] ADV[facility] PPO [id number] Social History Type Description Quantity Date Captured [...]
--- OUTSIDE RECORDS SUMMARY | 2025-03-28 14:30 | XMS_ITS | Encounter Summary ---
Author Organization [facility] Address [address] [place] [address] Care Team Providers Care Graduate Teaching Assistant Name Role Phone Nestor Estrella MD Primary Care Provider [phone] Reason for Visit * Reason Onset Date Comments Heart Concern 03/26/2025 Encounter Details Date Type Department Care Team (Late st Contact Info) Description 03/26/2025 Telephone [facility] Cardiology [address] [facility] [address], [place] [address] Stephan Bai MD [address] [facility] [address] [place] [address] Heart Concern Social History Tobacco Use Types Packs/Day Years Used Date Smoking Tobacco: Former Cigarettes Q uit: 1987 Smokeless Tobacco: Never Comments:Smoking History Pac ks/day: 1 Packs Alcohol Use Standard Drinks/Week Comments Yes 0 (1 standard drink = 0.6 oz pur e alcohol) Comments Unknown Sex and Gender Information Value Date Recorded Sex Assigned at Not on file Legal Sex Female 2:47 AM [employer] Gender Identity Female 06/09/2021 2:32 PM CDT Sexual Orientation Straight 06/09/2021 2: 32 PM CDT documented as of this encounter Miscellaneous Notes * Telephone Encounter - Maria Guadalupe Mayers - 03/26/2025 9:42 AM CDT Patient called in today concerned about her Test results from 2020 Echo. During her ECHO this am [facility] told her that in 2020 a 3.1 cm aneurysm. She wants to know if that was true. They also told her that she didn't have an aneurysm this time. Please advise on Echo results from 03/26/2025 echo. documented in this encounter Plan of Treatment Not on file documented as of this encounter Visit Diagnoses Not on filedocumented in this encounter Care Teams Graduate Teaching Assistant Relationship Specialty Start Date End Date Nestor Estrella MD [address] [address] PCP - General Family Medicine 06/18/21 documented as of this encounter
--- OUTSIDE RECORDS SUMMARY | 2025-03-28 14:30 | XMS_ITS | Referral Summary ---
Author Organization [facility] D Address [address] [place] [address] Care Team Providers Care Interior Assemblies Developer Prover Name Role Phone Nestor Estrella MD Primary Care Provider [phone] Encounters Date Type Department Care Team Description 03/26/2025 Telephone [facility] [address] [address] Stephan Bai MD Heart Concern 03/26/2025 8:20 AM CDT - 03/26/2025 11:59 PM CDT Hospital Encounter [facility] - Imaging [address] [place] [address] Family history of aneurysm Discharge Disposition: Discharge to home or self care 03/19/2025 11:00 AM CDT Office Visit [facility] Cardiology [address] [facility] [address], [place] [address] Stephan Bai MD Coronary artery calcification seen on CT scan (Primary Dx); Hyperlipidemia LDL goal <70; Family history of aneurysm 01/16/2025 Results Follow-Up [facility] Cardiology [address] [place] [address] [address], [place] [address] Annabelle Jaramillo RN Lipid panel, AST 01/01/2025 Orders Only [facility] Cardiology [address] [facility] [address] [place] [address] Stephan Bai MD from Last 3 Months Allergies No known active allergies Medications calcium [...] Q10) 100 mg tablet 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 Assessment & Plan (12/09/2022 10:19 AM SOCIETY REPORTER): Although she has coronary calcification, indicating coronary [...] inhibitor. Assessment & Plan (12/09/2022 10:19 AM SOCIETY REPORTER): Unfortunately, she can muscle cramps on high-dose Lipitor but they have resolved with lower dose Lipitor with the addition of Zetia. Her last LDL was at or near goal so she will continue current medications. Atypical chest pain 2020 Pain of left arm 2020 Sebaceous cyst 12/02/2016 Melanocytic nevus of trunk 12/01/2016 Merkel 12/01/2016 Family history of aneurysm 12/20/2012 Overview (01/15/2017): Family history of aneurysm Assessment & Plan (03/19/2025 11:38 AM CDT): No Sx at present. Will check abdominal USN to R/O AAA. Assessment & Plan (01/14/2024 12:19 PM CDT): No Sx at present. Assessment & Plan (12/09/2022 10:18 AM SOCIETY REPORTER): No symptoms of vascular aneurysm. Prior screening unremarkable. Hyperlipidemia 12/02/2012 Overview (01/15/2017): HYPERLIPIDEMIA NEC/NOS Social History Tobacco Use Types Packs/Day Years Used Date Smoking Tobacco: Former Cigarettes Q uit: 1987 Smokeless Tobacco: Never Comments:Smoking History Pac ks/day: 1 Packs Alcohol Use Standard Drinks/Week Comments Yes 0 (1 standard drink = 0.6 oz pur e alcohol) Comments Unknown Sex and Gender Information Value Date Recorded Sex Assigned at Not on file Legal Sex Female 2:47 AM SOCIETY REPORTER Gender Identity Female 06/09/2021 2:32 PM CDT Sexual Orientation Straight 06/09/2021 2: 32 PM CDT Last Filed Vital Signs Vital Sign Reading [...] 03/19/2025 11:16 AM CDT Plan of Treatment Not on file Procedures Procedure Name Priority Date/Time Associated Diagnosis [...] by: Andrew Velez M.D. Stephan Bai MD [facility] US PROCEDURES Final Result * (ABNORMAL) AST (03/12/2025 8:56 AM CDT) AST 39(H) 10 - 35 U/L [facility] Blood 03/12/2025 8:56 AM CDT 03/12/2025 8:57 AM CDT Narrative [facility] - 03/12/2025 5:06 PM CDT FASTING:YES FASTING: YES Stephan Bai MD LAB BLOOD ORDERABLES Fin al Result Performing Organization Address [facility] Co de Phone Number [facility] [address] [place] [address] * Lipid panel (03/12/2025 8:56 AM CDT) [facility] Cholesterol 143 <200 mg/dL [facility] HDL 75 > OR = 50 mg/dL [facility] Triglycerides 59 <150 mg/dL [facility] LDL 54 mg/dL (calc) [facility] Comment: Reference range: <100 Desirable range <100 mg/dL for primary prevention; <70 mg/dL for patients with CHD or diabetic patients with > or = 2 CHD risk factors. LDL-C is now calculated using the Chester-Bora calculation, which is a validated novel method providing better accuracy than the Friedewald equation in the estimation of LDL-C. Chester SS et al. SERGIO. 2013;310(19): 1701-6920 (http://education.[employer]/faq/JFG132) Chol/HDL ratio 1.9 <5.0 (calc) [facility] Non-HDL, (LDL+VLDL) 68 <130 mg/dL (calc) [facility] Comment: For patients with diabetes plus 1 major ASCVD risk factor, treating to a non-HDL-C goal of <100 mg/dL (LDL-C of <70 mg/dL) is considered a therapeutic option. Blood 03/12/2025 8:56 AM CDT 03/12/2025 8:57 AM CDT Narrative [facility] - 03/12/2025 5:06 PM CDT FASTING:YES FASTING: YES Result [facility] Stephan Bai MD LAB BLOOD ORDERABLES Fin al Result Performing Organization Address [facility] Co de Phone Number [facility] [address] [place] [address] * (ABNORMAL) AST (01/01/2025 9:17 AM CDT) AST 38(H) 10 - 35 U/L [facility] 01/01/2025 9:17 AM CDT 01/01/2025 9:18 AM CDT Narrative [facility] - 01/02/2025 5:28 AM CDT FASTING:YES FASTING: YES us Stephan Bai MD LAB BLOOD ORDERABLES Fin al Result [facility] [address] [facility] [place] [address] * Lipid panel (01/01/2025 9:17 AM CDT) [...] factors. LDL-C is now calculated using the Chester-Bora calculation, which is a validated novel method providing better accuracy than the Friedewald equation in the estimation of LDL-C. Chester SS et al. SERGIO. 2013;310(19): 6440-9229 (http://education.[employer]/faq/DQL464) Chol/HDL ratio 2.2 <5.0 (calc) [facility] Non-HDL, (LDL+VLDL) 96 <130 mg/dL (calc) [facility] Comment: For patients with diabetes plus 1 major ASCVD risk factor, treating to a non-HDL-C goal of <100 mg/dL (LDL-C of <70 mg/dL) is considered a therapeutic option. 01/01/2025 9:17 AM CDT 01/01/2025 9:18 AM CDT Narrative [facility] - 01/02/2025 5:28 AM CDT FASTING:YES FASTING: YES Stephan Bai MD LAB BLOOD ORDERABLES Fin al Result [facility] [address] [place] [address] from Last 3 Months Insurance Member Subscriber Plan / Payer (Ef fective 2022-Present) Name:Sarita Lieberman Relation to Subscriber:Self Name:Sarita Lieberman Payer ID:[id number] (NAIC) Type:[facility] MED[facility] Address: [place] [id number] [place] [id number] MDCR HMO REF [facility] MEDICARE ADVANTAGE Care Teams Interior Assemblies Developer Prover Relationship Specialty Start Date End Date Nestor Estrella MD [address] [id number] PCP - General Family Medicine 06/18/21
--- OUTSIDE RECORDS SUMMARY | 2025-03-28 14:30 | XMS_ITS | CONTINUITY OF CARE DOCUMENT ---
Author Name earl elliott Address Unknown Organization [facility] Address [address] [place] [address] Phone [phone] Care Team Providers Care Event Staff Member Name Role Phone earl elliott Unavailable Unavailable INSURANCE PROVIDERS Payer name Policy type / Coverage type Pyatt red republican ID BRAD [facility] [id number]
--- OUTSIDE RECORDS SUMMARY | 2025-03-28 14:30 | XMS_ITS | Continuity of Care Document ---
Author Organization [facility] Address [address] [place] [address] Phone Care Team Providers Care Flosser Name Role Phone Barrera OD, Yair Unavailable [...] Diagnoses Date Provider Providers Copied on Encounter [facility], [address] [place] [address] [address], [place], [place], [address], [place] tel:[phone] [facility] No Information 7-201 0 Barrera OD Yair. [address] [facility] [place] , [address], [place], [address], [place]. tel:[phone] [facility], [address] [place] [address] [address], [place], [place], [address], [place] tel:[phone] [facility] No Information 8-201 0 Barrera OD Yair. [address] [facility] [address] , [address], [place], [address], [place]. tel:[phone] [facility], [address], [place], [place], [address], [place] tel:[phone] [facility] [place] No Information Tera-0 2-201 0 Barrera OD Yair. [facility] , [address], [place], [address], [place]. tel:[phone] [facility], [address] [place] [address] [address], [place], [place], [address], tel:[phone] [facility] No Information May-2 6-201 0 Barrera OD Yair. [address] [facility] [address] , [address], [place], [place], [facility], [place]. tel:[phone] [facility], [address] [place] [address] [address], [place], [place], [address], tel:[phone] SEC [facility] No Information May-2 0-201 0 Barrera OD Yair. [facility] , [address], [place], [place], [facility], [place]. tel:[phone] [facility], [address] [place] [address] [address], [place], [place], [address], tel:[phone] [facility] No Information Dec-2 9-200 9 Barrera OD Yair. [address] [place], [place] [address]ate [address] , [address], [place], [address], . tel:[phone] Family History Family Member Type Diagnosis Age At Onset No Information Payers Payer name Insurance type Covered constitution party ID Authoriza tion(s) No Information Social History [...]
--- NOTE | 2025-03-28 15:28 | ED.FEMALEGU ---
HPI - Female Genitourinary General Chief complaint: Urogenital-Female <Radha Blancas PA-C - Last Filed: 03/28/25 16:06> Stated complaint: Poss kidney infect-flank pain <Radha Blancas PA-C - Last Filed: 03/28/25 16:06> Time Seen by Provider: 03/28/25 15:29 <Radha Blancas PA-C - Last Filed: 03/28/25 16:06> Focused HPI: Patient is a 79-year-old female who presents the ED with report of left flank pain/ UTI. Patient reports history of frequent UTI infections. She has a stand by order for amoxicillin that she takes whenever she develops urinary symptoms. She began having dysuria, cloudy urine approximately 1 week ago. She has been on amoxicillin for the past 1 week, but denies improvement. Began having pain in her L flank region over the past couple days. Also reports fever of 101F yesterday and today. Denies abdominal pain. Denies hematuria, N/V. GENERAL: Well-appearing, well-nourished, and in no acute distress. HEAD: Normocephalic, atraumatic. CHEST: Clear to auscultation. ?No respiratory distress. HEART: Regular rate and rhythm.? ABD: No significant tenderness. +L CVA tenderness NEURO: ?Alert and oriented x3. Patient screened in triage and initial orders placed.? ?Additional care and disposition to be based upon?diagnostic testing and treatment. <Radha Blancas PA-C - Last Filed: 03/28/25 16:06> Source: patient <Radha Blancas PA-C - Last Filed: 03/28/25 16:06> Mode of arrival: ambulatory <ANITHA Burnett Last Filed: 03/28/25 16:06> Limitations: no limitations <Radha Blancas PA-C - Last Filed: 03/28/25 16:06> History of Present Illness HPI Narrative: Agree with HPI <Rian Woodard MD - Last Filed: 03/28/25 18:37> Related Data Home medications: Home Medications ?Medication ?Instructions ?Recorded ?Confirmed ?Last Taken ?Type multivitamin 1 tablet PO DAILY 10/16/19 01/01/25 02/01/24 History omega-3 fatty acids-fish oil 300 1 cap PO DAILY 10/10/20 01/01/25 02/01/24 History mg-500 mg capsule (Fish Oil) atorvastatin 40 mg tablet 40 mg PO DAILY 11/06/21 01/01/25 02/01/24 History ezetimibe 10 mg tablet (Zetia) 10 mg PO DAILY 05/06/22 01/01/25 02/01/24 History cholecalciferol (vitamin D3) 25 25 mcg PO DAILY 11/15/23 01/01/25 02/01/24 History mcg (1,000 unit) capsule <Radha Blancas PA-C - Last Filed: 03/28/25 16:06> Allergies/Adverse reactions: Allergies Allergy/AdvReac Type Severity Reaction Status Date / Time No Known Allergies Allergy Unknown Verified 03/28/25 13:04 <Radha Blancas PA-C - Last Filed: 03/28/25 16:06> Review of Systems Review of Systems: All systems reviewed & are unremarkable except as noted in HPI and below <Rian Woodard MD - Last Filed: 03/28/25 18:37> Constitutional: Constitutional: Reports as per HPI <Rian Woodard MD - Last Filed: 03/28/25 18:37> ENT: Reports system reviewed and no additional complaints, except as documented <Rian Woodard MD - Last Filed: 03/28/25 18:37> Gastrointestinal: Gastrointestinal: Reports no additional gastrointestinal complaints <Rian Woodard MD - Last Filed: 03/28/25 18:37> Genitourinary: Genitourinary: Reports no additional female genitourinary complaints <Rian Woodard MD - Last Filed: 03/28/25 18:37> [facility] Past Medical History Medical History: Medical History Osteopenia Milia Bumps on skin Colon cancer screening Normal colonoscopy 02/04/2024 with no further testing needed. Elevated liver enzymes Dysuria UTI (urinary tract infection) Breast cancer screening by mammogram mammogram normal 09/18/2022. Normal mammogram 01/31/2024. Abscess (~05/24/22) infected sebaceous cyst right lower abdomen BMI 22.0-22.9, adult Elevated serum creatinine BMI 23.0-23.9, adult Family history of dissection of thoracic aorta sister of a dissecting thoracic aortic aneurysm. 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 Family history of cerebral aneurysm mother at age 57 of a cerebral aneurysm Chronic neck pain Anterolisthesis of cervical spine (~10/23/21) grade 2 anterolisthesis of C4 on C5, unstable with slippage on flexion and extension films on 10/23/2021 by chiropractor . Severe cervical spondylosis on CT of the cervical spine on 11/03/2021 B12 deficiency Anxiety Overactive bladder Encounter to establish care Eczema Hyperlipidemia Allergies Osteoporosis Hip pain Postherpetic neuralgia <ANITHA Burnett Last Filed: 03/28/25 16:06> Surgical History Surgical History: Surgical History History of hip replacement Right hip 11/14/2018 H/O tubal ligation 1977 History of appendectomy 1961 <ANITHA Burnett Last Filed: 03/28/25 16:06> Family History Family History: Family History Daughter Heart valve disorder Mother Brain aneurysm Heart disease Sibling Aortic dissection Heart disease <ANITHA Burnett Last Filed: 03/28/25 16:06> Social History Social History: Social History Smoking status: Never smoker Alcohol intake: current Drinks per week: 2 Alcohol use details: Pt drinks occasionally. Substance use: never Substance use type: does not use Living arrangements: with family <ANITHA Burnett Last Filed: 03/28/25 16:06> Exam Narrative: GENERAL: Well-appearing, well-nourished, and in no acute distress. HEAD: Normocephalic, atraumatic. ENT: Mucous membranes moist. CHEST: Clear to auscultation. No respiratory distress. HEART: Regular rate and rhythm. Normal peripheral pulses. ABDOMEN: Soft, nontender, nondistended, left CVA tenderness. EXTREMITIES: Normal range of motion. No edema. SKIN: Warm, dry, no rash. NEURO: Alert and oriented x3. PSYCH: Normal mood and affect. <Rian Woodard MD - Last Filed: 03/28/25 18:37> Course Course Emergency Course: Patient received IV ceftriaxone, 1 L fluid, and some Tylenol. Appropriate for discharge home and will treat with Bactrim DS. Also discussed large kidney that is felt to be related to infection. Should address this with her PCP/urologist. <Rian Woodard MD - Last Filed: 03/28/25 18:37> Vital Signs Vital signs: Vital Signs Temperature 98.2 F 03/28/25 13:16 Pulse Rate 113 H 03/28/25 13:16 Respiratory Rate 20 03/28/25 13:16 Blood Pressure 111/64 03/28/25 13:16 Pulse Oximetry 94 03/28/25 13:16 Oxygen Delivery Room Air 03/28/25 13:16 Temperature 100.1 F H 03/28/25 17:10 Pulse Rate 80 03/28/25 17:10 Respiratory Rate 16 03/28/25 17:10 Blood Pressure 130/70 03/28/25 17:10 Pulse Oximetry 96 03/28/25 17:10 Oxygen Delivery Room Air 03/28/25 17:10 <Radha Blancas PA-C - Last Filed: 03/28/25 16:06> Vital Signs Temperature 98.2 F 03/28/25 13:16 Pulse Rate 113 H 03/28/25 13:16 Respiratory Rate 20 03/28/25 13:16 Blood Pressure 111/64 03/28/25 13:16 Pulse Oximetry 94 03/28/25 13:16 Oxygen Delivery Room Air 03/28/25 13:16 Temperature 100.1 F H 03/28/25 17:10 Pulse Rate 80 03/28/25 17:10 Respiratory Rate 16 03/28/25 17:10 Blood Pressure 130/70 03/28/25 17:10 Pulse Oximetry 96 03/28/25 17:10 Oxygen Delivery Room Air 03/28/25 17:10 <Rian Woodard MD - Last Filed: 03/28/25 18:37> MDM - Female Genitourinary Lab Data Result diagrams: 03/28/25 17:15 03/28/25 17:15 <Radha Blancas PA-C - Last Filed: 03/28/25 16:06> Labs: Lab Results 03/28/25 03/28/25 Range/Units 14:04 17:15 WBC 14.7 H (4.5-10.0) K/mm3 RBC 4.33 (4.2-5.4) M/mm3 Hgb 13.5 (12.0-15.0) g/dL Hct 40.8 (37.0-47.0) % MCV 94.2 (80-100) fl MCH 31.2 (26-34) pg MCHC 33.1 (32-36) g/dl RDW 14.4 (11.5-14.5) % Plt Count 178 (150-375) k/mm3 MPV 10.1 (7.4-10.4) fl Immature Gran % (Auto) 0.6 H (0-0.5) % Neut % (Auto) 84.8 H (45.5-73.1) % Lymph % (Auto) 8.4 L (18.3-44.2) % Morgan % (Auto) 5.8 (2.6-8.5) % Eos % (Auto) 0.1 (0-4.4) % Baso % (Auto) 0.3 (0.2-1.2) % Lymph # (Auto) 1.24 (0.9-3.2) K/mm3 Morgan # (Auto) 0.9 H (0.1-0.6) K/mm3 Eos # (Auto) 0.0 (0-0.3) K/mm3 Baso # (Auto) 0.0 (0.0-0.1) K/mm3 Abs Immat Gran (auto) 0.09 H (0.00-0.031) K/mm3 Absolute Neuts (auto) 12.5 H (1.3-6.7) K/mm3 Absolute Nucleated RBC 0.000 (0.0-0.012) K/mm3 Nucleated RBC % 0.0 (0.0-0.2) % Sodium 135 L (137-145) mmol/L Potassium 3.5 (3.4-5.0) mmol/L Chloride 103 (98-107) mmol/L Carbon Dioxide 22 (22-30) mmol/L Anion Gap 10 (4-12) mmol/L BUN 21 H (7-17) mg/dL Creatinine 1.11 H (0.7-1.0) mg/dL Estim Creat Clear Calc 31 ml/min Estimated GFR 48 L (59 - ) Glucose 92 (65-110) mg/dL Lactic Acid 1.0 (0.7-2.0) mmol/L Calcium 9.5 (8.4-10.2) mg/dL Total Bilirubin 0.7 (0.2-1.3) mg/dL AST 72 H (14-36) U/L ALT 44 H (6-35) U/L Alkaline Phosphatase 66 (38-126) U/L Total Protein 7.8 (6.3-8.2) g/dL Albumin 4.4 (3.5-5.1) g/dL Urine Color Yellow (Yellow) Urine Appearance Turbid H (Clear) Urine pH 5.5 (5.0-9.0) Ur Specific [place] 1.019 (1.001-1.035) Urine Protein 2+ H (Negative) mg/dL Urine Glucose (UA) Negative (Negative) mg/dL Urine Ketones Trace H (Negative) mg/dL Ur Blood (Man) 2+ H (Negative) Urine Nitrate Positive H (Negative) Urine Bilirubin Negative (Negative) Urine Urobilinogen 0.2 (<2.0) mg/dL Leukocyte Esterase Rfl 3+ H (Negative) JORGE/UL Urine RBC 11-20 H (0-2) /hpf Urine WBC >100 H (0-3) /hpf Ur Squamous Epith Cells Few (Few) /hpf Urine Bacteria 4+ H /hpf Urine Casts 3-5 <Radha Blancas PA-C - Last Filed: 03/28/25 16:06> Lab Results 03/28/25 03/28/25 Range/Units 14:04 17:15 WBC 14.7 H (4.5-10.0) K/mm3 RBC 4.33 (4.2-5.4) M/mm3 Hgb 13.5 (12.0-15.0) g/dL Hct 40.8 (37.0-47.0) % MCV 94.2 (80-100) fl MCH 31.2 (26-34) pg MCHC 33.1 (32-36) g/dl RDW 14.4 (11.5-14.5) % Plt Count 178 (150-375) k/mm3 MPV 10.1 (7.4-10.4) fl Immature Gran % (Auto) 0.6 H (0-0.5) % Neut % (Auto) 84.8 H (45.5-73.1) % Lymph % (Auto) 8.4 L (18.3-44.2) % Morgan % (Auto) 5.8 (2.6-8.5) % Eos % (Auto) 0.1 (0-4.4) % Baso % (Auto) 0.3 (0.2-1.2) % Lymph # (Auto) 1.24 (0.9-3.2) K/mm3 Morgan # (Auto) 0.9 H (0.1-0.6) K/mm3 Eos # (Auto) 0.0 (0-0.3) K/mm3 Baso # (Auto) 0.0 (0.0-0.1) K/mm3 Abs Immat Gran (auto) 0.09 H (0.00-0.031) K/mm3 Absolute Neuts (auto) 12.5 H (1.3-6.7) K/mm3 Absolute Nucleated RBC 0.000 (0.0-0.012) K/mm3 Nucleated RBC % 0.0 (0.0-0.2) % Sodium 135 L (137-145) mmol/L Potassium 3.5 (3.4-5.0) mmol/L Chloride 103 (98-107) mmol/L Carbon Dioxide 22 (22-30) mmol/L Anion Gap 10 (4-12) mmol/L BUN 21 H (7-17) mg/dL Creatinine 1.11 H (0.7-1.0) mg/dL Estim Creat Clear Calc 31 ml/min Estimated GFR 48 L (59 - ) Glucose 92 (65-110) mg/dL Lactic Acid 1.0 (0.7-2.0) mmol/L Calcium 9.5 (8.4-10.2) mg/dL Total Bilirubin 0.7 (0.2-1.3) mg/dL AST 72 H (14-36) U/L ALT 44 H (6-35) U/L Alkaline Phosphatase 66 (38-126) U/L Total Protein 7.8 (6.3-8.2) g/dL Albumin 4.4 (3.5-5.1) g/dL Urine Color Yellow (Yellow) Urine Appearance Turbid H (Clear) Urine pH 5.5 (5.0-9.0) Ur Specific [place] 1.019 (1.001-1.035) Urine Protein 2+ H (Negative) mg/dL Urine Glucose (UA) Negative (Negative) mg/dL Urine Ketones Trace H (Negative) mg/dL Ur Blood (Man) 2+ H (Negative) Urine Nitrate Positive H (Negative) Urine Bilirubin Negative (Negative) Urine Urobilinogen 0.2 (<2.0) mg/dL Leukocyte Esterase Rfl 3+ H (Negative) JORGE/UL Urine RBC 11-20 H (0-2) /hpf Urine WBC >100 H (0-3) /hpf Ur Squamous Epith Cells Few (Few) /hpf Urine Bacteria 4+ H /hpf Urine Casts 3-5 <Rian Woodard MD - Last Filed: 03/28/25 18:37> Imaging Data Radiologist's impression: ITS Impressions Abdomen/Pelvis CT 03/28/25 16:21 IMPRESSION: Global enlargement of the left kidney with lower and midpole hydronephrosis. Limited evaluation beyond this characterization for which contrast enhanced imaging is suggested (if the patient is clinically able). <Rian Woodard MD - Last Filed: 03/28/25 18:37> Discharge Plan Discharge Clinical Impression: Pyelonephritis <ANITHA Burnett Last Filed: 03/28/25 16:06> Patient Disposition: Home <ANITHA Burnett Last Filed: 03/28/25 16:06> Condition: Stable <ANITHA Burnett Last Filed: 03/28/25 16:06> Instructions: Antibiotic Form, Kidney Infection (ED) <ANITAH Burnett Last Filed: 03/28/25 16:06> Additional Instructions: Follow-up with your the urologist or primary care doctor in 2 days to ensure that your urine culture has resulted in your being treated adequately. Return the ER if you have persistent fevers, you cannot keep down food/water/medication, or you have additional concerns. <ANITHA Burnett Last Filed: 03/28/25 16:06> Patient Language: Serbian <ANITHA Burnett Last Filed: 03/28/25 16:06> Prescriptions: New sulfamethoxazole-trimethoprim [Bactrim DS] 800-160 mg tablet 1 tablet PO Q12H Qty: 20 0RF ondansetron 4 mg tablet,disintegrating 4 mg PO Q6H PRN (Reason: nausea and vomiting) Qty: 10 0RF No Action Fish Oil 300-500 mg capsule 1 cap PO DAILY atorvastatin 40 mg tablet 40 mg PO DAILY ezetimibe [Zetia] 10 mg tablet 10 mg PO DAILY cholecalciferol (vitamin D3) 25 mcg (1,000 unit) capsule 25 mcg PO DAILY multivitamin Tablet 1 tablet PO DAILY <ANITHA Burnett Last Filed: 03/28/25 16:06> Follow-up/Referrals: Joyce Crawley NP [Primary Care Provider] - 2 Days <ANITHA Burnett Last Filed: 03/28/25 16:06>
[2025-03-28 15:40] VITALS: BP 115/61; PULSE 93; RESP 18; TEMP 37.1; O2SAT 96
[2025-03-28] MEDS: SODIUM CHLORIDE 0.9% IV 1,000 ML 999 ML IV CONT (17:05)
[2025-03-28 17:10] VITALS: BP 130/70; PULSE 80; RESP 16; TEMP 37.8; O2SAT 96
[2025-03-28] MEDS: ACETAMINOPHEN 325 MG TABLET 650 MG PO (17:18)
[2025-03-28 17:22] LABS: Basophils Percent Auto 0.3 % (0.2-1.2); Eosinophils Percent Auto 0.1 % (0-4.4); Hematocrit 40.8 % (37.0-47.0); Hemoglobin 13.5 g/dL (12.0-15.0); Immature Granulocyte Absolute 0.09 K/mm3 (0.00-0.031); Immature Granulocyte Percent A 0.6 % (0-0.5); Lymphocytes Absolute Auto 1.24 K/mm3 (0.9-3.2); Lymphocytes Percent Auto 8.4 % (18.3-44.2); Mean Corpuscular HGB Conc 33.1 g/dl (32-36); Mean Corpuscular Hemoglobin 31.2 pg (26-34); Mean Corpuscular Volume 94.2 fl (80-100); Mean Platelet Volume 10.1 fl (7.4-10.4); Monocytes Absolute Auto 0.9 K/mm3 (0.1-0.6); Monocytes Percent Auto 5.8 % (2.6-8.5); Neutrophils Absolute Auto 12.5 K/mm3 (1.3-6.7); Neutrophils Percent Auto 84.8 % (45.5-73.1); Platelet Count Result 178 k/mm3 (150-375); Red Blood Count 4.33 M/mm3 (4.2-5.4); Red Cell Distribution Width 14.4 % (11.5-14.5); White Blood Count 14.7 K/mm3 (4.5-10.0)
[2025-03-28 17:33] LABS: Alanine Aminotransferase 44 U/L (6-35); Albumin Level 4.4 g/dL (3.5-5.1); Alkaline Phosphatase 66 U/L (38-126); Anion Gap 10 mmol/L (4-12); Aspartate Amino Transferase 72 U/L (14-36); Bilirubin,Total 0.7 mg/dL (0.2-1.3); Blood Urea Nitrogen 21 mg/dL (7-17); Calcium 9.5 mg/dL (8.4-10.2); Carbon Dioxide 22 mmol/L (22-30); Chloride 103 mmol/L (98-107); Estimated CRCL calculation 31 ml/min; Estimated Glomerular Filt Rate 48; Glucose 92 mg/dL (65-110); Potassium 3.5 mmol/L (3.4-5.0); Sodium 135 mmol/L (137-145); Total Protein 7.8 g/dL (6.3-8.2)
--- OUTSIDE RECORDS SUMMARY | 2025-03-28 17:47 | XMS_ITS | Encounter Summary ---
Author Organization [facility] Healthcare Address [address] [place] [address] Care Team Providers Care Platemaker Name Role Phone Nestor Estrella MD Primary Care Provider [phone] Reason for Visit * Reason Onset Date Comments Heart Concern 03/26/2025 Encounter Details Date Type Department Care Team (Late st Contact Info) Description 03/26/2025 Telephone [facility] Cardiology [address] [facility] [address] [address] Stephan Bai MD [address] [facility] [address] [place] [address] Heart Concern Social History Tobacco [...] on file 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 During her ECHO this am [facility] the [facility] told her that in 2020 a 3.1 cm aneurysm. She wants to know if that was true. They also told her that she didn't have an aneurysm this time. Please advise on Echo results from 03/26/2025 echo. documented in this encounter Plan of Treatment Not on file documented as of this encounter Visit Diagnoses Not on filedocumented in this encounter Care Teams Platemaker Relationship Specialty Start Date End Date Nestor Estrella MD [address] [address] PCP - General Family Medicine 06/18/21 documented as of this encounter
--- OUTSIDE RECORDS SUMMARY | 2025-03-28 17:47 | XMS_ITS | Continuity of Care Document ---
Author Organization [facility] Address [address] [facility] [address] [place] [address] Phone Care Team Providers Care Sales Agent Food Vending Service Name Role Phone Barrera OD, Yair Unavailable [...] Diagnoses Date Provider Providers Copied on Encounter [facility], [address] [place] [address] [address], [place], [place], [address], [place] tel:[phone] [facility] No Information 7-201 0 Barrera OD Yair. [address] [facility] [place] , [address], [place], [address], [place]. tel:[phone] [facility], [address] [place] [address] [address], [place], [place], [address], [place] tel:[phone] [facility] No Information 8-201 0 Barrera OD Yair. [address] [facility] , [address], [place], [address], [place]. tel:[phone] [facility], [address], [place], [place], [address], [place] tel:[phone] [facility] [place] No Information Tera-0 2-201 0 Barrera OD Yair. [facility] , [address], [place], [address], [place]. tel:[phone] [facility], [address] [place] [address] [address], [place], [place], [address], tel:[phone] [facility] No Information May-2 6-201 0 Barrera OD Yair. [address] [facility] , [address], [place], [place], [facility], [place]. tel:[phone] [facility], [address] [place] [address] [address], [place], [place], [address], tel:[phone] [facility] No Information May-2 0-201 0 Barrera OD Yair. [facility] , [address], [place], [place], [facility], [place]. tel:[phone] [facility], [address] [place] [address] [address], [place], [place], [address], tel:[phone] [facility] No Information Dec-2 9-200 9 Barrera OD Yair. [address] [place], [place] [address] , [address], [place], [address], . tel:[phone] Family History Family Member Type Diagnosis Age At Onset No Information Payers Payer name Insurance type Covered libertarian ID Authoriza tion(s) No Information Social History [...]
--- OUTSIDE RECORDS SUMMARY | 2025-03-28 17:47 | XMS_ITS | Encounter Summary ---
Author Organization [facility] Healthcare Address [address] [place] [address] Care Team Providers Care Associate Professor Of Communication Name Role Phone Nestor Estrella MD Primary Care Provider [phone] Reason for Referral * Diagnostic Imaging (Routine) - Closed Specialty Diagnoses / Procedures Referred By Conttavon cali Referred To Contact Diagnoses Family history of aneurysm Procedures US Abdominal Aortic Aneurysm Screening Stephan Bai MD [address] [address] Phone: tel: fax: [facility] Referral ID Status Reason Start Date Expiration Date Visits Re quested Visits Authorized [id number] Closed 03/19/2025 04/18/2026 1 1 Reason for Visit * Diagnostic Imaging (Routine) - Closed Specialty Diagnoses / Procedures Referred By Alisha cali Referred To Contact Diagnoses Family history of aneurysm Procedures US Abdominal Aortic Aneurysm Screening Stephan Bai MD [address] [facility] [address] [address] Phone: tel: fax: [facility] Referral ID Status Reason Start Date Expiration Date Visits Re quested Visits Authorized [id number] Closed 03/19/2025 04/18/2026 1 1 Encounter Details Date Type Department Care Team (Latest Contact Info) Description 03/26/2025 8:20 AM CDT - 03/26/2025 11:59 PM CDT Hospital Encounter [facility] - Imaging [address] [place] [address] Family history of aneurysm Discharge [...] on file 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
--- OUTSIDE RECORDS SUMMARY | 2025-03-28 17:48 | XMS_ITS | Clinical Summary ---
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 Assessment & Plan (12/09/2022 10:19 AM AUTO CAMP ATTENDANT): Although she has coronary calcification, indicating coronary [...] inhibitor. Assessment & Plan (12/09/2022 10:19 AM AUTO CAMP ATTENDANT): Unfortunately, she can muscle cramps on high-dose Lipitor but they have resolved with lower dose Lipitor with the addition of Zetia. Her last LDL was at or near goal so she will continue current medications. Atypical chest pain 2020 Pain of left arm 2020 Sebaceous cyst 12/02/2016 Melanocytic nevus of trunk 12/01/2016 [place] 12/01/2016 Family history of aneurysm 12/20/2012 Overview (01/15/2017): Family history of aneurysm Assessment & Plan (03/19/2025 11:38 AM CDT): No Sx at present. Will check abdominal USN to R/O AAA. Assessment & Plan (01/14/2024 12:19 PM CDT): No Sx at present. Assessment & Plan (12/09/2022 10:18 AM AUTO CAMP ATTENDANT): No symptoms of vascular aneurysm. Prior screening unremarkable. Hyperlipidemia 12/02/2012 Overview (01/15/2017): HYPERLIPIDEMIA NEC/NOS Encounters Date Type Department Care Team Description 03/26/2025 8:20 AM CDT - 03/26/2025 11:59 PM CDT Hospital Encounter [facility] - Imaging [address] [place] [address] Family history of aneurysm Discharge Disposition: Discharge to home or self care 03/26/2025 Telephone [facility] Cardiology [address] [facility] [address] [place] [address] Stephan Bai MD Heart Concern 03/19/2025 11:00 AM CDT Office Visit [facility] Cardiology [address] [facility] [address] [place] [address] Stephan Bai MD Coronary artery calcification seen on CT scan (Primary Dx); Hyperlipidemia LDL goal <70; Family history of aneurysm 01/16/2025 Results Follow-Up [facility] Cardiology [address] [facility] [address] [place] [address] Annabelle Jaramillo RN Lipid panel, AST 01/01/2025 Orders Only [facility] Cardiology [address] [facility] [address] [place] [address] Stephan Bai MD from Last [...] on file Legal Sex Female 2:47 AM AUTO CAMP ATTENDANT Gender Identity Female 06/09/2021 2:32 PM CDT [...] (ABNORMAL) AST (03/12/2025 8:56 AM CDT) Pathologist [facility] AST 39(H) 10 - 35 U/L [facility] Blood 03/12/2025 8:56 AM CDT 03/12/2025 8:57 AM CDT Narrative [facility] - 03/12/2025 5:06 PM CDT FASTING:YES FASTING: YES Stephan Bai MD LAB BLOOD ORDERABLES Fin al Result [facility] [address] [place] [address] * Lipid panel (03/12/2025 8:56 AM CDT) Cholesterol 143 <200 mg/dL [facility] HDL 75 > OR = 50 mg/dL [facility] Triglycerides 59 <150 mg/dL [facility] LDL 54 mg/dL (calc) [facility] Comment: Reference range: <100 Desirable range <100 mg/dL for primary prevention; <70 mg/dL for patients with CHD or diabetic patients with > or = 2 CHD risk factors. LDL-C is now calculated using the Chester-Sahni calculation, which is a validated novel method providing better accuracy than the Friedewald equation in the estimation of LDL-C. Chester SS et al. SERGIO. 2013;310(19): 0646-6448 (http://education.Babil Games.Lotaris/faq/TBZ395) Chol/HDL ratio 1.9 <5.0 (calc) [facility] [...] ORDERABLES Fin al Result Performing Organization Address City/[facility]/ZIP Co de Phone Number [facility] [address] [place] [address] * (ABNORMAL) AST (01/01/2025 9:17 AM CDT) AST 38(H) 10 - 35 U/L [facility] 01/01/2025 9:17 AM CDT 01/01/2025 9:18 AM CDT Narrative [facility] - 01/02/2025 5:28 AM CDT FASTING:YES FASTING: YES Stephan Bai MD LAB BLOOD ORDERABLES Fin al Result [facility] [address] [place] [address] * Lipid panel (01/01/2025 9:17 AM CDT) [...] LDL-C. Chester FIGUEROA et al. SERGIO. 2013;310(19): 3559-9073 (http://education.Tioga Energy/faq/HAG261) Chol/HDL ratio 2.2 <5.0 (calc) [facility] Non-HDL, (LDL+VLDL) 96 <130 mg/dL (calc) [facility] Comment: For patients with diabetes plus 1 major ASCVD risk factor, treating to a non-HDL-C goal of <100 mg/dL (LDL-C of <70 mg/dL) is considered a therapeutic option. 01/01/2025 9:17 AM CDT 01/01/2025 9:18 AM CDT Narrative [facility] - 01/02/2025 5:28 AM CDT FASTING:YES FASTING: YES Stephan Bai MD LAB BLOOD ORDERABLES Fin al Result [facility] [address] [place] [address] from Last 3 Months Insurance [facility] MEDICARE ADVANTAGE [address] [facility] [id number] [facility] MEDICARE ADVANTAGE [facility] MDCR HMO REF Care Teams Emd Teacher Relationship Specialty Start Date End Date Nestor Estrella MD [address] [place] [address] PCP - General Family Medicine 06/18/21
--- OUTSIDE RECORDS SUMMARY | 2025-03-28 17:48 | XMS_ITS | Referral Summary ---
Author Organization [facility] Address [address] [place] [address] Care Team Providers Care Swimming Pool Plasterer Helper Name Role Phone Nestor Estrella MD Primary Care Provider [phone] Encounters Date Type Department Care Team Description 03/26/2025 Telephone [facility] Cardiology [facility] [address] Stephan Bai MD Heart Concern 03/26/2025 8:20 AM CDT - 03/26/2025 11:59 PM CDT Hospital Encounter [facility] - Imaging [address] [place] [address] Family history of aneurysm Discharge Disposition: Discharge to home or self care 03/19/2025 11:00 AM CDT Office Visit [facility] Cardiology [address] [facility] [address] [address] Stephan Bai MD Coronary artery calcification seen on CT scan (Primary Dx); Hyperlipidemia LDL goal <70; Family history of aneurysm 01/16/2025 Results Follow-Up [facility] Cardiology [address] [place] [address] [address] Annabelle Jaramillo RN Lipid panel, AST 01/01/2025 Orders Only [facility] Cardiology [address] [facility] [address] [place] [address] Stephan Bai MD from Last [...] Q10) 100 mg tablet 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 Assessment & Plan (12/09/2022 10:19 AM ANTI TANK MISSILEMAN): Although she has coronary calcification, indicating coronary [...] inhibitor. Assessment & Plan (12/09/2022 10:19 AM ANTI TANK MISSILEMAN): Unfortunately, she can muscle cramps on high-dose Lipitor but they have resolved with lower dose Lipitor with the addition of Zetia. Her last LDL was at or near goal so she will continue current medications. Atypical chest pain 2020 Pain of left arm 2020 Sebaceous cyst 12/02/2016 Melanocytic nevus of trunk 12/01/2016 [place] 12/01/2016 Family history of aneurysm 12/20/2012 Overview (01/15/2017): Family history of aneurysm Assessment & Plan (03/19/2025 11:38 AM CDT): No Sx at present. Will check abdominal USN to R/O AAA. Assessment & Plan (01/14/2024 12:19 PM CDT): No Sx at present. Assessment & Plan (12/09/2022 10:18 AM ANTI TANK MISSILEMAN): No symptoms of vascular aneurysm. Prior screening [...] on file Legal Sex Female 2:47 AM ANTI TANK MISSILEMAN Gender Identity Female 06/09/2021 2:32 PM CDT [...] by: Andrew Velez M.D. Stephan Bai MD [facility] US PROCEDURES Final Result * (ABNORMAL) AST (03/12/2025 8:56 AM CDT) AST 39(H) 10 - 35 U/L [facility] Blood 03/12/2025 8:56 AM CDT 03/12/2025 8:57 AM CDT Narrative [facility] - 03/12/2025 5:06 PM CDT FASTING:YES FASTING: YES Stephan Bai MD LAB BLOOD ORDERABLES Fin al Result Performing Organization Address [facility] Co de Phone Number [facility] [address] [place] [address] * Lipid panel (03/12/2025 8:56 AM CDT) [facility] Cholesterol 143 <200 mg/dL [facility] [place] HDL 75 > OR = 50 mg/dL [facility] [place] Triglycerides 59 <150 mg/dL [facility] vir[facility] Rivera LDL 54 mg/dL (calc) [facility] Comment: Reference range: <100 Desirable range <100 mg/dL for primary prevention; <70 mg/dL for patients with CHD or diabetic patients with > or = 2 CHD risk factors. LDL-C is now calculated using the Chester-Bora calculation, which is a validated novel method providing better accuracy than the Friedewald equation in the estimation of LDL-C. Chester SS et al. SERGIO. 2013;310(19): 3454-6811 (http://education.Mediamind/faq/AXN216) Chol/HDL ratio 1.9 <5.0 (calc) [facility] Non-HDL, (LDL+VLDL) 68 <130 mg/dL (calc) [facility] Comment: For patients with diabetes plus 1 major ASCVD risk factor, treating to a non-HDL-C goal of <100 mg/dL (LDL-C of <70 mg/dL) is considered a therapeutic option. Blood 03/12/2025 8:56 AM CDT 03/12/2025 8:57 AM CDT Narrative [facility] - 03/12/2025 5:06 PM CDT FASTING:YES FASTING: YES Result [facility] Stephan Bai MD LAB BLOOD ORDERABLES Fin al Result Performing Organization Address [facility] Co de Phone Number [facility] [address] [place] [address] * (ABNORMAL) AST (01/01/2025 9:17 AM CDT) AST 38(H) 10 - 35 U/L [facility] 01/01/2025 9:17 AM CDT 01/01/2025 9:18 AM CDT Narrative [facility] - 01/02/2025 5:28 AM CDT FASTING:YES FASTING: YES us Stephan Bai MD LAB BLOOD ORDERABLES Fin al Result [facility] [address] [facility] [place] [address] * Lipid panel (01/01/2025 9:17 AM CDT) [...] factors. LDL-C is now calculated using the Chester-oBra calculation, which is a validated novel method providing better accuracy than the Friedewald equation in the estimation of LDL-C. Chester SS et al. SERGIO. 2013;310(19): 0180-7590 (http://education.SpectraRep.Unbounce/faq/RWS378) Chol/HDL ratio 2.2 <5.0 (calc) [facility] [...] BLOOD ORDERABLES Fin al Result [facility] [address] [place] [address] from Last 3 Months Insurance [facility] MEDIC[facility] Address: [place] [id number] [facility] MEDIC[facility] Address: [facility] [address] [place] [id number] MDCR HMO REF [facility] MEDIC[facility] Address: [address] [address] [place] [address] [facility] MEDICARE ADVANTAGE [facility] MEDIC[facility] Address: [facility] [address] [place] [address] Care Teams Swimming Pool Plasterer Helper Relationship Specialty Start Date End Date Nestor Estrella MD [address] [address] PCP - General Family Medicine 06/18/21
--- OUTSIDE RECORDS SUMMARY | 2025-03-28 17:48 | XMS_ITS | Continuity of Care Document ---
Author Organization [facility] Address [address] [place] [address] Phone Care Team Providers Care Paper Core Machine Operator Name Role Phone Dale BROWN, Toy Unavailable Unavailable Procedures Procedure Date MRI OF NECK, SPINE W/O CONTRAST 022 Advance Directives Directive Yes / No Effective Date File Name No Information Encounters Encounter Description Practice Location Reason(s) For Visit Diagnoses Date Provider Providers Copied on Encounter [facility], [address], [place], [place], [id number], [place] tel:[phone] [facility] No Information Dale Yeager. [address] , [place], [place], [address], [place]. tel:[phone] Referring Provider: Scotty Harmon DO, [address], [place], [address]. tel:[phone] Family History Family Member Type Diagnosis Age At Onset No Information Payers Payer name Insurance type Covered libertarian ID Authorjacka tikathleen(s) [facility] ADVANTAGE PPO [id number] Social History Type Description Quantity Date Captured [...]
--- OUTSIDE RECORDS SUMMARY | 2025-03-28 17:48 | XMS_ITS | CONTINUITY OF CARE DOCUMENT ---
Author Name earl elliott Address Unknown Organization [facility] Address [address] [place] [address] Phone [phone] Care Team Providers Care Solar Energy System Installer Helper Name Role Phone earl elliott Unavailable Unavailable INSURANCE PROVIDERS Payer name Policy type / Coverage type [place] red democrat ID BRAD [facility] [id number] 1
[2025-03-28 18:00] VITALS: TEMP 37.5
[2025-03-28 19:10] VITALS: BP 112/82; PULSE 84; RESP 17; TEMP 37.2; O2SAT 97
== END 2025-03-28 19:12 | disposition home or self-care (01) ==
PROVIDERS: Physician Assistant; Emergency Provider Emergency Medicine; PCP Nurse Practitioner Family
DX: N10 Acute pyelonephritis (principal); E53.8 Deficiency of other specified B group vitamins; E78.5 Hyperlipidemia, unspecified; N32.81 Overactive bladder; M85.80 Other specified disorders of bone density and structure, unspecified site; M81.0 Age-related osteoporosis without current pathological fracture; F41.9 Anxiety disorder, unspecified; Z96.641 Presence of right artificial hip joint; Z79.899 Other long term (current) drug therapy; N13.30 Unspecified hydronephrosis
CPT/HCPCS: 36415; 74176; 80053; 81001; 83605; 85025; 87077; 87086; 87186; 96365; 99284; A9270; J0696; J7030

== ENCOUNTER 2025-04-30 08:29 | Outpatient (CLI) | payer MEDICARE, SELFPAY ==
--- NOTE | ~2025-04-30 | CT_ITS ---
EXAMINATION: CT abdomen pelvis wo/w con DATE: 04/30/2025 09:14 INDICATION: Left hydronephrosis TECHNIQUE: Computed tomography (CT) of the abdomen and pelvis was performed without and with 130 cc O mnipaque 350 intravenous contrast. The dose-length product was 860.15 mGy-cm. Automated exposure cont rol and iterative reconstruction technique were employed. COMPARISON: CT dated 03/28/2025. FINDINGS: There is a 4 mm left lower lobe nodule, unchanged, likely benign. Heart size normal. No sig nificant pleural or pericardial effusion.The liver, spleen, pancreas, adrenal glands and kidneys are unremarkable. Small fat-containing umbilical hernia. Nonobstructive bowel gas pattern. There is a rig ht total hip arthroplasty. Ureters are normal in course and caliber, although the mid and distal aspe ct of the left ureter is not well opacified with contrast. No ureteral stone identified. Nonobstructi ve bowel gas pattern. Gallbladder is present. Small low-density lesions in the left kidney are too sm all to characterize, although statistically likely cysts. There is a right total hip arthroplasty. No no acute bone or joint abnormality. IMPRESSION: 1. No acute abnormality of the abdomen or pelvis. No renal/ureteral stones or hydronephrosis identifi ed. 2: 4 mm pleural-based left lower lobe nodule stable, likely benign. Consider follow-up low dose CT c hest in 12 months. Reviewed, dictated and finalized at location B. IMPRESSION: 1. No acute abnormality of the abdomen or pelvis. No renal/ureteral stones or h ydronephrosis identified. 2: 4 mm pleural-based left lower lobe nodule stable, likely benign. Consider f ollow-up low dose CT chest in 12 months.
--- OUTSIDE RECORDS SUMMARY | 2025-04-30 08:32 | XMS_ITS | Referral Summary ---
Author Organization [facility] D Address [address] [place] [address] Care Team Providers Care Chipper Name Role Phone Nestor Estrella MD Primary Care Provider [phone] Encounters Date Type Department Care Team Description 03/26/2025 Telephone [facility] Medical [facility] Cardiology [address] [place] [id number] Stephan Bai MD Heart Concern 03/26/2025 8:20 AM CDT - 03/26/2025 11:59 PM CDT Hospital Encounter [facility] - Imaging [address] [place] [address] Family history of aneurysm Discharge Disposition: Discharge to home or self care 03/19/2025 11:00 AM CDT Office Visit [facility] Medical [facility] Cardiology [address] [place] [address] [address], [place] [address] Stephan Bai MD Coronary artery calcification seen on CT scan (Primary Dx); Hyperlipidemia LDL goal <70; Family history of aneurysm from Last 3 Months Allergies No known [...] Q10) 100 mg tablet Take by mouth community health advocate before 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 Assessment & Plan (12/09/2022 10:19 AM MARKETING CONSULTANT): Although she has coronary calcification, indicating coronary [...] inhibitor. Assessment & Plan (12/09/2022 10:19 AM MARKETING CONSULTANT): Unfortunately, she can muscle cramps on high-dose Lipitor but they have resolved with lower dose Lipitor with the addition of Zetia. Her last LDL was at or near goal so she will continue current medications. Atypical chest pain 2020 Pain of left arm 2020 Sebaceous cyst 12/02/2016 Melanocytic nevus of trunk 12/01/2016 [place] 12/01/2016 Family history of aneurysm 12/20/2012 Overview (01/15/2017): Family history of aneurysm Assessment & Plan (03/19/2025 11:38 AM CDT): No Sx at present. Will check abdominal USN to R/O AAA. Assessment & Plan (01/14/2024 12:19 PM CDT): No Sx at present. Assessment & Plan (12/09/2022 10:18 AM MARKETING CONSULTANT): No symptoms of vascular aneurysm. Prior screening unremarkable. Hyperlipidemia 12/02/2012 Overview (01/15/2017): HYPERLIPIDEMIA NEC/NOS Social History Tobacco Use Types Packs/Day Years Used Date Smoking Tobacco: Former Cigarettes Q uit: 1988 Smokeless Tobacco: Never Comments:Smoking History Pac ks/day: 1 Packs Alcohol Use Standard Drinks/Week Comments Yes 0 (1 standard drink = 0.6 oz pur e alcohol) Comments Unknown Sex and Gender Information Value Date Recorded Sex Assigned at Not on file Legal Sex Female 2:47 AM MARKETING CONSULTANT Gender Identity Female 06/09/2021 2:32 PM CDT [...] 8:56 AM CDT Hyperlipidemia, unspecified hyperlipidemia type from Last 3 Months Results * US [...] by: Andrew Velez M.D. Stephan Bai MD [facility] [place]ED[place] Final Result * (ABNORMAL) AST (03/12/2025 8:56 AM CDT) Pathologist [facility] AST 39(H) 10 - 35 U/L [facility] Blood 03/12/2025 8:56 AM CDT 03/12/2025 8:57 AM CDT Narrative [facility] - 03/12/2025 5:06 PM CDT FASTING:YES FASTING: YES Stephan Bai MD LAB BLOOD ORDERABLES Fin al Result [facility] [address] [place] [address] * Lipid panel (03/12/2025 8:56 AM CDT) Pathologist [facility] Cholesterol 143 <200 mg/dL [facility] HDL 75 > OR = 50 mg/dL Source [facility] Triglycerides 59 <150 mg/dL Source [facility] LDL 54 mg/dL (calc) [facility] Comment: Reference range: <100 Desirable range <100 mg/dL for primary prevention; <70 mg/dL for patients with CHD or diabetic patients with > or = 2 CHD risk factors. LDL-C is now calculated using the Emeli calculation, which is a validated novel method providing better accuracy than the Friedewald equation in the estimation of LDL-C. Chester SS et al. SERGIO. 2013;310(19): 9469-0847 (http://education.Ohlalapps/faq/BDY882) Chol/HDL ratio 1.9 <5.0 (calc) Source [facility] Non-HDL, (LDL+VLDL) 68 <130 mg/dL (calc) [facility] Comment: For patients with diabetes plus 1 major ASCVD risk factor, treating to a non-HDL-C goal of <100 mg/dL (LDL-C of <70 mg/dL) is considered a therapeutic option. Blood 03/12/2025 8:56 AM CDT 03/12/2025 8:57 AM CDT Narrative [facility] - 03/12/2025 5:06 PM CDT FASTING:YES FASTING: YES us Stephan Bai MD LAB BLOOD ORDERABLES Fin al Result [facility] [address] [place] [address] from Last 3 Months Insurance [facility] MEDICARE [employer] [facility] Address: [address] [address] [place] [address] [address] [place] [phone] [facility] MEDICARE [employer] [facility] Address: [address] [address] [place] [address] [facility] MEDICARE [employer] [facility] Address: [address] [address] [place] [address] Care Teams Chipper Relationship Specialty Start Date End Date Nestor Estrella MD [address] [address] PCP - General Family Medicine 06/18/21
--- OUTSIDE RECORDS SUMMARY | 2025-04-30 08:32 | XMS_ITS | Data Portability ---
Author Organization [facility] [employer], Main Office Address [address] [place] [address] Care Team Providers Care Aluminum Pourer Name Role Phone LAWRENCE LORENZ Primary Care Provider LAWRENCE LORENZ Referring Provider Assessment No assessment recorded. Plan of Treatment [...] /MS is recom chidi d: order code 36140 (radha ents >2yrs ). See Note 1 Note 1 For addit ional infor dc dozier refer to http: //edu juan Napolesia gnost ics.c om/fa q/FAQ 199 (This link is being provi ded for infor monique wilson/ ravi garciao ses only. ) Not Available [address], [address], 12/09/2021 10:40:01 12/08/19 22 12/09/2021 TSH TSH 3.05 mIU/L 0.40-4 .50 normal Not Available [address], [address], 12/09/2021 10:40:00 12/08/19 22 12/09/2021 T4, FREE T4, free 1.1 NG/dL 0.8-1. 8 normal Not Available [address], [address], 12/09/2021 10:39:59 12/08/19 22 12/09/2021 COMPR EHENS [place] METAB OLIC PANEL eGFR non-afr. greek 64 mL/mi n/1.7 3m2 > or = 60 normal Not Available [address], [address], 12/09/2021 10:39:59 12/08/19 22 12/09/2021 COMPR EHENS [place] METAB OLIC PANEL glucose 93 mg/dL 65-99 normal Fasti ng refer ence inter ag Not Available [address], [address], 12/09/2021 10:39:59 12/08/19 22 12/09/2021 COMPR EHENS [place] METAB OLIC PANEL urea nitrogen (BUN) 14 mg/dL 7-25 normal Not Available [address], [address], 12/09/2021 10:39:59 12/08/19 22 12/09/2021 COMPR EHENS [place] METAB OLIC PANEL creatinine 0.88 mg/dL 0.60-0 .93 normal For patie nts >49 years of age, the refer ence limit for Creat inine is appro ximat jannette 13% highe r for peopl e ident ified as Afric an-Am marta n. Not Available [address] [address] [place], [address], 12/09/2021 10:39:59 12/08/19 22 12/09/2021 COMPR EHENS [place] METAB OLIC PANEL eGFR 74 mL/mi n/1.7 3m2 > or = 60 normal Not Available [address], [address], 12/09/2021 10:39:59 12/08/19 22 12/09/2021 COMPR EHENS [place] METAB OLIC PANEL BUN/creatini ne ratio not applic able (calc ) 6-22 Not Available [address], [address], 12/09/2021 10:39:59 12/08/19 22 12/09/2021 COMPR EHENS [place] METAB OLIC PANEL sodium 137 mmol/ L 135-14 6 normal Not Available [address], [address], 12/09/2021 10:39:59 12/08/19 22 12/09/2021 COMPR EHENS [place] METAB OLIC PANEL potassium 3.7 mmol/ L 3.5-5. 3 normal Not Available [address], [address], 12/09/2021 10:39:59 12/08/19 22 12/09/2021 COMPR EHENS [place] METAB OLIC PANEL chloride 100 mmol/ L 98-110 normal Not Available [address] [place], [address], 12/09/2021 10:39:59 12/08/19 22 12/09/2021 COMPR EHENS [place] METAB OLIC PANEL carbon dioxide 25 mmol/ L 20-32 normal Not Available [address], [address], 12/09/2021 10:39:59 12/08/19 22 12/09/2021 COMPR EHENS [place] METAB OLIC PANEL calcium 10.4 mg/dL 8.6-10 .4 normal Not Available [address], [address], 12/09/2021 10:39:59 12/08/19 22 12/09/2021 COMPR EHENS [place] METAB OLIC PANEL protein, total 7.4 g/dL 6.1-8. 1 normal Not Available [address], [address], 12/09/2021 10:39:59 12/08/19 22 12/09/2021 COMPR EHENS [place] METAB OLIC PANEL albumin 5.0 g/dL 3.6-5. 1 normal Not Available [address], [address], 12/09/2021 10:39:59 12/08/19 22 12/09/2021 COMPR EHENS [place] METAB OLIC PANEL globulin 2.4 g/dL_ (calc ) 1.9-3. 7 normal Not Available [address], [address], 12/09/2021 10:39:59 12/08/19 22 12/09/2021 COMPR EHENS [place] METAB OLIC PANEL albumin/glob ulin ratio 2.1 (calc ) 1.0-2. 5 normal Not Available [address], [address], 12/09/2021 10:39:59 12/08/19 22 12/09/2021 COMPR EHENS [place] METAB OLIC PANEL bilirubin, total 0.6 mg/dL 0.2-1. 2 normal Not Available [address] [address] [place], [address], 12/09/2021 10:39:59 12/08/19 22 12/09/2021 COMPR EHENS [place] METAB OLIC PANEL alkaline phosphatase 67 U/L 37-153 normal Not Available [facility] [address] [address] [place], [address], 12/09/2021 10:39:59 12/08/19 22 12/09/2021 COMPR EHENS [place] METAB OLIC PANEL AST 35 U/L 10-35 normal Not Available [address], [address], 12/09/2021 10:39:59 12/08/19 22 12/09/2021 COMPR EHENS [place] METAB OLIC PANEL ALT 23 U/L 6-29 normal Not Available [address], [address], 12/09/2021 10:39:59 12/08/19 22 12/09/2021 PHOSP HATE ( PHOSP HORUS ) phosphate ( phosphorus) 3.5 mg/dL 2.1-4. 3 normal Not Available [address], [address], 12/09/2021 10:39:57 06/01/20 22 06/02/2022 VITAM IN [...] /MS is recom chidi d: order code 96216 (radha ents >2yrs ). See Note 1 Note 1 For addit ional infor dc dozier refer to http: //nain conti ics.c om/fa q/FAQ 199 (This link is being provi ded for infor monique wilson/ ravi khan purpo ses only. ) Not Available [address], [address], 06/02/2022 05:44:35 06/01/20 22 06/02/2022 TSH TSH 2.87 mIU/L 0.40-4 .50 normal Not Available [address], [address], 06/02/2022 05:44:35 06/01/2006/02/2022 T4, FREE T4, free 1.0 NG/dL 0.8-1. 8 normal Not Available [address], [address], 06/02/2022 05:44:35 06/01/20 22 06/02/2022 COMPR EHENS [place] METAB OLIC PANEL creatinine 1.16 mg/dL 0.60-1 .00 high Not Available [address], [address], 06/02/2022 05:44:34 06/01/20 22 06/02/2022 COMPR EHENS [place] METAB OLIC PANEL glucose 71 mg/dL 65-99 normal Fasti ng refer ence inter ag Not Available [address], [address], 06/02/2022 05:44:34 06/01/20 22 06/02/2022 COMPR EHENS [place] METAB OLIC PANEL urea nitrogen (BUN) 15 mg/dL 7-25 normal Not Available [address], [address], 06/02/2022 05:44:34 06/01/20 22 06/02/2022 COMPR EHENS [...] kdoqi /gfr% 5Fcal culat or Not Available [address], [address], 06/02/2022 05:44:34 06/01/20 22 06/02/2022 COMPR EHENS [place] METAB OLIC PANEL BUN/creatini ne ratio 13 (calc ) 6-22 normal Not Available [address], [address], 06/02/2022 05:44:34 06/01/20 22 06/02/2022 COMPR EHENS [place] METAB OLIC PANEL sodium 139 mmol/ L 135-14 6 normal Not Available [address], [address], 06/02/2022 05:44:34 06/01/20 22 06/02/2022 COMPR EHENS [place] METAB OLIC PANEL potassium 4.1 mmol/ L 3.5-5. 3 normal Not Available [address], [address], 06/02/2022 05:44:34 06/01/20 22 06/02/2022 COMPR EHENS [place] METAB OLIC PANEL chloride 103 mmol/ L 98-110 normal Not Available [address], [address], 06/02/2022 05:44:34 06/01/20 22 06/02/2022 COMPR EHENS [place] METAB OLIC PANEL carbon dioxide 24 mmol/ L 20-32 normal Not Available [address], [address], 06/02/2022 05:44:34 06/01/20 22 06/02/2022 COMPR EHENS [place] METAB OLIC PANEL globulin 2.4 g/dL_ (calc ) 1.9-3. 7 normal Not Available [address], [address], 06/02/2022 05:44:34 06/01/20 22 06/02/2022 COMPR EHENS [place] METAB OLIC PANEL calcium 9.9 mg/dL 8.6-10 .4 normal Not Available [address], [address], 06/02/2022 05:44:34 06/01/20 22 06/02/2022 COMPR EHENS [place] METAB OLIC PANEL protein, total 7.2 g/dL 6.1-8. 1 normal Not Available [address], [address], 06/02/2022 05:44:34 06/01/20 22 06/02/2022 COMPR EHENS [place] METAB OLIC PANEL albumin 4.8 g/dL 3.6-5. 1 normal Not Available [address], [address], 06/02/2022 05:44:34 06/01/20 22 06/02/2022 COMPR EHENS [place] METAB OLIC PANEL albumin/glob ulin ratio 2.0 (calc ) 1.0-2. 5 normal Not Available [address], [address], 06/02/2022 05:44:34 06/01/20 22 06/02/2022 COMPR EHENS [place] METAB OLIC PANEL bilirubin, total 0.4 mg/dL 0.2-1. 2 normal Not Available [address] [place], [address], 06/02/2022 05:44:34 06/01/20 22 06/02/2022 COMPR EHENS [place] METAB OLIC PANEL alkaline phosphatase 50 U/L 37-153 normal Not Available [facility] [address], [address], 06/02/2022 05:44:34 06/01/20 22 06/02/2022 COMPR EHENS [place] METAB OLIC PANEL AST 38 U/L 10-35 high Not Available [facility] [address], [address], 06/02/2022 05:44:34 06/01/20 22 06/02/2022 COMPR EHENS [place] METAB OLIC PANEL ALT 21 U/L 6-29 normal Not Available [address], [address], 06/02/2022 05:44:34 06/01/2006/02/2022 PTH, INTAC T AND [...] or Low Anayeli l High Not Available [facility] [address], [address], 06/02/2022 05:44:33 06/01/2006/02/2022 PTH, INTAC T AND CALCI UM calcium 9.9 mg/dL 8.6-10 .4 normal Not Available [facility] [address], [address], 06/02/2022 05:44:33 07/23/20 22 07/25/2022 CULTU RE, URINE , ROUTI NE culture, urine, routine see note abnormal CULTU RE, URINE , ROUTI NE Micro Numbe r: [id number] Test Statu s: Final Speci men [...] lexin and lorac arbef . Not Available [address], [address], 07/25/2022 08:47:59 07/23/2007/24/2022 REFLE XIVE URINE CULTU RE reflexive urine culture CULTU RE INDIC ATED - RESUL TS TO FOLLO W Not Available [address], [address], 07/24/2022 17:13:42 07/23/2007/24/2022 URINA LYSIS , COMPL ETE W/REF ISMA TO CULTU RE bilirubin negati ve negati ve normal Not Available [address] [address] [place], [address], 07/24/2022 17:13:41 07/23/2007/24/2022 URINA LYSIS , COMPL ETE W/REF ISMA TO CULTU RE color yellow yellow normal Not Available [address], [address], 07/24/2022 17:13:41 07/23/2007/24/2022 URINA LYSIS , COMPL ETE W/REF ISMA TO CULTU RE appearance clear clear normal Not Available [address], [address], 07/24/2022 17:13:41 07/23/2007/24/2022 URINA LYSIS , COMPL ETE W/REF ISMA TO CULTU RE specific gravity 1.003 1.001- 1.035 normal Not Available [address], [address], 07/24/2022 17:13:41 07/23/2007/24/2022 URINA LYSIS , COMPL ETE W/REF ISMA TO CULTU RE pH 6.0 5.0-8. 0 normal Not Available [address], [address], 07/24/2022 17:13:41 07/23/2007/24/2022 URINA LYSIS , COMPL ETE W/REF ISMA TO CULTU RE glucose negati ve negati ve normal Not Available [address], [address], 07/24/2022 17:13:41 07/23/2007/24/2022 URINA LYSIS , COMPL ETE W/REF ISMA TO CULTU RE ketones negati ve negati ve normal Not Available [address], [address], 07/24/2022 17:13:41 07/23/2007/24/2022 URINA LYSIS , COMPL ETE W/REF ISMA TO CULTU RE occult blood 2+ negati ve abnormal Not Available [address], [place], [address], 07/24/2022 17:13:41 07/23/2007/24/2022 URINA LYSIS , COMPL ETE W/REF ISMA TO CULTU RE protein negati ve negati ve normal Not Available [address], [address], 07/24/2022 17:13:41 07/23/2007/24/2022 URINA LYSIS , COMPL ETE W/REF ISMA TO CULTU RE nitrite negati ve negati ve normal Not Available [address] [address] [place], [address], 07/24/2022 17:13:41 07/23/2007/24/2022 URINA LYSIS , COMPL ETE W/REF ISMA TO CULTU RE leukocyte esterase 2+ negati ve abnormal Not Available [address], [address], 07/24/2022 17:13:41 07/23/2007/24/2022 URINA LYSIS , COMPL ETE W/REF ISMA TO CULTU RE WBC 10-20 /hpf < or = 5 abnormal Not Available [address], [address], 07/24/2022 17:13:41 07/23/2007/24/2022 URINA LYSIS , COMPL ETE W/REF ISMA TO CULTU RE RBC 0-2 /hpf < or = 2 normal Not Available [address], [address], 07/24/2022 17:13:41 07/23/2007/24/2022 URINA LYSIS , COMPL ETE W/REF ISMA TO CULTU RE squamous epithelial cells none seen /hpf < or = 5 normal Not Available [address], [address], 07/24/2022 17:13:41 07/23/2007/24/2022 URINA LYSIS , COMPL ETE W/REF ISMA TO CULTU RE bacteria none seen /hpf none seen normal Not Available [address], [address], 07/24/2022 17:13:41 07/23/2007/24/2022 URINA LYSIS , COMPL ETE W/REF ISMA TO CULTU RE hyaline cast none seen /lpf none seen normal Not Available [address], [address], 07/24/2022 17:13:41 04/05/20 23 04/06/2023 PTH, INTAC [...] or Low Anayeli l High Not Available [address], [address], 04/06/2023 07:45:43 04/05/20 23 04/06/2023 PTH, INTAC T AND CALCI UM calcium 9.5 mg/dL 8.6-10 .4 normal Not Available [address], [address], 04/06/2023 07:45:43 04/05/20 23 04/06/2023 COMPR EHENS [place] METAB OLIC PANEL glucose 90 mg/dL 65-99 normal Fasti ng refer ence inter ag Not Available [address], [address], 04/06/2023 07:45:44 04/05/20 23 04/06/2023 COMPR EHENS [place] METAB OLIC PANEL urea nitrogen (BUN) 16 mg/dL 7-25 normal Not Available [address], [address], 04/06/2023 07:45:44 04/05/20 23 04/06/2023 COMPR EHENS [place] METAB OLIC PANEL creatinine 0.89 mg/dL 0.60-1 .00 normal Not Available [facility] [address], [address], 04/06/2023 07:45:44 04/05/20 23 04/06/2023 COMPR EHENS [place] METAB OLIC PANEL eGFR 67 mL/mi n/1.7 3m2 > or = 60 normal The eGFR is based on the CKD-E PI 2020 equat ion. To calcu late the new eGFR from a previ ous Creat inine or Cysta vickie perez t, go to https ://rigoberto kimbrough.kelvin gottlieb/abigail swain s/ kdoqi /gfr% 5Fcal culat or Not Available [address] [address] [place], [address], 04/06/2023 07:45:44 04/05/20 23 04/06/2023 COMPR EHENS [place] METAB OLIC PANEL BUN/creatini ne ratio NOT APPLIC ABLE (calc ) 6-22 Not Available [address], [address], 04/06/2023 07:45:44 04/05/20 23 04/06/2023 COMPR EHENS [place] METAB OLIC PANEL sodium 140 mmol/ L 135-14 6 normal Not Available [address], [address], 04/06/2023 07:45:44 04/05/20 23 04/06/2023 COMPR EHENS [place] METAB OLIC PANEL potassium 4.2 mmol/ L 3.5-5. 3 normal Not Available [address] [address] [place], [address], 04/06/2023 07:45:44 04/05/20 23 04/06/2023 COMPR EHENS [place] METAB OLIC PANEL chloride 107 mmol/ L 98-110 normal Not Available [address], [address], 04/06/2023 07:45:44 04/05/20 23 04/06/2023 COMPR EHENS [place] METAB OLIC PANEL carbon dioxide 26 mmol/ L 20-32 normal Not Available [address] [address] [place], [address], 04/06/2023 07:45:44 04/05/20 23 04/06/2023 COMPR EHENS [place] METAB OLIC PANEL calcium 9.5 mg/dL 8.6-10 .4 normal Not Available [address], [address], 04/06/2023 07:45:44 04/05/20 23 04/06/2023 COMPR EHENS [place] METAB OLIC PANEL protein, total 6.9 g/dL 6.1-8. 1 normal Not Available [address], [address], 04/06/2023 07:45:44 04/05/20 23 04/06/2023 COMPR EHENS [place] METAB OLIC PANEL albumin 4.5 g/dL 3.6-5. 1 normal Not Available [address], [address], 04/06/2023 07:45:44 04/05/20 23 04/06/2023 COMPR EHENS [place] METAB OLIC PANEL globulin 2.4 g/dL_ (calc ) 1.9-3. 7 normal Not Available [address], [address], 04/06/2023 07:45:44 04/05/20 23 04/06/2023 COMPR EHENS [place] METAB OLIC PANEL albumin/glob ulin ratio 1.9 (calc ) 1.0-2. 5 normal Not Available [address], [address], 04/06/2023 07:45:44 04/05/20 23 04/06/2023 COMPR EHENS [place] METAB OLIC PANEL bilirubin, total 0.5 mg/dL 0.2-1. 2 normal Not Available [address], [address], 04/06/2023 07:45:44 04/05/20 23 04/06/2023 COMPR EHENS [place] METAB OLIC PANEL alkaline phosphatase 47 U/L 37-153 normal Not Available [facility] [address], [address], 04/06/2023 07:45:44 04/05/20 23 04/06/2023 COMPR EHENS [place] METAB OLIC PANEL AST 34 U/L 10-35 normal Not Available [address], [address], 04/06/2023 07:45:44 04/05/20 23 04/06/2023 COMPR EHENS [place] METAB OLIC PANEL ALT 25 U/L 6-29 normal Not Available [address], [address], 04/06/2023 07:45:44 04/05/20 23 04/06/2023 T4, FREE T4, free 0.9 NG/dL 0.8-1. 8 normal Not Available [address], [address], 04/06/2023 07:45:44 04/05/20 23 04/06/2023 TSH TSH 2.24 mIU/L 0.40-4 .50 normal Not Available [address], [address], 04/06/2023 07:45:44 04/05/2004/06/2023 VITAM IN D,25- OH,TO TRA,I A vitamin [...] /MS is recom chidi d: order code 87963 (radha ents >2yrs ). See Note 1 Note 1 For addit ional infor dc dozier refer to http: //nain Barnes gnost ics.c om/fa q/FAQ 199 (This link is being provi ded for infor monique wilson/ educmaciej khan purpo ses only. ) Not Available [facility] [address] [place], [address], 04/06/2023 07:45:45 04/11/20 21 04/10/2021 DEXA, axial skele ton No observ ation record ed. [id number] [facility] ([facility]) [address] [place] [address] [place] [address], [address], 12/09/2022 06:09:49 07/08/20 21 07/08/2021 MAMMO , scree leila, digit al, bilat eral No observ ation record ed. [id number] [address] [address], [place], [address], 12/09/2022 06:09:49 05/07/20 22 05/07/2022 bone densi ty No observ ation record ed. [id number] [facility] [address] [place], [address], 12/09/2022 06:09:49 05/07/20 22 05/07/2022 DEXA, axial skele ton [facility] [address] [place] [address] [phone] Patien t Name: NURA LIEBERMAN Access ion #: [id number] Sex: F : 1945 9 Locati on: RAD Attend ing Physic itz: GEN COWAN Orderi ng Physic itz: GEN COWAN Exam Date: 7/28/2 022 8:10 AM Exam Name: XR DEXA-H [...] e of -1.8 Page 1 of 2 [facility] Patien t Name: NURA LIEBERMAN Access ion #: [id number] Sex: F : 1945 9 Exam [...] 8:28 AM (CT) Page 2 of 2 [id number] [facility] (Imaging) [address] [place], [address], 12/09/2022 06:09:49 Result Notes Documentation Provider Name and Address Organization Details Recorded Time Dexa, Axial Skeleton : [facility] [address] [place] [address] Patient Name: SARITA LIEBERMAN Sex: F : 1945 Location: [facility] Attending Physician: GEN COWAN Ordering Physician: GEN [...] T-score of -1.8 Page 1 of 2 [facility] Patient Name: SARITA LIEBERMAN Sex: F : [...] (CT) Page 2 of 2 Not Available [facility] 12/09/2022 06:09:51 Problems Name Problem SNOMED Code Status Onset Date Resolution Date Notes Provider Name and Address Organization Details Recorded Time Hyperlipidemi a 31498135 Active 2019 Not Available [facility] 3 06:02:38 Osteoporosis 48932856 Active 2019 Not Available [facility] 3 06:02:38 Postmenopausa l osteoporosis 469045045 Active 2021 Not Available [facility] 3 06:02:38 Dysuria 52219358 Active 2021 Not Available [facility] 3 06:02:38 Problem Notes None recorded. Procedures Surgical History Date Name Laterality Status Provider Name and Address Organization Details Recorded Time 07/08/20 21 Most Recent Mammogram completed Not Available [facility] 12/09/2022 05:56:28 11/14/19 20 total replacement of hip completed Not Available [facility] 12/09/2022 05:56:33 06/08/20 18 Date of Last Pap Smear completed Not Available [facility] 12/09/2022 05:56:28 Appendectomy completed Not Available [facility] 12/09/2022 05:56:33 Imaging Results None recorded. Procedure [...] Heart rate Body temperature Body weight Systolic And Diastolic Provider Name and Address Organization Details Last Updated DateTime 2 24.4 kg/m2 160.02 cm 99 % 99 % 91 /min 97.7 [degF] 42107.7 5 g 120/80 mm[Hg] Not Available [facility] 3 05:57:14 Date Recorded Body mass index (BMI) Body height Oxygen saturation Oxygen saturation in Arterial blood by Pulse oximetry Heart rate Body temperature Body weight Systolic And Diastolic Provider Name and Address Organization Details Last Updated DateTime 1 24.1 kg/m2 160.02 cm 94 % 94 % 83 /min 98.5 [degF] 65399.5 6 g 116/70 mm[Hg] Not Available [facility] 3 05:57:14 Date Recorded Body height Body mass index (BMI) Body weight Body temperature Heart rate Systolic And Diastolic Provider Name and Address Organization Details Last Updated DateTime 3 160.02 cm 33 kg/m2 15746.6 2 g 97.8 [degF] 70 /min 100/67 mm[Hg] ANTHONY Reynaga [facility] 3 11:09:03 Date Recorded Body mass index (BMI) Body height Body temperature Body weight Systolic And Diastolic Provider Name and Address Organization Details Last Updated DateTime 07/14/2021 24.1 kg/m2 160.02 cm 97.6 [degF] 65915.5 6 g 114/62 mm[Hg] Not Available [facility] 3 05:57:14 Date Recorded Body mass index (BMI) Body height Oxygen saturation Oxygen saturation in Arterial blood by Pulse oximetry Heart rate Body temperature Body weight Systolic And Diastolic Provider Name and Address Organization Details Last Updated DateTime 2 24.8 kg/m2 160.02 cm 95 % 95 % 79 /min 97.6 [degF] 90295.2 1 g 105/78 mm[Hg] Not Available [facility] 3 05:57:14 Social History Question Answer Notes LastModified by Organizat ion Details LastModified Time Tobacco Smoking Status Former Smoker Not Available [facility] 12/09/2022 05:53:55 What Is Your Level Of Caffeine Consumption? Moderate [id number] Information not available 12/09/2022 In The 14 Days Before Symptom Onset, Have You Had Close Contact With A Laboratory-confirm ed COVID-19 While That Case Was Ill? No [id number] Information not available 12/09/2022 In The 14 Days Before Symptom Onset, Have You Had Close Contact With A Person Who Is Under Investigation For COVID-19 While That Person Was Ill? No [id number] Information not available 12/09/2022 Which Illicit Or Recreational Drugs Have You Used? None [id number] Information not available 12/09/2022 What Is Your Relationship Status? [id number] Information not available 12/09/2022 Do You Use Your Seat Belt Or Car Seat Routinely? Yes [id number] Information not available 12/09/2022 Have You Recently Traveled Abroad? No [id number] Information not available 12/09/2022 Sex: Female Functional Status Question Answer Note LastModified by Organizat ion Details LastModified Time Do you use any illicit or recreational drugs? No [id number] Information not available 12/09/2022 What is your level of alcohol consumption? Occasional [id number] Information not available 12/09/2022 What is your occupation? retired [id number] Information not available 12/09/2022 Do you or have you ever used e-cigarettes or vape? Never used electronic cigarettes [id number] Information not available 12/09/2022 What is your exercise level? Occasional [id number] Information not available 12/09/2022 Mental Status None recorded. Family History Relationship Description Onset Age of this Age Resolved Age Notes LastModified by Organization Details LastModified Time Mother Heart disease [id number] Not available 12/09/2022 05:56:34 Mother Aortic aneurysm [id number] Not available 12/09/2022 05:56:34 Sister Heart disease [id number] Not available 12/09/2022 05:56:34 Daughter Heart disease [id number] Not available 12/09/2022 05:56:34 Medical History Condition Response ARTHRITIS Y OSTEOPOROSIS Y HIGH CHOLESTEROL / HYPERLIPIDEMIA Y Gynecological History Statement/Question Response Abnormal Pap [...] SNOMED-CT Code Diagnosis ICD10 Code Diagnosis Note [id number] Gen Cowan MD _HARRIETT IGRATION_ DEFAULT_1 _1 , 04/24/2021 00:00:00 04/24/2021 10:59:41 [id number] S_Histor ic_[facility] _ATHENA_M IGRATION_ DEFAULT_1 _1 , 07/14/2021 00:00:00 07/14/2021 11:45:00 [id number] MD KELLY Umaña IGRATION_ DEFAULT_1 _1 , 12/11/2021 00:00:00 12/11/2021 10:06:04 [id number] S_Histor ic[facility] [address] [place] [address] 07/23/2022 00:00:00 07/23/2022 16:01:10 [id number] Gen Cowan MD S_[facility] [address] [place] [address] 05/03/2023 10:58:19 05/03/2023 11:39:07 Postmenopausal osteoporosis 245776199 M81.0 Patient bone density from 05/01 revealed [...] Rick Member ID Guarantor Name 04/30/2023 1 [facility] (MEDICARE REPLACEMENT/A DVANTAGE - HMO) [id number] Sarita Lieberman [id number] Sarita Lieberman Notes Date Note Type Note [...] siliciplant maximum strength collagen production She follows meal attendant for aneurysm surveillance due to strong family hx. labs from 04/02:vit D 47 ng/mLTSH of 2.24 uIU/mlFT4 of 0.9 ng/dLglucose 90 mg/dLcr normalLFT normalcalcium 9.5 mg/dLPTH 62 pg/ML Gen Cowan MD [address], [facility] [address], [place], [address], [place] - S [employer] 05/03/2023 11:56:48 OBGyn Episode No OBEpisode recorded.
--- OUTSIDE RECORDS SUMMARY | 2025-04-30 08:32 | XMS_ITS | Clinical Summary ---
Author Organization [facility] D Address [address] [place] [address] Care Team Providers Care Engraving Press Operator Name Role Phone Nestor Estrella MD Primary Care Provider +1 [phone] Allergies No known active allergies Medications calcium [...] Q10) 100 mg tablet Take by mouth radiological defense officer before 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 Assessment & Plan (12/09/2022 10:19 AM CROSSBAR FRAME WIRER): Although she has coronary calcification, indicating coronary [...] inhibitor. Assessment & Plan (12/09/2022 10:19 AM CROSSBAR FRAME WIRER): Unfortunately, she can muscle cramps on high-dose Lipitor but they have resolved with lower dose Lipitor with the addition of Zetia. Her last LDL was at or near goal so she will continue current medications. Atypical chest pain 2020 Pain of left arm 2020 Sebaceous cyst 12/02/2016 Melanocytic nevus of trunk 12/01/2016 [place] 12/01/2016 Family history of aneurysm 12/20/2012 Overview (01/15/2017): Family history of aneurysm Assessment & Plan (03/19/2025 11:38 AM CDT): No Sx at present. Will check abdominal USN to R/O AAA. Assessment & Plan (01/14/2024 12:19 PM CDT): No Sx at present. Assessment & Plan (12/09/2022 10:18 AM CROSSBAR FRAME WIRER): No symptoms of vascular aneurysm. Prior screening unremarkable. Hyperlipidemia 12/02/2012 Overview (01/15/2017): HYPERLIPIDEMIA NEC/NOS Encounters Date Type Department Care Team Description 03/26/2025 8:20 AM CDT - 03/26/2025 11:59 PM CDT Hospital Encounter [facility] - [facility] [address] [place] [id number] Family history of aneurysm Discharge Disposition: Discharge to home or self care 03/26/2025 Telephone [facility]iology [address] [place] [address] Stephan Bai MD Heart Concern 03/19/2025 11:00 AM CDT Office Visit [facility]iology [address] [place] [address] Stephan Bai MD Coronary artery calcification seen on CT scan (Primary Dx); Hyperlipidemia LDL goal <70; Family history of aneurysm from Last 3 Months Surgical History Surgery Date Site/Laterality Comments APPENDECTOMY 10/11/1961 - 10/10/1962 TOTAL HIP ARTHROPLASTY 11/14/2019 Right JOINT REPLACEMENT 10/11/2019 - 10/10/2020 Medical History Medical History Date Comments Hyperlipidemia Hyperlipidemia Osteoporosis Family History Medical History Relation Name Comments Early Daughter Dalia Stroke Daughter Dalia Brain Aneurysm Mother Aortic dissection Sister Shiela Heart disease Sister Shiela Relation Name Status Comments Daughter Dalia Father Mother Sister Shiela Social History Tobacco Use Types Packs/Day Years Used Date Smoking Tobacco: Former Cigarettes Q uit: 1987 Smokeless Tobacco: Never Comments:Smoking History Pac ks/day: 1 Packs Alcohol Use Standard Drinks/Week Comments Yes 0 (1 standard drink = 0.6 oz pur e alcohol) Comments Unknown Sex and Gender Information Value Date Recorded Sex Assigned at Not on file Legal Sex Female 2:47 AM CROSSBAR FRAME WIRER Gender Identity Female 06/09/2021 2:32 PM CDT [...] Density Scan 05/07/2024 05/07/2022, 04/11/2021 Influenza Vaccine (#1) 2025 Procedures Procedure Name Priority Date/Time Associated [...] Andrew Velez M.D. Stephan Bai MD IMG US PROCEDURES Final Result * (ABNORMAL) AST (03/12/2025 8:56 AM CDT) AST 39(H) 10 - 35 U/L [facility] Blood 03/12/2025 8:56 AM CDT 03/12/2025 8:57 AM CDT Narrative [facility] - 03/12/2025 5:06 PM CDT FASTING:YES FASTING: YES Stephan Bai MD LAB BLOOD ORDERABLES Fin al Result [facility] [address] [place] [address] * Lipid panel (03/12/2025 8:56 AM CDT) Cholesterol 143 <200 mg/dL [facility] HDL 75 > OR = 50 mg/dL [facility] Triglycerides 59 <150 mg/dL [facility] LDL 54 mg/dL (calc) [facility] Comment: Reference range: <100 Desirable range <100 mg/dL for primary prevention; <70 mg/dL for patients with CHD or diabetic patients with > or = 2 CHD risk factors. LDL-C is now calculated using the Chester-Bora calculation, which is a validated novel method providing better accuracy than the Friedewald equation in the estimation of LDL-C. Chester FIGUEROA et al. SERGIO. 2013;310(19): 4925-9106 (http://education.[facility]/faq/FDK846) Chol/HDL ratio 1.9 <5.0 (calc) [facility] Non-HDL, (LDL+VLDL) 68 <130 mg/dL (calc) [facility] Comment: For patients with diabetes plus 1 major ASCVD risk factor, treating to a non-HDL-C goal of <100 mg/dL (LDL-C of <70 mg/dL) is considered a therapeutic option. Blood 03/12/2025 8:56 AM CDT 03/12/2025 8:57 AM CDT Narrative [facility] - 03/12/2025 5:06 PM CDT FASTING:YES FASTING: YES us Stephan Bai MD LAB BLOOD ORDERABLES Fin al Result [facility] [address] [place] [address] from Last 3 Months Insurance [facility] MEDICARE ADVANTAGE Care Teams Engraving Press Operator Relationship Specialty Start Date End Date Nestor Estrella MD [address] [address] PCP - General Family Medicine 06/18/21
--- OUTSIDE RECORDS SUMMARY | 2025-04-30 08:32 | XMS_ITS | Clinical Summary ---
Author Organization [facility] Address [address] [place] [address] Care Team Providers Care Cnc Service Technician Name Role Phone Nestor Estrella MD Primary Care Provider [phone] [phone] Social History Tobacco Use Types Packs/Day Years Used Date Smoking Tobacco: Never Assessed Comments Unknown Sex and Gender Information Value Date Recorded Sex Assigned at Not on file Legal Sex Female 1:04 PM CDT Gender Identity Not on file Sexual Orientation Not on file Plan of Treatment Health Maintenance Due Date Last Done Comments Hepatitis C 1964 DTaP, Tdap and Td Vaccines ( 1 - Tdap) 1965 Zoster Vaccines (1 of 2) 1996 Annual Medicare Wellness Visit 2011 Dexa Scan (General) 2011 RSV Immunization or 60+ Years (1 - 1-dose 75+ series) 2021 COVID-19 Vaccine (3 - 2023-2 5 season) 2024 05/26/2021, 05/05/2021 Pneumococcal Vaccine: 50+ Years Completed 01/16/2021, 07/31/2019 Meningococcal B Vaccine Aged Out No l onger eligible based on patient's age to complete this topic Meningococcal Vaccine Aged Out No mabel antionette eligible based on patient's age to complete this topic RSV Immunizations Under 20 Months Aged Out No longer eligible b ased on patient's age to complete this topic Insurance [facility] Care Teams Cnc Service Technician Relationship Specialty Start Date End Date Nestor Estrella MD [address] [place] [address] [address] [place] [address] PCP - General FAMILY PRACTICE 08/15/21
[2025-04-30 08:53] LABS: Estimated Glomerular Filt Rate 54
== END 2025-04-30 08:30 | disposition home or self-care (01) ==
PROVIDERS: PCP Nurse Practitioner Family; Visit Provider Urology
DX: N13.30 Unspecified hydronephrosis (principal); R91.1 Solitary pulmonary nodule
CPT/HCPCS: 74178; Q9967

== ENCOUNTER 2025-08-06 08:53 | Outpatient (CLI) | payer MEDICARE, SELFPAY ==
--- NOTE | ~2025-08-06 | DEXA_ITS ---
Bone Density Report Name: PIERRE HAYNES Age: 79 Sex: Female Ethnicity: White Date of : 1945 Indication: postmenopausal osteoporosis; monitoring treatment; height loss; Referring Provider: ZAIRE WHITE Study: Bone densitometry was performed. Exam Date: August 06, 2025 Accession number: [id number] Bone Density: Region BMD T-score Z-score Classification AP Spine(L1-L4) 0.666 -3.5 -0.9 Osteoporosis Femoral Neck (Left) 0.557 -2.6 -0.4 Osteoporosis Total Hip (Left) 0.755 -1.5 0.5 Osteopenia World Health Organization criteria for BMD impression classify patients as: Normal (T-score at or above -1.0), Osteopenia (T-score between -1.0 and -2.5), or Osteoporosis (T-score at or below -2.5). 10-year Fracture Risk: FRAX not reported because: Some T-score for Spine Total or Hip Total or Femoral Neck at or below -2.5 Treated for osteoporosis Previous Exams: Region Exam Age BMD T-score BMD Change BMD Change Date g/cm2 vs Baseline vs Previous AP Spine (L1-L4) 08/06/2025 79 0.666 -3.5 0.014 (2.2%) -0.018 (-2.7%) 04/10/2021 75 0.684 -3.3 0.032 (5.0%)* 0.032 (5.0%)* 09/15/2018 72 0.652 -3.6 Total Hip(Left) 08/06/2025 79 0.755 -1.5 0.026 (3.6%) 0.038 (5.4%)* 04/10/2021 75 0.717 -1.8 -0.012 (-1.7%) -0.012 (-1.7%) 09/15/2018 72 0.729 -1.7 *Denotes significance at 95% confidence level, LSC for AP Spine = 0.022 g/cm2, LSC for Total Hip = 0.027 g/cm2 Clinical Information Provided by Patient: Is being treated for osteoporosis Has used the following medications: Forteo (i.e. parathyroid hormone), Vitamin D, Calcium Patient maximum height was 65 Menopause Age: 46 Drinks caffeinated beverages Onset of menses at age 3 Impression: The patient has osteoporosis, based on the Total Spine T-score. No significant bone loss was observed. Discussion: PATIENT UNDER TREATMENT WITH NO SIGNIFICANT BMD LOSS SINCE LAST EXAM. In an untreated patient, BMD typically declines with age. A lack of decline or gain is usually a sign that treatment is efficacious and fracture risk is reduced. It is important to ask patients whether they are taking their medications and to encourage continued and appropriate compliance with their osteoporosis therapies to reduce fracture risk. It is also important to review their risk factors and encourage appropriate calcium and vitamin D intakes, exercise, fall prevention and other lifestyle measures. Follow-Up: Consider a repeat BMD and Vertebral Fracture Assessment (VFA) exam in 2 years or sooner if medically necessary, to reassess this patient's status. Reported by: JORGE LUIS on 08/06/2025 9:35:00 AM. Reviewed, dictated and finalized at location A.
--- NOTE | ~2025-08-06 | MM_ITS ---
EXAMINATION: MM screening [facility] BI w [facility] HISTORY: Screening TECHNIQUE: Craniocaudal and mediolateral oblique 3-D tomosynthesis images were obtained and synthetic 2-D images were generated. CAD analysis was submitted and interpreted. COMPARISON: Comparison to multiple prior studies sequentially, with oldest reviewed study dated 05/23/2018. BREAST PARENCHYMAL COMPOSITION: Not dense: There are scattered areas of fibroglandular density. FINDINGS: There is no evidence of suspicious mass, calcification, or architectural distortion to suggest malignancy in either breast. There has been no suspicious interval change. IMPRESSION: 1. No mammographic evidence of malignancy. 2. Recommend routine screening mammography in one year. BI-RADS Category 1: Negative Reviewed, dictated and finalized at location B.
--- OUTSIDE RECORDS SUMMARY | 2025-08-06 09:31 | XMS_ITS | Clinical Summary ---
Author Organization [facility] Address [address] [place] [address] Care Team Providers Care Emergency Medical Dispatcher Name Role Phone Nestor Estrella MD Primary Care Provider [phone] Social History Tobacco Use Types Packs/Day Years [...] 75+ series) 2021 COVID-19 Vaccine (3 - 2024-2 6 season) 2025 05/26/2021, 05/05/2021 Influenza Adult (#1) 2025 Pneumococcal Vaccine: 50+ Years Completed 01/16/2021, 07/31/2019 Hepatitis A Vaccines Aged Out No long er eligible based on patient's age to complete this topic Meningococcal B Vaccine Aged Out No l onger eligible based on patient's age to complete this topic Meningococcal Vaccine Aged Out No mabel antionette eligible based on patient's age to complete this topic RSV Immunizations Under 20 Months Aged Out No longer eligible b ased on patient's age to complete this topic Insurance [facility] MEDICARE Care Teams Emergency Medical Dispatcher Relationship Specialty Start Date End Date Nestor Estrella MD [address] [place] [address] [address] [place] [address] PCP - General FAMILY PRACTICE 08/15/21
--- OUTSIDE RECORDS SUMMARY | 2025-08-06 09:31 | XMS_ITS | Clinical Summary ---
Author Organization [facility] D Address [address] [place] [address] Care Team Providers Care Cashier Or Checker Stock Clerk Name Role Phone Nestor Estrella MD Primary Care Provider [phone] [phone] Allergies No known active allergies Medications calcium [...] Q10) 100 mg tablet Take by mouth child welfare counselor before 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 Assessment & Plan (12/09/2022 10:19 AM CONTRACT MODELER): Although she has coronary calcification, indicating coronary [...] inhibitor. Assessment & Plan (12/09/2022 10:19 AM CONTRACT MODELER): Unfortunately, she can muscle cramps on high-dose Lipitor but they have resolved with lower dose Lipitor with the addition of Zetia. Her last LDL was at or near goal so she will continue current medications. Atypical chest pain 2020 Pain of left arm 2020 Sebaceous cyst 12/02/2016 Melanocytic nevus of trunk 12/01/2016 [place] 12/01/2016 Family history of aneurysm 12/20/2012 Overview (01/15/2017): Family history of aneurysm Assessment & Plan (03/19/2025 11:38 AM CDT): No Sx at present. Will check abdominal USN to R/O AAA. Assessment & Plan (01/14/2024 12:19 PM CDT): No Sx at present. Assessment & Plan (12/09/2022 10:18 AM CONTRACT MODELER): No symptoms of vascular aneurysm. Prior screening unremarkable. Hyperlipidemia 12/02/2012 Overview (01/15/2017): HYPERLIPIDEMIA NEC/NOS Surgical History Surgery Date Site/Laterality Comments APPENDECTOMY [...] on file Legal Sex Female 2:47 AM CONTRACT MODELER Gender Identity Female 06/09/2021 2:32 PM CDT [...] Pneumococcal vaccine 65+ (2 of 2 - PCV20 or PCV21) 07/31/2020 07/31/2019 Osteoporosis Screening-Bone Density Scan 05/07/2024 05/07/2022, 04/11/2021 Influenza Vaccine (#1) 2025 Insurance [facility] MEDICARE ADVANTAGE [facility] Address: [facility] [address] [place] [address] [facility] Address: [address] [address] [place] [address] [facility] MED[facility] Address: [address] [address] [place] [address] Care Teams Cashier Or Checker Stock Clerk Relationship Specialty Start Date End Date Nestor Estrella MD [address] [address] PCP - General Family Medicine 06/18/21
== END 2025-08-06 08:54 | disposition home or self-care (01) ==
LOC: ANHFOHIMG 08:56
PROVIDERS: PCP Nurse Practitioner Family; Visit Provider Nurse Practitioner Family
DX: Z12.31 Encounter for screening mammogram for malignant neoplasm of breast (principal); M81.0 Age-related osteoporosis without current pathological fracture; Z78.0 Asymptomatic menopausal state
CPT/HCPCS: 77063; 77067; 77080

== ENCOUNTER 2025-08-27 15:17 | Outpatient (CLI) | payer MEDICARE, SELFPAY ==
--- OUTSIDE RECORDS SUMMARY | 2010-04-16 04:30 | XMS_ITS | Continuity of Care Document ---
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 Name Role Phone Barrera OD, Yair Unavailable Unavailable Procedures Procedure Date Eye Exam Established Pt Contact Lens Hydrophilic, Spherical Tax - Medical Contact Lens Check Eye Exam & Treatment Refraction Eye Exam Established Pt Eye Exam Established Pt Advance Directives Directive Yes / No Effective Date File Name No Information Encounters Encounter Description Practice Location Reason(s) For Visit Diagnoses Date Provider Providers Copied on Encounter [facility], [address] [place] [address] [address], [place], [place], [id number], [place] tel:[phone] SEC [facility] No Information 7-201 0 Barrera OD Yair. [address] [facility] [place] , [address], [place], [address], [place]. tel:[phone] [facility], [address] [place] [address] [address], [place], [place], [id number], [place] tel:[phone] [facility] No Information 8-201 0 Barrera OD Yair. [address] [facility] , [address], [place], [address], [place]. tel:[phone] [facility], [address], [place], [place], [id number], [place] tel:[phone] [facility] [place] No Information Tera-0 2-201 0 Barrera OD Yair. [facility] , [address], [place], [address], [place]. tel:[phone] [facility], [address] [place] [address] [address], [place], [place], [id number], tel:[phone] [facility] No Information May-2 6-201 0 Barrera OD Yair. [address] [facility] , [address], [place], [place], [facility], [place]. tel:[phone] [facility], [address] [place] [address] [address], [place], [place], [id number], tel:[phone] SEC [facility] No Information May-2 0-201 0 Barrera OD Yair. [facility] , [address], [place], [place], [facility], [place]. tel:[phone] [facility], [address] [place] [address] [address], [place], [place], [id number], tel:[phone] [facility] No Information Dec-2 9-200 9 Barrera OD Yair. [address] [place], [place] [address] , [address], [place], [address], . tel:[phone] Family History Family Member Type Diagnosis Age At Onset No Information Payers Payer name Insurance type Covered republican ID Authoriza tion(s) No Information Social History Type Description Quantity Date Captured Comments Sex Female Smoking Status No Information Chief Complaint And Reason For Visit No Information Reason For Referral Reason For Referral No Information History Of Present Illness Encounter Date Complaint History Of Prese nt Illness No Information Functional Status Date Functional Assessmen t No Information Instructions Date Instruction Additional Infor mation No Information Assessments Type Assessment Date No Information Patient Care Teams Name Effective Dates (start - stop) Status Members No Information
--- NOTE | ~2025-08-27 | XR_ITS ---
EXAMINATION: XR chest 2V, 08/27/2025 16:10 GLIDING PILOT INSTRUCTOR HISTORY: R06.09 - Other forms of dyspnea COMPARISON: No comparisons available. Technique: 2 views obtained. Findings: The lungs are clear, no effusion. No pneumothorax. Heart is normal size. Mediastinal and hilar contours are within normal limits. Bony thorax no acute abnormality. Impression: No acute cardiopulmonary abnormality. Reviewed, dictated and finalized at location P. ING PILOT INSTRUCTOR Impression: No acute cardiopulmonary abnormality.
--- NOTE | 2025-08-27 15:34 | ECG_ITS ---
Test Date: 2025-08-27 15:54:12 Measurements Intervals Beauty Rate: 68 P: 55 [place]: 167 QRS: 55 QRSD: 126 T: 26 QT: 421 QTc: 450 Interpretive Statements SINUS RHYTHM RIGHT BUNDLE BRANCH BLOCK Electronically Signed On 08-27-2025 20:03:39 FRAMING MECHANIC by Russ Brown D.O
[2025-08-27 15:38] LABS: Hematocrit 41.6 % (37.0-47.0); Hemoglobin 13.7 g/dL (12.0-15.0); Immature Granulocyte Percent A 0.2 % (0-0.5); Lymphocytes Absolute Auto 1.96 K/mm3 (0.9-3.2); Mean Corpuscular HGB Conc 32.9 g/dl (32-36); Mean Corpuscular Hemoglobin 31.1 pg (26-34); Mean Corpuscular Volume 94.5 fl (80-100); Nucleated Red Blood Cells Absolute Auto 0.000 K/mm3 (0.0-0.012); Nucleated Red Blood Cells Perc 0.0 % (0.0-0.2); Platelet Count Result 198 k/mm3 (150-375); Red Blood Count 4.40 M/mm3 (4.2-5.4); White Blood Count 6.4 K/mm3 (4.5-10.0)
[2025-08-27 16:03] LABS: Alanine Aminotransferase 34 U/L (6-35); Albumin Level 5.2 g/dL (3.5-5.1); Alkaline Phosphatase 59 U/L (38-126); Anion Gap 9 mmol/L (4-12); Aspartate Amino Transferase 57 U/L (14-36); Bilirubin,Total 0.6 mg/dL (0.2-1.3); Blood Urea Nitrogen 14 mg/dL (7-17); Calcium 9.8 mg/dL (8.4-10.2); Carbon Dioxide 26 mmol/L (22-30); Chloride 102 mmol/L (98-107); Cholesterol 187 mg/dL (0-200); Estimated Glomerular Filt Rate 56; Glucose 88 mg/dL (65-110); HDL Direct 102 mg/dL; Potassium 3.6 mmol/L (3.4-5.0); Sodium 137 mmol/L (137-145); Total Protein 8.6 g/dL (6.3-8.2); Triglycerides 131 mg/dL (<150)
[2025-08-27 16:11] LABS: NT Pro B Type Natriuretic Pept 73 pg/mL (19.9-100)
[2025-08-27 16:16] LABS: Add Urine Microscopic? YES; Appearance Urine Clear (Clear); Glucose Urine UA Negative (Negative); Leukocyte Esterase Ur Trace LEU/UL (Negative); Nitrate Urine Negative (Negative); Non Pathogenic Casts 0-2; Specific Grav Ur 1.004 (1.001-1.035)
[2025-08-27 16:38] LABS: Thyroid Stimulating Hormone Reflex 2.850 uIU/mL (0.465-4.68)
--- OUTSIDE RECORDS SUMMARY | 2025-08-28 00:37 | XMS_ITS | Clinical Summary ---
Author Organization [facility] D Address [address] [place] [address] Care Team Providers Care Fellmongery Worker Name Role Phone Nestor Estrella MD Primary Care Provider +1 [phone] Allergies No known active allergies Medications calcium [...] Q10) 100 mg tablet Take by mouth jet handler before 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 Assessment & Plan (12/09/2022 10:19 AM EQUIPMENT DETAILER): Although she has coronary calcification, indicating coronary [...] inhibitor. Assessment & Plan (12/09/2022 10:19 AM EQUIPMENT DETAILER): Unfortunately, she can muscle cramps on high-dose Lipitor but they have resolved with lower dose Lipitor with the addition of Zetia. Her last LDL was at or near goal so she will continue current medications. Atypical chest pain 2020 Pain of left arm 2020 Sebaceous cyst 12/02/2016 Melanocytic nevus of trunk 12/01/2016 [place] 12/01/2016 Family history of aneurysm 12/20/2012 Overview (01/15/2017): Family history of aneurysm Assessment & Plan (03/19/2025 11:38 AM CDT): No Sx at present. Will check abdominal USN to R/O AAA. Assessment & Plan (01/14/2024 12:19 PM CDT): No Sx at present. Assessment & Plan (12/09/2022 10:18 AM EQUIPMENT DETAILER): No symptoms of vascular aneurysm. Prior screening [...] on file Legal Sex Female 2:47 AM EQUIPMENT DETAILER Gender Identity Female 06/09/2021 2:32 PM CDT [...] 05/07/2022, 04/11/2021 Influenza Vaccine (#1) 2025 Insurance [facility] MEDICARE ADVANTAGE Care Teams Fellmongery Worker Relationship Specialty Start Date End Date Nestor Estrella MD [address] [address] PCP - General Family Medicine 06/18/21
--- OUTSIDE RECORDS SUMMARY | 2025-08-28 00:38 | XMS_ITS | Clinical Summary ---
Author Organization [facility] Address [address] [place] [address] Care Team Providers Care Accounts Payables Clerk Name Role Phone Nestor Estrella MD Primary Care Provider +1 [phone] Social History Tobacco Use Types Packs/Day Years [...] patient's age to complete this topic Insurance [facility] MEDICARE Care Teams Accounts Payables Clerk Relationship Specialty Start Date End Date Nestor Estrella MD [address] [place] [address] [address] [place] [address] PCP - General FAMILY PRACTICE 08/15/21
== END 2025-08-27 15:18 | disposition home or self-care (01) ==
PROVIDERS: Family Medicine; PCP Nurse Practitioner Family; Visit Provider Nurse Practitioner Family
DX: R06.09 Other forms of dyspnea (principal); I45.10 Unspecified right bundle-branch block; E78.5 Hyperlipidemia, unspecified; N39.0 Urinary tract infection, site not specified
CPT/HCPCS: 36415; 71046; 80053; 80061; 81001; 83880; 84443; 85025; 85380; 93005